=== PATIENT | female | born 1955 | race Caucasian/White ===

== ENCOUNTER 2019-02-20 01:18 | Inpatient (IN) ==
[2019-02-20 02:09] LABS: Hematocrit (blood only) 22.5 % (37-47); Hemoglobin 7.6 g/dL (12.0-16.0); Mean Corpuscular Hemoglobin 29.6 pg (25-34); Mean Corpuscular Hgb Conc 33.8 g/dL (32-36); Mean Corpuscular Volume 87.5 fL (80-100); Nucleated RBC # (auto) 0.02 K/uL (0-0); Nucleated RBC % (auto) 1.1 %; RDW Coefficient of Variation 16.6 % (11.5-14.5); RDW Standard Deviation 52.2 fL (36.4-46.3); Red Blood Count 2.57 M/uL (4.2-5.4); White Blood Count 1.95 K/uL (4.8-10.8)
[2019-02-20 02:21] LABS: Partial Thromboplastin Ratio 0.9; Partial Thromboplastin Time 23.5 Seconds (21.0-31.0); Prothrombin Time 10.4 Seconds (9.0-12.0)
[2019-02-20 02:26] LABS: Albumin Level 3.7 gm/dl (3.4-5.0); BUN Creatinine Ratio 21.1 (10-20); Calcium 8.9 mg/dl (8.5-10.1); Est GFR (African American) 106.9; Est GFR (Non-African American) 92.2; Potassium 3.9 mmol/L (3.5-5.1)
[2019-02-20 02:29] LABS: Albumin Globulin Ratio 1.1 (0.9-2); Bilirubin,Total 0.3 mg/dl (0.2-1); Globulin 3.3 gm/dl (2.5-4.0)
[2019-02-20 02:39] LABS: Eosinophils # (auto) 0.03 K/uL (0-0.5); Eosinophils % (auto) 1.5 %; Lymphocytes # (auto) 0.47 K/uL (1.2-3.4); Lymphocytes % (auto) 24.1 %; Mean Platelet Volume 9.4 fL (7.4-10.4); Monocytes % (auto) 30.8 %; Neutrophils # (auto) 0.85 K/uL (1.4-6.5); Neutrophils % (auto) 43.6 %; Platelet Count 86 K/uL (130-400)
[2019-02-20 02:40] LABS: Platelet Estimate Decreased (Normal); RBC Morphology Unremarkable
[2019-02-20] MEDS ORDERED: IMIPENEM/CILASTATIN SODIUM 500 MG in DEXTROSE 5% 100 ML IV STA (03:18)
[2019-02-20] MEDS ORDERED: DAPTOmycin 500 MG in SYRINGE 0 ML IV STA (03:18)
[2019-02-20] MEDS ORDERED: SODIUM CHLORIDE 0.9% 1000ML 1,000 ML IV ONE (03:19)
[2019-02-20 04:16] LABS: Appearance Urine Cloudy (Clear); Bacteria Urine Automated Negative (Negative); Bilirubin Urine Negative (Negative); Blood Urine Negative (Negative); Color Urine Yellow; Epithelial Cell Urine Auto 20-30 /lpf (0-5); Glucose Urine UA Negative (Negative); Ketones Urine Negative (Negative); Leukocyte Esterase Urine 1+ (Negative); Nitrite Urine Negative (Negative); Protein Urine Negative (Negative); RBC Urine Automated 0-4 /hpf (0-4); Specific Gravity Urine 1.017 (1.000-1.030); Urobilinogen Urine Negative (Negative); pH Urine 7.5 (4.5-7.5)
--- NOTE | 2019-02-20 05:01 | History & Physical Report ---
Date of Service February 20, 2019 Assessment & Plan (1) Severe sepsis: SIRS plus lactic acid elevation Immunocompromised patient Chronic pancytopenia hx ALL ongoing chemotherapy status post Ommaya reservoir placement on antibiotic/antiviral/antifungal prophylaxis, ? Complicated UTI as source chronic anemia, hemoglobin at baseline GMF Cultures, Daptomycin, cefepime IVF, follow lactic acid DVT prophylaxis. SCDs RE thrombocytopenia Full code History of Present Illness Chief Complaint: Fever Primary Care Provider: Nicolas Cervantes DO History obtained from patient, family, and records. Medical history significant for ALL ongoing chemotherapy status post Ommaya reservoir placement on antibiotic/antiviral/antifungal prophylaxis, chronic anemia (baseline hemoglobin 78), chronic thrombocytopenia. 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 Recent chemotherapy at [facility] [place]/16/19. Patient was trying to get sleep last night when she suddenly felt cold. Temperature 101.4 Denies chest pain, S OB, cough, abdominal pain, diarrhea, dysuria. Transient frontal headache symptoms. At the ER, patient received daptomycin and imipenem for possible sepsis. Medical History as above Surgical History : Dental surgery, partial hysterectomy, a port placement, [employer] ventricular catheter placement Family History : Multiple myeloma, thalassemia, diabetes, heart disease Personal/Social history : Non-smoker, no EtOH intake, homemaker Allergies Allergy/AdvReac Type Severity Reaction Status Date / Time nickel Allergy Rash Verified 02/20/19 07:53 Home Medications Home Medications Medication Instructions Recorded Confirmed Type cholecalciferol (vitamin D3) 2,000 unit PO DAILY 12/20/18 02/20/19 History [Vitamin D3] docusate sodium [Colace] 100 mg PO BID 12/20/18 02/20/19 History acyclovir 400 mg PO BID 02/20/19 02/20/19 History cytarabine (PF) 140 mg SUBCUT DIRECTED 02/20/19 02/20/19 History fluconazole 400 mg PO DAILY 02/20/19 02/20/19 History glucosamine sulfate [Glucosamine] 500 mg PO DAILY 02/20/19 02/20/19 History levofloxacin 500 mg PO DAILY 02/20/19 02/20/19 History lidocaine-prilocaine 1 ea TOPICAL DIRECTED 02/20/19 02/20/19 History mercaptopurine 50 mg PO DAILY 02/20/19 02/20/19 History mupirocin 1 applic TOPICAL BID 02/20/19 02/20/19 History ondansetron HCl [Zofran] 8 mg PO TID PRN 02/20/19 02/20/19 History sulfamethoxazole-trimethoprim 1 tab PO DAILY 02/20/19 02/20/19 History Past Med/Surg History Medical History (Updated 02/20/19 @ 09:05 by Fady Nickerson MD) Leukemia Sciatica (Chronic) Family History (Updated 12/20/18 @ 17:51 by Alyce Healy) Other No significant family history Social History (Updated 12/20/18 @ 17:51 by Alyce Healy) Preferred Language: Urdu Communication Ability: Effective Payable Processor Required: No Beliefs That Will Affect Care: None Current Living Situation: Spouse and Family Current Living Situation Comment: daughter and family with patient now Other Information That Helps Us Care for You: No Feels Safe at Home: Yes Safety Concerns: Feels Safe At This Time Smoking Status: Never smoker Do You Dip or Chew Tobacco: No ; Second Hand Exposure: No ; Tobacco Cessation Education Requested by Patient: No Hx Alcohol Use: No Hx Substance Use: No Review of Systems Review of Systems: As per HPI, all 10 systems reviewed, all other ROS negative Physical Exam Physical Exam: GENERAL: Slightly uncomfortable, pleasant, no respiratory distress SKIN: Pallor , warm HEENT: Healed incisional scar on right parietal area of the head, partial alopecia, pale palpebral conjunctivae, no ptosis, dry buccal mucosa NECK : Supple, no tenderness CHEST : CTA, no tenderness HEART : RRR, no obvious murmurs ABDOMEN: Soft, nontender EXTREMITIES : No LE swelling/tenderness, no other conspicuous deformities noted NEUROLOGIC : Coherent, no facial asymmetry, no other gross focality Results & Data Vital Signs (Past 12 Hours) Vital Signs Temp Pulse Pulse Resp BP BP Pulse Ox 02/20/19 04:17 37.2 C 02/20/19 04:05 87 20 123/67 99 02/20/19 03:05 90 20 102/63 98 02/20/19 02:22 92 H 20 107/71 98 02/20/19 02:05 98 02/20/19 01:21 37.5 C 100 H 20 131/68 100 Laboratory Results Laboratory Results WBC 1.95 K/uL (4.8-10.8) L 02/20/19 01:53 RBC 2.57 M/uL (4.2-5.4) L 02/20/19 01:53 Hgb 7.6 g/dL (12.0-16.0) L 02/20/19 01:53 Hct 22.5 % (37-47) L 02/20/19 01:53 MCV 87.5 fL (80-100) 02/20/19 01:53 MCH 29.6 pg (25-34) 02/20/19 01:53 MCHC 33.8 g/dL (32-36) 02/20/19 01:53 RDW Std Deviation 52.2 fL (36.4-46.3) H 02/20/19 01:53 RDW Coeff of Julissa 16.6 % (11.5-14.5) H 02/20/19 01:53 Plt Count 86 K/uL (130-400) L 02/20/19 01:53 MPV 9.4 fL (7.4-10.4) 02/20/19 01:53 Immature Gran % (Auto) 0.0 % 02/20/19 01:53 Neut % (Auto) 43.6 % 02/20/19 01:53 Lymph % (Auto) 24.1 % 02/20/19 01:53 [place] % (Auto) 30.8 % 02/20/19 01:53 Eos % (Auto) 1.5 % 02/20/19 01:53 Baso % (Auto) 0.0 % 02/20/19 01:53 Immature Gran # (Auto) 0.00 K/uL (0.00-0.02) 02/20/19 01:53 Neut # (Auto) 0.85 K/uL (1.4-6.5) L* 02/20/19 01:53 Lymph # (Auto) 0.47 K/uL (1.2-3.4) L 02/20/19 01:53 [place] # (Auto) 0.60 K/uL (0.11-0.59) H 02/20/19 01:53 Eos # (Auto) 0.03 K/uL (0-0.5) 02/20/19 01:53 Baso # (Auto) 0.00 K/uL (0-0.2) 02/20/19 01:53 Absolute Nucleated RBC 0.02 K/uL (0-0) H 02/20/19 01:53 Nucleated RBC % (auto) 1.1 % 02/20/19 01:53 Platelet Estimate Decreased (Normal) L 02/20/19 01:53 RBC Morphology Unremarkable 02/20/19 01:53 PT 10.4 Seconds (9.0-12.0) 02/20/19 01:53 INR 1.0 (0.9-1.1) 02/20/19 01:53 APTT 23.5 Seconds (21.0-31.0) 02/20/19 01:53 PTT Ratio 0.9 02/20/19 01:53 Sodium 134 mmol/L (136-145) L 02/20/19 01:53 Potassium 3.9 mmol/L (3.5-5.1) 02/20/19 01:53 Chloride 103 mmol/L (98-107) 02/20/19 01:53 Carbon Dioxide 21 mmol/L (21-32) 02/20/19 01:53 Anion Gap 10.0 (3-11) 02/20/19 01:53 BUN 15 mg/dl (7-18) 02/20/19 01:53 Creatinine 0.70 mg/dl (0.6-1.2) 02/20/19 01:53 Est Cr Clr Drug Dosing 79.0 ml/min 02/20/19 01:53 Est GFR ( Amer) 106.9 02/20/19 01:53 Est GFR (Non-Af Amer) 92.2 02/20/19 01:53 BUN/Creatinine Ratio 21.1 (10-20) H 02/20/19 01:53 Glucose 126 mg/dl (70-99) H 02/20/19 01:53 Lactate 2.3 mmol/L (0.4-2.0) H* 02/20/19 02:19 Calcium 8.9 mg/dl (8.5-10.1) 02/20/19 01:53 Magnesium 2.0 mg/dl (1.8-2.4) 02/20/19 01:53 Total Bilirubin 0.3 mg/dl (0.2-1) 02/20/19 01:53 AST 35 U/L (15-37) 02/20/19 01:53 ALT 80 U/L (12-78) H 02/20/19 01:53 Alkaline Phosphatase 83 U/L (45-117) 02/20/19 01:53 Total Protein 7.0 gm/dl (6.4-8.2) 02/20/19 01:53 Albumin 3.7 gm/dl (3.4-5.0) 02/20/19 01:53 Globulin 3.3 gm/dl (2.5-4.0) 02/20/19 01:53 Albumin/Globulin Ratio 1.1 (0.9-2) 02/20/19 01:53 Urine Color Yellow 02/20/19 04:00 Urine Appearance Cloudy (Clear) A 02/20/19 04:00 Urine pH 7.5 (4.5-7.5) 02/20/19 04:00 Ur Specific [place] 1.017 (1.000-1.030) 02/20/19 04:00 Urine Protein Negative (Negative) 02/20/19 04:00 Urine Glucose (UA) Negative (Negative) 02/20/19 04:00 Urine Ketones Negative (Negative) 02/20/19 04:00 Urine Blood Negative (Negative) 02/20/19 04:00 Urine Nitrite Negative (Negative) 02/20/19 04:00 Urine Bilirubin Negative (Negative) 02/20/19 04:00 Urine Urobilinogen Negative (Negative) 02/20/19 04:00 Ur Leukocyte Esterase 1+ (Negative) H 02/20/19 04:00 Urine WBC (Auto) 1-5 /hpf (0-5) 02/20/19 04:00 Urine RBC (Auto) 0-4 /hpf (0-4) 02/20/19 04:00 U Hyaline Cast (Auto) 1-5 /lpf (0-5) 02/20/19 04:00 U Epithel Cells (Auto) 20-30 /lpf (0-5) H 02/20/19 04:00 Urine Bacteria (Auto) Negative (Negative) 02/20/19 04:00 Influenza Type A Ag Neg for Influ A (Neg) 02/20/19 01:53 Influenza Type B Ag Neg for Influ B (Neg) 02/20/19 01:53 Diagnostic Findings Chest x-ray as per my interpretation no infiltrate EKG as per my interpretation : Rate 90, NSR, normal axis, no ischemia C initial read: Right frontal ventriculostomy extending into right lateral ventricle. Ventricular system is nondilated. No mass lesion or midline shift. No evidence of large vessel infarct or intracranial hemorrhage.
--- NOTE | 2019-02-20 05:51 | CT Scan Report ---
CT head/brain wo con CT DOSE: 614.27 mGy.cm HISTORY: Mental status change altamirano, hx ommaya procedure TECHNIQUE: Multiaxial CT images of the head were performed without the use of intravenous contrast. A dose lowering technique was utilized adhering to the principles of ALARA. Comparison: 12/20/2018 Findings: The paranasal sinuses and mastoid air cells are clear. Transcatheter previously placed with in the right frontal lobe region extending to the right lateral ventricle. No acute intracranial abno rmality. Minimal findings of scattered encephalomalacia. No acute intracranial hemorrhage. Impression: Chronic and postoperative change. No acute process. ACT 112: Negative or not required by law. The above report was generated using voice recognition software. It may contain grammatical, syntax or spelling errors. Electronically signed by: Nathanael Sood M.D. 02/20/2019 5:50 AM
--- NOTE | 2019-02-20 06:08 | XRay Report ---
XR chest 1V portable CLINICAL HISTORY: SEPSIS dyspnea COMPARISON STUDY: 12/20/2018 FINDINGS: Central catheter positioned within the superior vena cava. Diaphragms are smooth. Lungs are clear. IMPRESSION: No acute process. ACT 112: Negative or not required by law. The above report was generated using voice recognition software. It may contain grammatical, syntax or spelling errors. Electronically signed by: Nathanael Sood M.D. 02/20/2019 6:07 AM
--- NOTE | 2019-02-20 07:24 | Emergency Department Note ---
Entered by Milton Swann acting as a scribe for History of Present Illness General Chief complaint: Fever Stated complaint: 101.4 FEVER - REF BY Time Seen by Provider: 02/20/19 01:32 Source: patient History of Present Illness Onset (ago): day(s) (last night) Severity: moderate (101.4 degree fever) Pain Consistency: + constant Maximum Pain Intensity: 1 Quality: + other (fever) Associated symptoms: + other (Positive for being cold. Negative for cough, SOB, abdominal pain, new rashes, urinary symptoms, and problems with her bowels.) The patient is a 63 year old female who presents to the emergency department with complaints of a constant fever beginning last night. The patient states that she has a history of leukemia and is receiving chemotherapy. She notes that she felt cold when she woke up this morning, and she reports that she had a 101.4 degree fever at that time. She denies any cough, SOB, abdominal pain, new rashes, urinary symptoms, and problems with her bowels. The patient states that she does not have any other health problems. Home Medications Home Medications Medication Instructions Recorded Confirmed Type cholecalciferol (vitamin D3) 2,000 unit PO DAILY 12/20/18 02/20/19 History [Vitamin D3] docusate sodium [Colace] 100 mg PO BID 12/20/18 02/20/19 History acyclovir 400 mg PO BID 02/20/19 02/20/19 History cytarabine (PF) 140 mg SUBCUT DIRECTED 02/20/19 02/20/19 History fluconazole 400 mg PO DAILY 02/20/19 02/20/19 History glucosamine sulfate [Glucosamine] 500 mg PO DAILY 02/20/19 02/20/19 History levofloxacin 500 mg PO DAILY 02/20/19 02/20/19 History lidocaine-prilocaine 1 ea TOPICAL DIRECTED 02/20/19 02/20/19 History mercaptopurine 50 mg PO DAILY 02/20/19 02/20/19 History mupirocin 1 applic TOPICAL BID 02/20/19 02/20/19 History ondansetron HCl [Zofran] 8 mg PO TID PRN 02/20/19 02/20/19 History sulfamethoxazole-trimethoprim 1 tab PO DAILY 02/20/19 02/20/19 History Allergies Allergy/AdvReac Type Severity Reaction Status Date / Time nickel Allergy Rash Verified 02/20/19 07:53 Past Med/Surg History Medical History (Updated 02/21/19 @ 08:08 by Anali Morataya DO) Leukemia Sciatica (Chronic) Family History (Updated 12/20/18 @ 17:51 by Alyce Healy) Other No significant family history Social History (Updated 12/20/18 @ 17:51 by Alyce Healy) Preferred Language: [place] Communication Ability: Effective 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 and A total of 10 systems reviewed and were otherwise negative Physical Exam Vital Signs Vital Signs - 24 hr 02/20/19 09:09 Pulse Rate [Right Finger] 92 H Respiratory Rate 20 Blood Pressure [Right Arm] 104/54 L Blood Pressure Mean [Right Arm] 70 Pulse Oximetry 93 Oxygen Delivery Method Room Air HEENT: Head - normocephalic and atraumatic Pupils are equal, round, and reactive to light. Extraocular eye muscles are intact, and sclera are anicteric. Nose - moist nasal mucosa without discharge. Mouth - moist buccal mucosa. Oropharynx is nonerythematous and there is no tonsillar exudate or edema noted. Neck: Supple; no cervical lymphadenopathy or nuchal rigidity Heart: Regular rate and rhythm. There is a normal S1 and S2 with no murmurs, clicks, or gallops appreciated. Lungs: Clear to auscultation bilaterally with no wheezes, rales, or rhonchi. Abdomen: Soft, completely nontender, nondistended, with good bowel sounds. There are no palpable pulsatile masses or hepatosplenomegaly. There is no guarding, rigidity, or rebound noted. Extremities: No evidence of cyanosis, clubbing, or edema. There are easily palpable peripheral pulses. Skin: warm and dry with good turgor and no rashes. Pale. Course Course 0156: The patient was evaluated in room B8. A complete history and physical examination were performed. A septic protocol was performed. The patient was placed into isolation. Nursing notes and previous electronic medical records were reviewed. IV lock was established and labs were drawn as above. A twelve- lead EKG was obtained 0320: I rechecked the patient and discussed her results. She would like to stay here and not be transferred. 0331: Sodium Chloride 1000 mls @ 999 mls/hr IV. I discussed the case with the hospitalist and he is agreeable to evaluate her for admission to [facility]. 0337: Upon reevaluation, the patient is stable. I discussed the findings and the treatment plan with the patient. She expresses agreement and understanding. [facility] The patient will be evaluated for further management. Consultations Consultation #1: I reviewed the patient's case with Dr. Nickerson - Hospitalist, [facility]. He will evaluate the patient for further management. Time: 03:37 Administered Medications Acetaminophen (Tylenol) 650 mg PO Q4H PRN PRN Reason: pain/fever Stop: 03/22/19 09:30 Last Admin: 02/20/19 23:28 Dose: 650 mg Documented by: [id number] Admin: 02/20/19 15:04 Dose: 650 mg Documented by: [id number] Acyclovir (Zovirax) 400 mg PO BID ORTEGA Stop: 03/22/19 09:30 Last Admin: 02/21/19 07:48 Dose: 400 mg Documented by: [id number] Admin: 02/20/19 20:59 Dose: 400 mg Documented by: [id number] Admin: 02/20/19 09:53 Dose: 400 mg Documented by: [id number] Docusate Sodium (Colace) 100 mg PO BID ORTEGA Stop: 03/22/19 09:30 Last Admin: 02/21/19 07:48 Dose: 100 mg Documented by: [id number] Admin: 02/20/19 20:59 Dose: 100 mg Documented by: [id number] Admin: 02/20/19 09:53 Dose: 100 mg Documented by: [id number] Fluconazole (Diflucan) 400 mg PO DAILY ORTEGA Stop: 03/22/19 09:30 Last Admin: 02/21/19 07:48 Dose: 400 mg Documented by: [id number] Admin: 02/20/19 09:53 Dose: 400 mg Documented by: [id number] Cefepime HCl 2,000 mg/ Syringe 20 mls @ 5 mls/min IV Q8H ORTEGA; Protocol Stop: 02/22/19 10:14 Last Admin: 02/21/19 01:38 Dose: 5 mls/min Documented by: [id number] Admin: 02/20/19 17:55 Dose: 5 mls/min Documented by: [id number] Admin: 02/20/19 11:01 Dose: 5 mls/min Documented by: [id number] Daptomycin 450 mg/ Syringe 9 mls @ 0 mls/min IV Q24H ORTEGA; Protocol Stop: 02/23/19 03:59 Last Admin: 02/21/19 03:49 Dose: 4.5 mls/min Documented by: [id number] Ibuprofen (Advil) 200 mg PO Q6H PRN PRN Reason: Mild Pain Stop: 03/22/19 09:30 Last Admin: 02/21/19 00:13 Dose: 200 mg Documented by: [id number] Discontinued Medications Imipenem/Cilastatin Sodium 500 (mg/ Dextrose) 110 mls @ 100 mls/hr IV NOW STA; Protocol Stop: 02/20/19 04:23 Last Infusion: 02/20/19 05:16 Dose: 0 mls/hr Documented by: [id number] Admin: 02/20/19 04:01 Dose: 100 mls/hr Documented by: [id number] Daptomycin 500 mg/ Syringe 10 mls @ 5 mls/min IV NOW STA; Protocol Stop: 02/20/19 03:19 Last Admin: 02/20/19 03:59 Dose: 5 mls/min Documented by: [id number] Sodium Chloride (Nss 1000ml) 1,000 mls @ 999 mls/hr IV .[id number] ONE Stop: 02/20/19 04:19 Last Infusion: 02/20/19 04:34 Dose: 0 mls/hr Documented by: [id number] Admin: 02/20/19 03:31 Dose: 999 mls/hr Documented by: [id number] Lactated Ringer's (Lr) 1,000 mls @ 60 mls/hr IV .[id number] ONE Stop: 02/21/19 02:10 Last Infusion: 02/21/19 00:48 Dose: 0 mls/hr Documented by: [id number] Admin: 02/20/19 10:01 Dose: 60 mls/hr Documented by: [id number] Lactated Ringer's (Lr) 1,000 mls @ 200 mls/hr IV .Q5H ONE Stop: 02/21/19 05:34 Last Infusion: 02/21/19 05:46 Dose: 0 mls/hr Documented by: [id number] Admin: 02/21/19 00:46 Dose: 200 mls/hr Documented by: [id number] Medical Decision Making Differential Diagnosis Differential diagnoses include: sepsis, neutropenic fever, influenza, UTI, and pneumonia. Medical Records Attestation: I reviewed the patient's medical records. Home Medications Current Medication List: was personally reviewed by me Laboratory Data Attestation: I reviewed the patient's lab results. Result diagrams: 02/21/19 05:32 02/21/19 05:32 Lab Results 02/20/19 02/20/19 02/20/19 Range/Units 01:53 01:53 01:53 WBC 1.95 L (4.8-10.8) K/uL RBC 2.57 L (4.2-5.4) M/uL Hgb 7.6 L (12.0-16.0) g/dL Hct 22.5 L (37-47) % MCV 87.5 (80-100) fL MCH 29.6 (25-34) pg MCHC 33.8 (32-36) g/dL RDW Std Deviation 52.2 H (36.4-46.3) fL RDW Coeff of Julissa 16.6 H (11.5-14.5) % Plt Count 86 L (130-400) K/uL MPV 9.4 (7.4-10.4) fL Immature Gran % (Auto) 0.0 % Neut % (Auto) 43.6 % Lymph % (Auto) 24.1 % [place] % (Auto) 30.8 % Eos % (Auto) 1.5 % Baso % (Auto) 0.0 % Immature Gran # (Auto) 0.00 (0.00-0.02) K/uL Neut # (Auto) 0.85 L* (1.4-6.5) K/uL Lymph # (Auto) 0.47 L (1.2-3.4) K/uL [place] # (Auto) 0.60 H (0.11-0.59) K/uL Eos # (Auto) 0.03 (0-0.5) K/uL Baso # (Auto) 0.00 (0-0.2) K/uL Absolute Nucleated RBC 0.02 H (0-0) K/uL Nucleated RBC % (auto) 1.1 % Platelet Estimate Decreased L (Normal) RBC Morphology Unremarkable PT 10.4 (9.0-12.0) Seconds INR 1.0 (0.9-1.1) APTT 23.5 (21.0-31.0) Seconds PTT Ratio 0.9 Sodium 134 L (136-145) mmol/L Potassium 3.9 (3.5-5.1) mmol/L Chloride 103 (98-107) mmol/L Carbon Dioxide 21 (21-32) mmol/L Anion Gap 10.0 (3-11) BUN 15 (7-18) mg/dl Creatinine 0.70 (0.6-1.2) mg/dl Est Cr Clr Drug Dosing 79.0 ml/min Est GFR ( Amer) 106.9 Est GFR (Non-Af Amer) 92.2 BUN/Creatinine Ratio 21.1 H (10-20) Glucose 126 H (70-99) mg/dl Lactate (0.4-2.0) mmol/L Calcium 8.9 (8.5-10.1) mg/dl Magnesium 2.0 (1.8-2.4) mg/dl Total Bilirubin 0.3 (0.2-1) mg/dl AST 35 (15-37) U/L ALT 80 H (12-78) U/L Alkaline Phosphatase 83 (45-117) U/L Total Protein 7.0 (6.4-8.2) gm/dl Albumin 3.7 (3.4-5.0) gm/dl Globulin 3.3 (2.5-4.0) gm/dl Albumin/Globulin Ratio 1.1 (0.9-2) Procalcitonin (0-0.5) ng/ml TSH (0.300-4.500) uIu/ml Urine Color Urine Appearance (Clear) Urine pH (4.5-7.5) Ur Specific [place] (1.000-1.030) Urine Protein (Negative) Urine Glucose (UA) (Negative) Urine Ketones (Negative) Urine Blood (Negative) Urine Nitrite (Negative) Urine Bilirubin (Negative) Urine Urobilinogen (Negative) Ur Leukocyte Esterase (Negative) Urine WBC (Auto) (0-5) /hpf Urine RBC (Auto) (0-4) /hpf U Hyaline Cast (Auto) (0-5) /lpf U Epithel Cells (Auto) (0-5) /lpf Urine Bacteria (Auto) (Negative) Influenza Type A Ag (Neg) Influenza Type B Ag (Neg) Blood Type Antibody Screen Crossmatch 02/20/19 02/20/19 02/20/19 Range/Units 01:53 02:19 04:00 WBC (4.8-10.8) K/uL RBC (4.2-5.4) M/uL Hgb (12.0-16.0) g/dL Hct (37-47) % MCV (80-100) fL MCH (25-34) pg MCHC (32-36) g/dL RDW Std Deviation (36.4-46.3) fL RDW Coeff of Julissa (11.5-14.5) % Plt Count (130-400) K/uL MPV (7.4-10.4) fL Immature Gran % (Auto) % Neut % (Auto) % Lymph % (Auto) % [place] % (Auto) % Eos % (Auto) % Baso % (Auto) % Immature Gran # (Auto) (0.00-0.02) K/uL Neut # (Auto) (1.4-6.5) K/uL Lymph # (Auto) (1.2-3.4) K/uL [place] # (Auto) (0.11-0.59) K/uL Eos # (Auto) (0-0.5) K/uL Baso # (Auto) (0-0.2) K/uL Absolute Nucleated RBC (0-0) K/uL Nucleated RBC % (auto) % Platelet Estimate (Normal) RBC Morphology PT (9.0-12.0) Seconds INR (0.9-1.1) APTT (21.0-31.0) Seconds PTT Ratio Sodium (136-145) mmol/L Potassium (3.5-5.1) mmol/L Chloride (98-107) mmol/L Carbon Dioxide (21-32) mmol/L Anion Gap (3-11) BUN (7-18) mg/dl Creatinine (0.6-1.2) mg/dl Est Cr Clr Drug Dosing ml/min Est GFR ( Amer) Est GFR (Non-Af Amer) BUN/Creatinine Ratio (10-20) Glucose (70-99) mg/dl Lactate 2.3 H* (0.4-2.0) mmol/L Calcium (8.5-10.1) mg/dl Magnesium (1.8-2.4) mg/dl Total Bilirubin (0.2-1) mg/dl AST (15-37) U/L ALT (12-78) U/L Alkaline Phosphatase (45-117) U/L Total Protein (6.4-8.2) gm/dl Albumin (3.4-5.0) gm/dl Globulin (2.5-4.0) gm/dl Albumin/Globulin Ratio (0.9-2) Procalcitonin (0-0.5) ng/ml TSH (0.300-4.500) uIu/ml Urine Color Yellow Urine Appearance Cloudy A (Clear) Urine pH 7.5 (4.5-7.5) Ur Specific [place] 1.017 (1.000-1.030) Urine Protein Negative (Negative) Urine Glucose (UA) Negative (Negative) Urine Ketones Negative (Negative) Urine Blood Negative (Negative) Urine Nitrite Negative (Negative) Urine Bilirubin Negative (Negative) Urine Urobilinogen Negative (Negative) Ur Leukocyte Esterase 1+ H (Negative) Urine WBC (Auto) 1-5 (0-5) /hpf Urine RBC (Auto) 0-4 (0-4) /hpf U Hyaline Cast (Auto) 1-5 (0-5) /lpf U Epithel Cells (Auto) 20-30 H (0-5) /lpf Urine Bacteria (Auto) Negative (Negative) Influenza Type A Ag Neg for Influ A (Neg) Influenza Type B Ag Neg for Influ B (Neg) Blood Type Antibody Screen Crossmatch 02/20/19 02/20/19 02/20/19 Range/Units 04:31 04:31 04:31 WBC (4.8-10.8) K/uL RBC (4.2-5.4) M/uL Hgb (12.0-16.0) g/dL Hct (37-47) % MCV (80-100) fL MCH (25-34) pg MCHC (32-36) g/dL RDW Std Deviation (36.4-46.3) fL RDW Coeff of Julissa (11.5-14.5) % Plt Count (130-400) K/uL MPV (7.4-10.4) fL Immature Gran % (Auto) % Neut % (Auto) % Lymph % (Auto) % [place] % (Auto) % Eos % (Auto) % Baso % (Auto) % Immature Gran # (Auto) (0.00-0.02) K/uL Neut # (Auto) (1.4-6.5) K/uL Lymph # (Auto) (1.2-3.4) K/uL [place] # (Auto) (0.11-0.59) K/uL Eos # (Auto) (0-0.5) K/uL Baso # (Auto) (0-0.2) K/uL Absolute Nucleated RBC (0-0) K/uL Nucleated RBC % (auto) % Platelet Estimate (Normal) RBC Morphology PT (9.0-12.0) Seconds INR (0.9-1.1) APTT (21.0-31.0) Seconds PTT Ratio Sodium (136-145) mmol/L Potassium (3.5-5.1) mmol/L Chloride (98-107) mmol/L Carbon Dioxide (21-32) mmol/L Anion Gap (3-11) BUN (7-18) mg/dl Creatinine (0.6-1.2) mg/dl Est Cr Clr Drug Dosing ml/min Est GFR ( Amer) Est GFR (Non-Af Amer) BUN/Creatinine Ratio (10-20) Glucose (70-99) mg/dl Lactate (0.4-2.0) mmol/L Calcium (8.5-10.1) mg/dl Magnesium (1.8-2.4) mg/dl Total Bilirubin (0.2-1) mg/dl AST (15-37) U/L ALT (12-78) U/L Alkaline Phosphatase (45-117) U/L Total Protein (6.4-8.2) gm/dl Albumin (3.4-5.0) gm/dl Globulin (2.5-4.0) gm/dl Albumin/Globulin Ratio (0.9-2) Procalcitonin < 0.05 (0-0.5) ng/ml TSH 2.060 (0.300-4.500) uIu/ml Urine Color Urine Appearance (Clear) Urine pH (4.5-7.5) Ur Specific [place] (1.000-1.030) Urine Protein (Negative) Urine Glucose (UA) (Negative) Urine Ketones (Negative) Urine Blood (Negative) Urine Nitrite (Negative) Urine Bilirubin (Negative) Urine Urobilinogen (Negative) Ur Leukocyte Esterase (Negative) Urine WBC (Auto) (0-5) /hpf Urine RBC (Auto) (0-4) /hpf U Hyaline Cast (Auto) (0-5) /lpf U Epithel Cells (Auto) (0-5) /lpf Urine Bacteria (Auto) (Negative) Influenza Type A Ag (Neg) Influenza Type B Ag (Neg) Blood Type B Negative Antibody Screen NEGATIVE Crossmatch See Detail 02/20/19 Range/Units 04:31 WBC (4.8-10.8) K/uL RBC (4.2-5.4) M/uL Hgb (12.0-16.0) g/dL Hct (37-47) % MCV (80-100) fL MCH (25-34) pg MCHC (32-36) g/dL RDW Std Deviation (36.4-46.3) fL RDW Coeff of Julissa (11.5-14.5) % Plt Count (130-400) K/uL MPV (7.4-10.4) fL Immature Gran % (Auto) % Neut % (Auto) % Lymph % (Auto) % [place] % (Auto) % Eos % (Auto) % Baso % (Auto) % Immature Gran # (Auto) (0.00-0.02) K/uL Neut # (Auto) (1.4-6.5) K/uL Lymph # (Auto) (1.2-3.4) K/uL [place] # (Auto) (0.11-0.59) K/uL Eos # (Auto) (0-0.5) K/uL Baso # (Auto) (0-0.2) K/uL Absolute Nucleated RBC (0-0) K/uL Nucleated RBC % (auto) % Platelet Estimate (Normal) RBC Morphology PT (9.0-12.0) Seconds INR (0.9-1.1) APTT (21.0-31.0) Seconds PTT Ratio Sodium (136-145) mmol/L Potassium (3.5-5.1) mmol/L Chloride (98-107) mmol/L Carbon Dioxide (21-32) mmol/L Anion Gap (3-11) BUN (7-18) mg/dl Creatinine (0.6-1.2) mg/dl Est Cr Clr Drug Dosing ml/min Est GFR ( Amer) Est GFR (Non-Af Amer) BUN/Creatinine Ratio (10-20) Glucose (70-99) mg/dl Lactate 1.3 (0.4-2.0) mmol/L Calcium (8.5-10.1) mg/dl Magnesium (1.8-2.4) mg/dl Total Bilirubin (0.2-1) mg/dl AST (15-37) U/L ALT (12-78) U/L Alkaline Phosphatase (45-117) U/L Total Protein (6.4-8.2) gm/dl Albumin (3.4-5.0) gm/dl Globulin (2.5-4.0) gm/dl Albumin/Globulin Ratio (0.9-2) Procalcitonin (0-0.5) ng/ml TSH (0.300-4.500) uIu/ml Urine Color Urine Appearance (Clear) Urine pH (4.5-7.5) Ur Specific [place] (1.000-1.030) Urine Protein (Negative) Urine Glucose (UA) (Negative) Urine Ketones (Negative) Urine Blood (Negative) Urine Nitrite (Negative) Urine Bilirubin (Negative) Urine Urobilinogen (Negative) Ur Leukocyte Esterase (Negative) Urine WBC (Auto) (0-5) /hpf Urine RBC (Auto) (0-4) /hpf U Hyaline Cast (Auto) (0-5) /lpf U Epithel Cells (Auto) (0-5) /lpf Urine Bacteria (Auto) (Negative) Influenza Type A Ag (Neg) Influenza Type B Ag (Neg) Blood Type Antibody Screen Crossmatch Imaging Data Attestation: I personally reviewed and interpreted this imaging study as follows: My Impression: CHEST X-RAY: Mediport in place. No obvious pulmonary infiltrate or consolidation. ECG Data Attestation: I personally reviewed and interpreted this ECG as follows: Indication: + weakness Rate (beats per minute): 91 Rhythm: + normal sinus ECG ST segments: no ST depression and no ST elevation ECG Findings: no PACs and no PVCs Blood Pressure Blood Pressure Findings: Normal blood pressure Blood Pressure Disposition: did not require urgent referral MDM Narrative The patient is a 63 year old female who presents to the emergency department with complaints of a constant fever beginning last night. The patient has a history of recently diagnosed leukemia and has been receiving intensive tez motherapy. She presents to the emergency department tonight with no specific symptoms but did have a fever. On laboratory testing, the patient appears to have pancytopenia and most concerning her absolute neutrophil count is quite low. The patient had an elevated lactate and therefore will be treated as sepsis. She was treated with broad-spectrum IV antibiotics for a neutropenic fever. The patient was requesting admission to [facility] as opposed to being transferred to [facility]. I discussed the case with Dr. Morris and he was willing to do this. The patient's blood pressure was slightly low but she states that normally it may be in the 90s. Impression & Plan Neutropenic fever, Pancytopenia Discharge Plan Visit Data *Final* Discharge Date/Time: 02/20/19 09:20 Chief Complaint: Fever Stated Complaint: 101.4 FEVER - REF BY ED Provider: Anali Morataya Discharge Problem: Neutropenic fever, Pancytopenia Patient Disposition: Admitted As Inpatient Discharge Instructions Interventions: ED Discharge Assessment Last Done: 02/20/19 09:20 The scribe's documentation has been prepared under my direction and personally reviewed by me in its entirety. I confirm that the note above accurately reflects all work, treatment, procedures, and medical decision making performed by me.
[2019-02-20] MEDS ORDERED: LACTATED RINGER'S 1,000 ML IV ONE (09:31)
[2019-02-20] MEDS ORDERED: PROMETHAZINE HCL 12.5 MG in SODIUM CHLORIDE 0.9% 50 ML IV PRN (09:31)
[2019-02-20] MEDS ORDERED: CONSULT PHARMACY SCH (09:31)
[2019-02-20] MEDS ORDERED: IBUPROFEN 200 MG TAB PO PRN (09:31)
[2019-02-20] MEDS ORDERED: LORazepam 0.25 MG/0.5 ML VIAL IV PRN (09:31)
[2019-02-20] MEDS: FLUCONAZOLE 100 MG TAB PO SCH (09:53)
[2019-02-20] MEDS: ACYCLOVIR 400 MG TAB PO SCH ×2 (09:53→20:59)
[2019-02-20] MEDS: DOCUSATE SODIUM 100 MG CAP PO SCH ×2 (09:53→20:59)
[2019-02-20] MEDS ORDERED: DAPTOMYCIN CONSULT ACTIVE PRN (10:06)
[2019-02-20] MEDS ORDERED: CEFEPIME CONSULT ACTIVE PRN (10:06)
[2019-02-20] MEDS: CEFEPIME 2,000 MG in SYRINGE 7.5 ML IV SCH ×2 (11:01→17:55)
--- NOTE | 2019-02-20 12:53 | Electrocardiogram Report ---
Test Reason : Blood Pressure : / mmHG Vent. Rate : 091 BPM Atrial Rate : 091 BPM P-R Int : 150 ms QRS Dur : 070 ms QT Int : 374 ms P-R-T Axes : 002 030 026 degrees QTc Int : 460 ms Normal sinus rhythm Normal ECG When compared with ECG of 20-DEC-2018 13:14, No significant change was found Confirmed by Andres Springer ([id number]) on 02/20/2019 12:53:10 PM Referred By: PUJA DUNCAN Confirmed By:Andres Springer
[2019-02-20] MEDS: ACETAMINOPHEN 325 MG TAB PO PRN ×2 (15:04→23:28)
[2019-02-21] MEDS ORDERED: LACTATED RINGER'S 1,000 ML IV ONE (00:35)
[2019-02-21] MEDS: CEFEPIME 2,000 MG in SYRINGE 7.5 ML IV SCH ×3 (01:38→17:57)
[2019-02-21] MEDS: DAPTOmycin 450 MG in SYRINGE 0 ML IV SCH (03:49)
[2019-02-21 05:52] LABS: Hematocrit (blood only) 19.5 % (37-47); Hemoglobin 6.5 g/dL (12.0-16.0); Mean Corpuscular Hemoglobin 29.5 pg (25-34); Mean Corpuscular Hgb Conc 33.3 g/dL (32-36); Mean Corpuscular Volume 88.6 fL (80-100); Mean Platelet Volume 9.4 fL (7.4-10.4); Nucleated RBC # (auto) 0.02 K/uL (0-0); Nucleated RBC % (auto) 0.9 %; Platelet Count 98 K/uL (130-400); RDW Standard Deviation 54.1 fL (36.4-46.3); White Blood Count 2.09 K/uL (4.8-10.8)
[2019-02-21] MEDS ORDERED: SODIUM CHLORIDE 0.9% 250 ML IV PRN ×2 (05:58→09:05)
[2019-02-21 06:17] LABS: Dohle Bodies 1+; Eosinophils # (auto) 0.03 K/uL (0-0.5); Eosinophils % (auto) 1.4 %; Giant Platelets 1+; Immature Granulocytes # (auto) 0.01 K/uL (0.00-0.02); Immature Granulocytes % (auto) 0.5 %; Lymphocytes # (auto) 0.33 K/uL (1.2-3.4); Lymphocytes % (auto) 15.8 %; Monocytes # (auto) 0.38 K/uL (0.11-0.59); Monocytes % (auto) 18.2 %; Neutrophils # (auto) 1.34 K/uL (1.4-6.5); Neutrophils % (auto) 64.1 %
[2019-02-21 06:29] LABS: BUN Creatinine Ratio 14.6 (10-20); Calcium 8.7 mg/dl (8.5-10.1); Creatinine Clr Calc Pharmacy 106.4 ml/min; Est GFR (African American) 117.9; Est GFR (Non-African American) 101.7; Magnesium 2.1 mg/dl (1.8-2.4); Potassium 3.9 mmol/L (3.5-5.1)
[2019-02-21] MEDS: ACYCLOVIR 400 MG TAB PO SCH ×2 (07:48→20:44)
[2019-02-21] MEDS: FLUCONAZOLE 100 MG TAB PO SCH (07:48)
[2019-02-21] MEDS: DOCUSATE SODIUM 100 MG CAP PO SCH ×2 (07:48→20:44)
--- NOTE | 2019-02-21 09:45 | Hospitalist Progress Note ---
Date of Service February 20, 2019 I discussed care with patient's oncologist, Dr. Edna Baez, at [facility]. She agreed with broad-spectrum antibiotics (patient is on cefepime and daptomycin), recommended to only hold Levaquin from her home antibiotic regimen. She also stressed to make sure that we use irradiated blood products if patient needs a transfusion. Her goal for hemoglobin is above 7 and goal for platelets above 10. She also said that she would prefer transfer to [place] if patient continues to be febrile. Patient is lying in bed, in no acute distress, says that she is little tired. Lungs are clear to auscultation bilaterally, heart sounds are regular, no murmurs noted, abdomen is soft nontender nondistended. There is no lower extremity edema, there is no rash or lesion on her skin, she moves all 4 extremities spontaneously. She is only mildly tachycardic. Labs significant for hemoglobin of 7.6, white blood cell count 1.95, ANC 0.02. Results & Data Vital Signs (Past 12 Hours) Vital Signs Temp Pulse Resp BP Pulse Ox 02/21/19 07:24 36.9 C 82 20 100/66 100 02/21/19 00:10 38.2 C H 02/20/19 23:39 39.4 C H 98 H 20 112/69 95
--- NOTE | 2019-02-21 10:51 | Hospitalist Progress Note ---
Date of Service February 21, 2019 Assessment & Plan (1) Severe sepsis: Neutropenic fever SIRS plus lactic acid elevation on admission Immunocompromised patient Chronic pancytopenia Now Hgb 6.5 -we will transfuse today, 1 unit of packed red blood cells, consent obtained, must use irradiated blood products ALL (diagnosed in December 2018) ongoing chemotherapy (weekly, the next 1 planned for February 22) status post Ommaya reservoir placement on antibiotic/antiviral/antifungal prophylaxis -Follows with oncologist, Dr. Baez, in [facility] -Dr. Baez, was contacted yesterday by be, she is aware of the patient and and so is oncologist installation superintendent in [facility], Dr. Wall -Continue to follow-up white blood cell count/ANC closely, currently improving -Also continue to monitor H&H Persistent fever Pt had a fever 38.3C at 3 PM yesterday and then at night 39.4C, then 30 min later 38.2C. Called [facility] and talked to Dr. Wall ( oncologist installation superintendent) for possible transfer (as Dr. Baez said yesterday to consider transfer if pt continues to have a fever while on antibiotic treatment). At this point Dr. Wall feels comfortable if pt stays here and treatment plan was discussed with him. He is also ok to accept the pt if she would like to be transferred (confirmed bed availability). Patient does not wish to be transferred at this time and prefers to stay here for now. Source unclear ? Complicated UTI as source Strickland cultured - pending - started on Daptomycin, cefepime, will cont. for broad antibiotic coverage -We will also continue Bactrim, fluconazole and acyclovir, will hold Levaquin, this was discussed with patient's oncologist -IVF, follow lactic acid DVT prophylaxis. SCDs RE thrombocytopenia Full code Subjective Patient is currently lying in bed, in no acute distress, at the bedside. Says that she feels tired, but overall well. Denies any abdominal pain, nausea or vomiting. Also denies any chest pain, shortness of breath. notes that she had fever however now feels well. Pt had a fever 38.3C at 3 PM yesterday and then at night 39.4C, then 30 min later 38.2C. Called [facility] and talked to Dr. Wall (oncologist installation superintendent) for possible transfer (as Dr. Baez said yesterday to consider transfer if pt continues to have a fever while on antibiotic treatment). At this point Dr. Wall feels comfortable if pt stays here and treatment plan was discussed with him. He is also ok to accept the pt if she would like to be transferred (confirmed bed availability). Patient does not wish to be transferred at this time and prefers to stay here for now. Hemoglobin 6.5, will transfuse, consent obtained, must use irradiated blood product Review of Systems Review of Systems: All systems reviewed & are unremarkable except as noted in HPI & below Constitutional: no fever (but had fever at night) and no chills Respiratory: no cough, no dyspnea and no pain on inspiration Cardiovascular: no chest pain, no palpitations and no edema Gastrointestinal: no abdominal pain, no nausea and no vomiting Physical Exam Physical Exam: GENERAL: Female patient lying in bed, in no acute distress HEENT: ommaya placement on the right front side, well healed, pale palpebral conjunctivae, EOMI, PERRL, most mucous membrane NECK : Supple, no tenderness CHEST : Clear to auscultation bilaterally, no wheezing or rhonchi or crackles HEART : RRR, no obvious murmurs ABDOMEN: Positive bowel sounds, soft, nontender, nondistended, no guarding EXTREMITIES : No LE swelling/tenderness, moves all 4 extremities spontaneously and without difficulty SKIN: Pallor , warm NEUROLOGIC : Alert and oriented x3, no facial asymmetry, answers questions appropriately, speech fluent, moves forcibly spontaneously Results & Data Vital Signs (Past 12 Hours) Vital Signs Temp Pulse Resp BP Pulse Ox 02/21/19 07:24 36.9 C 82 20 100/66 100 02/21/19 00:10 38.2 C H 02/20/19 23:39 39.4 C H 98 H 20 112/69 95 Laboratory Results 02/21/19 02/21/19 02/21/19 Range/Units 05:32 05:32 05:32 WBC 2.09 L (4.8-10.8) K/uL RBC 2.20 L (4.2-5.4) M/uL Hgb 6.5 L* (12.0-16.0) g/dL Hct 19.5 L* (37-47) % MCV 88.6 (80-100) fL MCH 29.5 (25-34) pg MCHC 33.3 (32-36) g/dL RDW Std Deviation 54.1 H (36.4-46.3) fL RDW Coeff of Julissa 17.0 H (11.5-14.5) % Plt Count 98 L (130-400) K/uL MPV 9.4 (7.4-10.4) fL Immature Gran % (Auto) 0.5 % Neut % (Auto) 64.1 % Lymph % (Auto) 15.8 % Logan % (Auto) 18.2 % Eos % (Auto) 1.4 % Baso % (Auto) 0.0 % Immature Gran # (Auto) 0.01 (0.00-0.02) K/uL Neut # (Auto) 1.34 L (1.4-6.5) K/uL Lymph # (Auto) 0.33 L (1.2-3.4) K/uL Logan # (Auto) 0.38 (0.11-0.59) K/uL Eos # (Auto) 0.03 (0-0.5) K/uL Baso # (Auto) 0.00 (0-0.2) K/uL Absolute Nucleated RBC 0.02 H (0-0) K/uL Nucleated RBC % (auto) 0.9 % Dohle Bodies 1+ Giant Platelets 1+ Sodium 140 (136-145) mmol/L Potassium 3.9 (3.5-5.1) mmol/L Chloride 110 H (98-107) mmol/L Carbon Dioxide 28 (21-32) mmol/L Anion Gap 2.0 L (3-11) BUN 8 D (7-18) mg/dl Creatinine 0.52 L (0.6-1.2) mg/dl Est Cr Clr Drug Dosing 106.4 ml/min Est GFR ( Amer) 117.9 Est GFR (Non-Af Amer) 101.7 BUN/Creatinine Ratio 14.6 (10-20) Glucose 103 H (70-99) mg/dl Calcium 8.7 (8.5-10.1) mg/dl Magnesium 2.1 (1.8-2.4) mg/dl Blood Type Blood Type Recheck B Negative Antibody Screen Crossmatch 02/20/19 Range/Units 04:31 WBC (4.8-10.8) K/uL RBC (4.2-5.4) M/uL Hgb (12.0-16.0) g/dL Hct (37-47) % MCV (80-100) fL MCH (25-34) pg MCHC (32-36) g/dL RDW Std Deviation (36.4-46.3) fL RDW Coeff of Julissa (11.5-14.5) % Plt Count (130-400) K/uL MPV (7.4-10.4) fL Immature Gran % (Auto) % Neut % (Auto) % Lymph % (Auto) % Logan % (Auto) % Eos % (Auto) % Baso % (Auto) % Immature Gran # (Auto) (0.00-0.02) K/uL Neut # (Auto) (1.4-6.5) K/uL Lymph # (Auto) (1.2-3.4) K/uL Logan # (Auto) (0.11-0.59) K/uL Eos # (Auto) (0-0.5) K/uL Baso # (Auto) (0-0.2) K/uL Absolute Nucleated RBC (0-0) K/uL Nucleated RBC % (auto) % Dohle Bodies Giant Platelets Sodium (136-145) mmol/L Potassium (3.5-5.1) mmol/L Chloride (98-107) mmol/L Carbon Dioxide (21-32) mmol/L Anion Gap (3-11) BUN (7-18) mg/dl Creatinine (0.6-1.2) mg/dl Est Cr Clr Drug Dosing ml/min Est GFR ( Amer) Est GFR (Non-Af Amer) BUN/Creatinine Ratio (10-20) Glucose (70-99) mg/dl Calcium (8.5-10.1) mg/dl Magnesium (1.8-2.4) mg/dl Blood Type B Negative Blood Type Recheck Antibody Screen NEGATIVE Crossmatch See Detail Medications Administered Current Inpatient Medications Acetaminophen (Tylenol) 650 mg PO Q4H PRN PRN Reason: pain/fever Stop: 03/22/19 09:30 Last Admin: 02/20/19 23:28 Dose: 650 mg Documented by: Acyclovir (Zovirax) 400 mg PO BID [facility] Stop: 03/22/19 09:30 Last Admin: 02/21/19 07:48 Dose: 400 mg Documented by: Docusate Sodium (Colace) 100 mg PO BID [facility] Stop: 03/22/19 09:30 Last Admin: 02/21/19 07:48 Dose: 100 mg Documented by: Fluconazole (Diflucan) 400 mg PO DAILY [facility] Stop: 03/22/19 09:30 Last Admin: 02/21/19 07:48 Dose: 400 mg Documented by: Promethazine HCl 12.5 mg/ (Sodium Chloride) 50.5 mls @ 202 mls/hr IV Q6H PRN PRN Reason: Nausea And Vomiting Stop: 03/22/19 09:30 Lorazepam (Ativan) 0.25 mg in 0.5 mls @ 0.5 mls/min IV Q4H PRN PRN Reason: Anxiety Stop: 03/22/19 09:30 Cefepime HCl 2,000 mg/ Syringe 20 mls @ 5 mls/min IV Q8H [facility]; Protocol Stop: 02/22/19 10:14 Last Admin: 02/21/19 10:38 Dose: 5 mls/min Documented by: Daptomycin 450 mg/ Syringe 9 mls @ 0 mls/min IV Q24H [facility]; Protocol Stop: 02/23/19 03:59 Last Admin: 02/21/19 03:49 Dose: 4.5 mls/min Documented by: Sodium Chloride (Nss) 250 mls @ 15 mls/hr IV .[id number] PRN PRN Reason: For Transfusion Stop: 02/21/19 15:58 Sodium Chloride (Nss) 250 mls @ 15 mls/hr IV .[id number] PRN PRN Reason: For Transfusion Stop: 02/21/19 19:07 Ibuprofen (Advil) 200 mg PO Q6H PRN PRN Reason: Mild Pain Stop: 03/22/19 09:30 Last Admin: 02/21/19 00:13 Dose: 200 mg Documented by: Miscellaneous Information (Consult) 1 ea N/A UD PRN PRN Reason: Consult Stop: 03/22/19 10:05 Miscellaneous Information (Cefepime Consult Active) 1 ea N/A UD PRN PRN Reason: Consult Stop: 03/22/19 10:05 Trimethoprim/Sulfamethoxazole (Septra 400/80mg Tab) 1 tab PO DAILY [facility] Stop: 03/23/19 09:44
[2019-02-21] MEDS: SULFA/TRIMETH 400/80MG TAB PO SCH (11:31)
[2019-02-21 16:54] LABS: Hematocrit (blood only) 23.7 % (37-47)
[2019-02-21] MEDS: ACETAMINOPHEN 325 MG TAB PO PRN (23:17)
[2019-02-22] MEDS: CEFEPIME 2,000 MG in SYRINGE 7.5 ML IV SCH ×3 (01:48→18:37)
[2019-02-22] MEDS: DAPTOmycin 450 MG in SYRINGE 0 ML IV SCH (03:51)
[2019-02-22] MEDS: ACETAMINOPHEN 325 MG TAB PO PRN (04:08)
[2019-02-22 05:55] LABS: Basophils # (auto) 0.01 K/uL (0-0.2); Basophils % (auto) 0.2 %; Eosinophils # (auto) 0.08 K/uL (0-0.5); Eosinophils % (auto) 1.6 %; Hemoglobin 8.3 g/dL (12.0-16.0); Immature Granulocytes # (auto) 0.03 K/uL (0.00-0.02); Immature Granulocytes % (auto) 0.6 %; Lymphocytes # (auto) 0.42 K/uL (1.2-3.4); Lymphocytes % (auto) 8.5 %; Mean Corpuscular Hemoglobin 30.5 pg (25-34); Mean Corpuscular Hgb Conc 34.6 g/dL (32-36); Mean Corpuscular Volume 88.2 fL (80-100); Mean Platelet Volume 9.2 fL (7.4-10.4); Monocytes # (auto) 0.65 K/uL (0.11-0.59); Monocytes % (auto) 13.2 %; Neutrophils # (auto) 3.75 K/uL (1.4-6.5); Neutrophils % (auto) 75.9 %; Nucleated RBC # (auto) 0.03 K/uL (0-0); Nucleated RBC % (auto) 0.6 %; Platelet Count 132 K/uL (130-400); RDW Coefficient of Variation 16.3 % (11.5-14.5); RDW Standard Deviation 50.9 fL (36.4-46.3); Red Blood Count 2.72 M/uL (4.2-5.4); White Blood Count 4.94 K/uL (4.8-10.8)
[2019-02-22 06:36] LABS: BUN Creatinine Ratio 16.9 (10-20); Creatinine Clr Calc Pharmacy 109.2 ml/min; Est GFR (African American) 117.1; Potassium 3.6 mmol/L (3.5-5.1)
--- NOTE | 2019-02-22 07:17 | Hospitalist Progress Note ---
Date of Service February 22, 2019 Assessment & Plan (1) Severe sepsis: Neutropenic fever SIRS plus lactic acid elevation on admission Immunocompromised patient Pancytopenia secondary to ALL and chemotherapy Hgb 6.5 - yesterday (02/21), received 1 unit of packed red blood cells, consent obtained, must use irradiated blood products ALL (diagnosed in December 2018) ongoing chemotherapy (weekly, the next 1 planned for February 22) status post Ommaya reservoir placement on antibiotic/antiviral/antifungal prophylaxis -Follows with oncologist, Dr. Baez, in [facility] -Dr. Baez, was contacted by me, she is aware of the patient and and so is oncologist pattern repair person in [facility], Dr. Wall -Continue to follow-up white blood cell count/ANC closely, currently improving -Current WBC 4.9, ANC today 3.75 -patient no longer neutropenic -ANC 0.85 on admission, 1.34 yesterday (02/21) -Current Hgb 8.5, continue to monitor H&H -Current platelet count 132 (improved from 98 yesterday), continue to monitor Persistent fever Pt had a fever 38.3C at 3 PM (02/20) and then at midnight 39.4C (02/20- 02/21). Called [facility] (02/21) and talked to Dr. Wall (oncologist pattern repair person) for possible transfer (as Dr. Baez said before, to consider transfer if pt continues to have a fever while on antibiotic treatment). Dr. Wall felt comfortable if pt stays here and treatment plan was discussed with him. He is also ok to accept the pt if she would like to be transferred (confirmed bed availability). Patient does not wish to be transferred at this time and prefers to stay here for now. Had fever again, 38.1C (02/22 at 4 AM), ID consulted, will continue to monitor closely. Source unclear ? Complicated UTI as source Strickland cultured - NGTD - started on Daptomycin, cefepime, will cont. for broad antibiotic coverage -We will also continue Bactrim, fluconazole and acyclovir, will hold Levaquin, this was discussed with patient's oncologist -IVF, follow lactic acid -ID consulted for further recommendations DVT prophylaxis. SCDs RE thrombocytopenia Full code Subjective Patient in bed, in no acute distress. She did have another fever 38.1 Celsius. Currently feels tired. Denies any fevers, chills, chest pain, shortness of breath, abdominal pain or nausea or vomiting. ID consulted Review of Systems Review of Systems: All systems reviewed & are unremarkable except as noted in HPI & below Constitutional: + fatigue; no fever and no chills Respiratory: no cough, no dyspnea and no pain on inspiration Cardiovascular: no chest pain, no dyspnea on exertion, no palpitations and no edema Gastrointestinal: no abdominal pain, no nausea and no vomiting Physical Exam Physical Exam: GENERAL: Female patient lying in bed, in no acute distress HEENT: ommaya placement on the right front side, well healed, pale palpebral conjunctivae, EOMI, PERRL, most mucous membrane NECK : Supple, no tenderness CHEST : Clear to auscultation bilaterally, no wheezing or rhonchi or crackles HEART : RRR, no obvious murmurs ABDOMEN: Positive bowel sounds, soft, nontender, nondistended, no guarding EXTREMITIES : No LE swelling/tenderness, moves all 4 extremities spontaneously and without difficulty SKIN: Pallor , warm NEUROLOGIC : Alert and oriented x3, no facial asymmetry, answers questions appropriately, speech fluent, moves forcibly spontaneously Results & Data Vital Signs (Past 12 Hours) Vital Signs Temp Pulse Resp BP Pulse Ox 02/22/19 03:57 38.1 C H 87 20 108/63 97 02/21/19 23:55 37.3 C 02/21/19 22:50 37.9 C H 89 18 96/58 L 94 Laboratory Results 02/22/19 02/22/19 02/21/19 Range/Units 05:41 05:41 16:25 WBC 4.94 (4.8-10.8) K/uL RBC 2.72 L (4.2-5.4) M/uL Hgb 8.3 L 8.0 L (12.0-16.0) g/dL Hct 24.0 L 23.7 L (37-47) % MCV 88.2 (80-100) fL MCH 30.5 (25-34) pg MCHC 34.6 (32-36) g/dL RDW Std Deviation 50.9 H (36.4-46.3) fL RDW Coeff of Julissa 16.3 H (11.5-14.5) % Plt Count 132 (130-400) K/uL MPV 9.2 (7.4-10.4) fL Immature Gran % (Auto) 0.6 % Neut % (Auto) 75.9 % Lymph % (Auto) 8.5 % Hyde % (Auto) 13.2 % Eos % (Auto) 1.6 % Baso % (Auto) 0.2 % Immature Gran # (Auto) 0.03 H (0.00-0.02) K/uL Neut # (Auto) 3.75 (1.4-6.5) K/uL Lymph # (Auto) 0.42 L (1.2-3.4) K/uL Hyde # (Auto) 0.65 H (0.11-0.59) K/uL Eos # (Auto) 0.08 (0-0.5) K/uL Baso # (Auto) 0.01 (0-0.2) K/uL Absolute Nucleated RBC 0.03 H (0-0) K/uL Nucleated RBC % (auto) 0.6 % Sodium 139 (136-145) mmol/L Potassium 3.6 (3.5-5.1) mmol/L Chloride 106 (98-107) mmol/L Carbon Dioxide 26 (21-32) mmol/L Anion Gap 7.0 (3-11) BUN 9 (7-18) mg/dl Creatinine 0.53 L (0.6-1.2) mg/dl Est Cr Clr Drug Dosing 109.2 ml/min Est GFR ( Amer) 117.1 Est GFR (Non-Af Amer) 101.0 BUN/Creatinine Ratio 16.9 (10-20) Glucose 111 H (70-99) mg/dl Calcium 9.0 (8.5-10.1) mg/dl Magnesium 2.0 (1.8-2.4) mg/dl Blood Type Blood Type Recheck Antibody Screen Crossmatch 02/21/19 02/20/19 Range/Units 05:32 04:31 WBC (4.8-10.8) K/uL RBC (4.2-5.4) M/uL Hgb (12.0-16.0) g/dL Hct (37-47) % MCV (80-100) fL MCH (25-34) pg MCHC (32-36) g/dL RDW Std Deviation (36.4-46.3) fL RDW Coeff of Julissa (11.5-14.5) % Plt Count (130-400) K/uL MPV (7.4-10.4) fL Immature Gran % (Auto) % Neut % (Auto) % Lymph % (Auto) % Hyde % (Auto) % Eos % (Auto) % Baso % (Auto) % Immature Gran # (Auto) (0.00-0.02) K/uL Neut # (Auto) (1.4-6.5) K/uL Lymph # (Auto) (1.2-3.4) K/uL Hyde # (Auto) (0.11-0.59) K/uL Eos # (Auto) (0-0.5) K/uL Baso # (Auto) (0-0.2) K/uL Absolute Nucleated RBC (0-0) K/uL Nucleated RBC % (auto) % Sodium (136-145) mmol/L Potassium (3.5-5.1) mmol/L Chloride (98-107) mmol/L Carbon Dioxide (21-32) mmol/L Anion Gap (3-11) BUN (7-18) mg/dl Creatinine (0.6-1.2) mg/dl Est Cr Clr Drug Dosing ml/min Est GFR ( Amer) Est GFR (Non-Af Amer) BUN/Creatinine Ratio (10-20) Glucose (70-99) mg/dl Calcium (8.5-10.1) mg/dl Magnesium (1.8-2.4) mg/dl Blood Type B Negative Blood Type Recheck B Negative Antibody Screen NEGATIVE Crossmatch See Detail Medications Administered Current Inpatient Medications Acetaminophen (Tylenol) 650 mg PO Q4H PRN PRN Reason: pain/fever Stop: 03/22/19 09:30 Last Admin: 02/22/19 04:08 Dose: 650 mg Documented by: Acyclovir (Zovirax) 400 mg PO BID [facility] Stop: 03/22/19 09:30 Last Admin: 02/21/19 20:44 Dose: 400 mg Documented by: Docusate Sodium (Colace) 100 mg PO BID [facility] Stop: 03/22/19 09:30 Last Admin: 02/21/19 20:44 Dose: 100 mg Documented by: Fluconazole (Diflucan) 400 mg PO DAILY [facility] Stop: 03/22/19 09:30 Last Admin: 02/21/19 07:48 Dose: 400 mg Documented by: Promethazine HCl 12.5 mg/ (Sodium Chloride) 50.5 mls @ 202 mls/hr IV Q6H PRN PRN Reason: Nausea And Vomiting Stop: 03/22/19 09:30 Lorazepam (Ativan) 0.25 mg in 0.5 mls @ 0.5 mls/min IV Q4H PRN PRN Reason: Anxiety Stop: 03/22/19 09:30 Cefepime HCl 2,000 mg/ Syringe 20 mls @ 5 mls/min IV Q8H [facility]; Protocol Stop: 03/02/19 10:14 Last Admin: 02/22/19 01:48 Dose: 5 mls/min Documented by: Daptomycin 450 mg/ Syringe 9 mls @ 0 mls/min IV Q24H [facility]; Protocol Stop: 03/02/19 03:59 Last Admin: 02/22/19 03:51 Dose: 4.5 mls/min Documented by: Ibuprofen (Advil) 200 mg PO Q6H PRN PRN Reason: Mild Pain Stop: 03/22/19 09:30 Last Admin: 02/21/19 00:13 Dose: 200 mg Documented by: Miscellaneous Information (Consult) 1 ea N/A UD PRN PRN Reason: Consult Stop: 03/22/19 10:05 Miscellaneous Information (Cefepime Consult Active) 1 ea N/A UD PRN PRN Reason: Consult Stop: 03/22/19 10:05 Trimethoprim/Sulfamethoxazole (Septra 400/80mg Tab) 1 tab PO DAILY [facility] Stop: 03/23/19 09:44 Last Admin: 02/21/19 11:31 Dose: 1 tab Documented by:
[2019-02-22] MEDS: SULFA/TRIMETH 400/80MG TAB PO SCH (08:17)
[2019-02-22] MEDS: ACYCLOVIR 400 MG TAB PO SCH ×2 (08:17→20:47)
[2019-02-22] MEDS: DOCUSATE SODIUM 100 MG CAP PO SCH ×2 (08:17→20:48)
[2019-02-22] MEDS: FLUCONAZOLE 100 MG TAB PO SCH (08:18)
--- NOTE | 2019-02-22 10:32 | Infectious Disease Consult ---
Date of Consultation February 22, 2019 Assessment & Plan (1) Neutropenic fever: no clear infection found. fever improving as neutropenia improves. If she continues to improve and cultures remain negative, would suggest transition to po augmentin x 7 days. History of Present Illness Attending Physician: Ray Calixto MD pt admitted with sudden onset of fever. recent diagnosis of ALL on chemo for this. ANC improved to 3750 today. had tmax 02/20 39.2, 02/21 38.2, today 38.1/ UA negative. blood cultures negative, cxr normal. feeling much better today. no f/c currenlty, no sob, cough, cp, no abd pain, no n/v/d. no gu symptoms. on cefepime and dapto and tolerating well. flue swab negative. Allergies Allergy/AdvReac Type Severity Reaction Status Date / Time nickel Allergy Rash Verified 02/20/19 07:53 Home Medications Home Medications Medication Instructions Recorded Confirmed Type cholecalciferol (vitamin D3) 2,000 unit PO DAILY 12/20/18 02/20/19 History [Vitamin D3] docusate sodium [Colace] 100 mg PO BID 12/20/18 02/20/19 History acyclovir 400 mg PO BID 02/20/19 02/20/19 History cytarabine (PF) 140 mg SUBCUT DIRECTED 02/20/19 02/20/19 History fluconazole 400 mg PO DAILY 02/20/19 02/20/19 History glucosamine sulfate [Glucosamine] 500 mg PO DAILY 02/20/19 02/20/19 History levofloxacin 500 mg PO DAILY 02/20/19 02/20/19 History lidocaine-prilocaine 1 ea TOPICAL DIRECTED 02/20/19 02/20/19 History mercaptopurine 50 mg PO DAILY 02/20/19 02/20/19 History mupirocin 1 applic TOPICAL BID 02/20/19 02/20/19 History ondansetron HCl [Zofran] 8 mg PO TID PRN 02/20/19 02/20/19 History sulfamethoxazole-trimethoprim 1 tab PO DAILY 02/20/19 02/20/19 History Patient History Medical History Leukemia Sciatica (Chronic) Family History Other No significant family history Social History Preferred Language: Algerian Communication Ability: Effective Molecular Biology Director Required: No Beliefs That Will Affect Care: None Current Living Situation: Spouse and Family Current Living Situation Comment: daughter and family with patient now Other Information That Helps Us Care for You: No Feels Safe at Home: Yes Safety Concerns: Feels Safe At This Time Smoking Status: Never smoker Do You Dip or Chew Tobacco: No ; Second Hand Exposure: No ; Tobacco Cessation Education Requested by Patient: No Hx Alcohol Use: No Hx Substance Use: No Review of Systems Review of Systems: All systems reviewed & are unremarkable except as noted in HPI & below Physical Exam Constitutional: WD/WN, vitals as above Eyes: PERRL, conjunctivae normal, anicteric sclerae ENMT: external ear and nose normal, oropharynx normal Neck: normal visual inspection Respiratory: normal respiratory effort, lungs clear to auscultation Cardiovascular: RRR, no murmur, no edema Gastrointestinal (Abdomen): normal bowel sounds, soft, nontender, no hepatosplenomegaly Musculoskeletal: no cyanosis or clubbing, extremities motor strength 5/5 Skin: no rashes, warm and dry Psychiatric: A+Ox3, euthymic affect Results & Data Vital Signs (Past 12 Hours) Vital Signs Temp Pulse Resp BP BP Pulse Ox 02/22/19 07:26 36.9 C 81 16 108/70 95 02/22/19 03:57 38.1 C H 87 20 108/63 97 02/21/19 23:55 37.3 C 02/21/19 22:50 37.9 C H 89 18 96/58 L 94 Laboratory Results Microbiology 02/20/19 04:00 Urine,Clean Catch Urine Culture - Final Three types of organisms present, all low counts probable skin alexander. No further identifications or sensitivities to follow. 02/20/19 02:19 Blood Aerobic Blood Culture - Preliminary No growth in Aerobic bottle after 48 hours. 02/20/19 02:19 Blood Anaerobic Blood Culture - Preliminary No growth in Anaerobic bottle after 48 hours. 02/20/19 02:01 Blood Aerobic Blood Culture - Preliminary No growth in Aerobic bottle after 48 hours. 02/20/19 02:01 Blood Anaerobic Blood Culture - Preliminary No growth in Anaerobic bottle after 48 hours. PG Care Time/CCT Total # of Minutes Spent Total Time Spent with Patient: Total time spent is greater than 50% in coordination of care (as documented) at patient's floor/unit and/or counseling patient:
[2019-02-22] MEDS: HEPARIN 100 UNIT/ML 5ML FLUSH FLUSH PRN (20:48)
[2019-02-23] MEDS: ACETAMINOPHEN 325 MG TAB PO PRN (00:13)
[2019-02-23] MEDS: CEFEPIME 2,000 MG in SYRINGE 7.5 ML IV SCH ×3 (01:44→17:23)
[2019-02-23] MEDS: HEPARIN 100 UNIT/ML 5ML FLUSH FLUSH PRN ×4 (01:45→17:23)
[2019-02-23] MEDS: DAPTOmycin 450 MG in SYRINGE 0 ML IV SCH (04:01)
[2019-02-23 06:10] LABS: Nucleated RBC # (auto) 0.06 K/uL (0-0); Nucleated RBC % (auto) 1.5 %
[2019-02-23 06:13] LABS: Eosinophils # (auto) 0.09 K/uL (0-0.5); Eosinophils % (auto) 2.5 %; Hematocrit (blood only) 25.9 % (37-47); Hemoglobin 8.4 g/dL (12.0-16.0); Immature Granulocytes # (auto) 0.01 K/uL (0.00-0.02); Immature Granulocytes % (auto) 0.3 %; Lymphocytes % (auto) 16.5 %; Mean Corpuscular Hemoglobin 29.8 pg (25-34); Mean Corpuscular Hgb Conc 32.4 g/dL (32-36); Mean Corpuscular Volume 91.8 fL (80-100); Mean Platelet Volume 9.2 fL (7.4-10.4); Monocytes # (auto) 0.61 K/uL (0.11-0.59); Monocytes % (auto) 16.8 %; Neutrophils # (auto) 2.32 K/uL (1.4-6.5); Neutrophils % (auto) 63.9 %; Platelet Count 205 K/uL (130-400); RDW Coefficient of Variation 17.5 % (11.5-14.5); RDW Standard Deviation 53.4 fL (36.4-46.3); Red Blood Count 2.82 M/uL (4.2-5.4); White Blood Count 3.63 K/uL (4.8-10.8)
[2019-02-23 06:37] LABS: Calcium 9.2 mg/dl (8.5-10.1); Creatinine Clr Calc Pharmacy 105.2 ml/min; Est GFR (African American) 115.7; Est GFR (Non-African American) 99.8; Potassium 3.7 mmol/L (3.5-5.1)
[2019-02-23] MEDS: SULFA/TRIMETH 400/80MG TAB PO SCH (08:54)
[2019-02-23] MEDS: FLUCONAZOLE 100 MG TAB PO SCH (08:54)
[2019-02-23] MEDS: DOCUSATE SODIUM 100 MG CAP PO SCH ×2 (08:54→20:20)
[2019-02-23] MEDS: ACYCLOVIR 400 MG TAB PO SCH ×2 (08:54→20:20)
--- NOTE | 2019-02-23 10:33 | Hospitalist Progress Note ---
Date of Service February 23, 2019 Assessment & Plan (1) Neutropenic fever: SIRS plus lactic acid elevation on admission, sepsis suspected however no clear source of infection identified - pt was started on daptomycin and cefepime Immunocompromised patient Pancytopenia secondary to ALL and chemotherapy Hgb 6.5 - (02/21), received 1 unit of packed red blood cells, consent obtained, must use irradiated blood products ALL (diagnosed in December 2018) ongoing chemotherapy (weekly, the next 1 planned for February 22) status post Ommaya reservoir placement on antibiotic/antiviral/antifungal prophylaxis -Follows with oncologist, Dr. Baez, in [facility] -Dr. Baez, was contacted by me, she is aware of the patient and and so is oncologist customer operations intern in [facility], Dr. Wall -Continue to follow-up white blood cell count/ANC closely, currently improving -Current WBC 3.63, ANC today 2.32 -patient no longer neutropenic (not neutropenic since 02/22) -ANC 0.85 on admission, 1.34 (02/21) -Current Hgb 8.4 - stable, continue to monitor H&H -Current platelet count 205 - no longer thrombocytopenic, continue to monitor Persistent fever Pt had a fever 38.3C at 3 PM (02/20) and then at midnight 39.4C (02/20- 02/21). Called [facility] (02/21) and talked to Dr. Wall (oncologist customer operations intern) for possible transfer (as Dr. Baez said before, to consider transf er if pt continues to have a fever while on antibiotic treatment). Dr. Wall felt comfortable if pt stays here and treatment plan was discussed with him. He is also ok to accept the pt if she would like to be transferred (confirmed bed availability). Patient does not wish to be transferred at this time and prefers to stay here for now. Had fever again, 38.1C (02/22 at 4 AM), ID consulted, will continue to monitor closely. Now afebrile, for over 24 hrs. Source unclear Strickland cultured - NGTD - started on Daptomycin, cefepime, cont. for broad antibiotic coverage, per ID recs, will switch to PO Augmentin if pt continues to improve -We will also continue Bactrim, fluconazole and acyclovir, will hold Levaquin, this was discussed with patient's oncologist -IVF, follow lactic acid (2.3 on admission, then on repeat down to 1.3) -ID consulted for further recommendations -Per ID, if pt continues to improve and cltx remain negative recommend to switch to Augmentin for 7 days DVT prophylaxis. SCDs Code status: Full code Subjective No acute events overnight. Pt is lying in bed, in NAD, at the bedside. Pt denies any fevers, chills, chest pain, shortness of breath, abd. pain, nausea or vomiting. Current WBC 3.63, ANC 2.32, hemoglobin 8.4, platelets 205 Afebrile overnight Review of Systems Review of Systems: All systems reviewed & are unremarkable except as noted in HPI & below Constitutional: + fatigue; no fever and no chills Respiratory: no cough and no dyspnea Cardiovascular: no chest pain and no palpitations Gastrointestinal: no abdominal pain, no nausea and no vomiting Physical Exam Physical Exam: GENERAL: Female patient lying in bed, in no acute distress HEENT: ommaya placement on the right front side, well healed, pale palpebral conjunctivae, EOMI, PERRL, moist mucous membrane NECK : Supple, no tenderness CHEST : Clear to auscultation bilaterally, no wheezing or rhonchi or crackles HEART : RRR, no obvious murmurs ABDOMEN: Positive bowel sounds, soft, nontender, nondistended, no guarding EXTREMITIES : No LE swelling/tenderness, moves all 4 extremities spontaneously and without difficulty SKIN: Pallor , warm NEUROLOGIC : Alert and oriented x3, no facial asymmetry, answers questions appropriately, speech fluent, moves extremities spontaneously Results & Data Vital Signs (Past 12 Hours) Vital Signs Temp Pulse Resp BP BP Pulse Ox 02/23/19 07:15 36.8 C 82 18 90/60 L 93 02/23/19 03:37 36.7 C 79 18 104/67 95 02/23/19 01:13 37.5 C 02/22/19 23:00 37.6 C H 93 H 18 106/58 L 97 Laboratory Results 02/23/19 02/23/19 02/20/19 Range/Units 05:37 05:37 04:31 WBC 3.63 L (4.8-10.8) K/uL RBC 2.82 L (4.2-5.4) M/uL Hgb 8.4 L (12.0-16.0) g/dL Hct 25.9 L (37-47) % MCV 91.8 (80-100) fL MCH 29.8 (25-34) pg MCHC 32.4 (32-36) g/dL RDW Std Deviation 53.4 H (36.4-46.3) fL RDW Coeff of Julissa 17.5 H (11.5-14.5) % Plt Count 205 D (130-400) K/uL MPV 9.2 (7.4-10.4) fL Immature Gran % (Auto) 0.3 % Neut % (Auto) 63.9 % Lymph % (Auto) 16.5 % Mora % (Auto) 16.8 % Eos % (Auto) 2.5 % Baso % (Auto) 0.0 % Immature Gran # (Auto) 0.01 (0.00-0.02) K/uL Neut # (Auto) 2.32 (1.4-6.5) K/uL Lymph # (Auto) 0.60 L (1.2-3.4) K/uL Mora # (Auto) 0.61 H (0.11-0.59) K/uL Eos # (Auto) 0.09 (0-0.5) K/uL Baso # (Auto) 0.00 (0-0.2) K/uL Absolute Nucleated RBC 0.06 H (0-0) K/uL Nucleated RBC % (auto) 1.5 % Sodium 138 (136-145) mmol/L Potassium 3.7 (3.5-5.1) mmol/L Chloride 107 (98-107) mmol/L Carbon Dioxide 27 (21-32) mmol/L Anion Gap 5.0 (3-11) BUN 12 (7-18) mg/dl Creatinine 0.55 L (0.6-1.2) mg/dl Est Cr Clr Drug Dosing 105.2 ml/min Est GFR ( Amer) 115.7 Est GFR (Non-Af Amer) 99.8 BUN/Creatinine Ratio 22.0 H (10-20) Glucose 110 H (70-99) mg/dl Calcium 9.2 (8.5-10.1) mg/dl Crossmatch See Detail Medications Administered Current Inpatient Medications Acetaminophen (Tylenol) 650 mg PO Q4H PRN PRN Reason: pain/fever Stop: 03/22/19 09:30 Last Admin: 02/23/19 00:13 Dose: 650 mg Documented by: Acyclovir (Zovirax) 400 mg PO BID [facility] Stop: 03/22/19 09:30 Last Admin: 02/23/19 08:54 Dose: 400 mg Documented by: Docusate Sodium (Colace) 100 mg PO BID [facility] Stop: 03/22/19 09:30 Last Admin: 02/23/19 08:54 Dose: 100 mg Documented by: Fluconazole (Diflucan) 400 mg PO DAILY [facility] Stop: 03/22/19 09:30 Last Admin: 02/23/19 08:54 Dose: 400 mg Documented by: Heparin Sodium (Porcine) (Heparin Sod 100 Unit/Ml Flush) 5 ml FLUSH PRN PRN PRN Reason: Flush Stop: 03/24/19 20:27 Last Admin: 02/23/19 10:27 Dose: 5 ml Documented by: Promethazine HCl 12.5 mg/ (Sodium Chloride) 50.5 mls @ 202 mls/hr IV Q6H PRN PRN Reason: Nausea And Vomiting Stop: 03/22/19 09:30 Lorazepam (Ativan) 0.25 mg in 0.5 mls @ 0.5 mls/min IV Q4H PRN PRN Reason: Anxiety Stop: 03/22/19 09:30 Cefepime HCl 2,000 mg/ Syringe 20 mls @ 5 mls/min IV Q8H [facility]; Protocol Stop: 03/02/19 10:14 Last Admin: 02/23/19 10:27 Dose: 5 mls/min Documented by: Daptomycin 450 mg/ Syringe 9 mls @ 4.5 mls/min IV Q24H [facility]; Protocol Stop: 03/02/19 03:59 Last Admin: 02/23/19 04:01 Dose: 4.5 mls/min Documented by: Ibuprofen (Advil) 200 mg PO Q6H PRN PRN Reason: Mild Pain Stop: 03/22/19 09:30 Last Admin: 02/21/19 00:13 Dose: 200 mg Documented by: Miscellaneous Information (Consult) 1 ea N/A UD PRN PRN Reason: Consult Stop: 03/22/19 10:05 Miscellaneous Information (Cefepime Consult Active) 1 ea N/A UD PRN PRN Reason: Consult Stop: 03/22/19 10:05 Trimethoprim/Sulfamethoxazole (Septra 400/80mg Tab) 1 tab PO DAILY [facility] Stop: 03/23/19 09:44 Last Admin: 02/23/19 08:54 Dose: 1 tab Documented by:
[2019-02-23] MEDS ORDERED: POTASSIUM CHLORIDE 20 MEQ TABCR PO ONE (11:00)
[2019-02-24] MEDS: CEFEPIME 2,000 MG in SYRINGE 7.5 ML IV SCH (02:53)
[2019-02-24] MEDS: HEPARIN 100 UNIT/ML 5ML FLUSH FLUSH PRN ×3 (02:53→09:44)
[2019-02-24 06:06] LABS: Eosinophils # (auto) 0.06 K/uL (0-0.5); Eosinophils % (auto) 1.6 %; Hematocrit (blood only) 26.8 % (37-47); Hemoglobin 8.9 g/dL (12.0-16.0); Immature Granulocytes # (auto) 0.02 K/uL (0.00-0.02); Immature Granulocytes % (auto) 0.5 %; Lymphocytes # (auto) 0.63 K/uL (1.2-3.4); Mean Corpuscular Hemoglobin 30.3 pg (25-34); Mean Corpuscular Hgb Conc 33.2 g/dL (32-36); Mean Corpuscular Volume 91.2 fL (80-100); Mean Platelet Volume 9.3 fL (7.4-10.4); Monocytes # (auto) 0.78 K/uL (0.11-0.59); Monocytes % (auto) 21.1 %; Neutrophils # (auto) 2.21 K/uL (1.4-6.5); Neutrophils % (auto) 59.8 %; Nucleated RBC # (auto) 0.03 K/uL (0-0); Nucleated RBC % (auto) 0.9 %; Platelet Count 282 K/uL (130-400); RDW Coefficient of Variation 18.4 % (11.5-14.5); RDW Standard Deviation 54.7 fL (36.4-46.3); Red Blood Count 2.94 M/uL (4.2-5.4)
[2019-02-24 06:41] LABS: BUN Creatinine Ratio 21.5 (10-20); Calcium 9.3 mg/dl (8.5-10.1); Creatinine Clr Calc Pharmacy 102.8 ml/min; Est GFR (Non-African American) 99.2
--- NOTE | 2019-02-24 06:58 | Discharge Summary ---
Date of Service February 24, 2019 Admission HPI Per Admitting Provider History obtained from patient, family, and records. Medical history significant for ALL ongoing chemotherapy status post Ommaya reservoir placement on antibiotic/antiviral/antifungal prophylaxis, chronic anemia (baseline hemoglobin 78), chronic thrombocytopenia. 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 [place] [facility] Patient was trying to get sleep last night when she suddenly felt cold. Temperature 101.4 Denies chest pain, S OB, cough, abdominal pain, diarrhea, dysuria. Transient frontal headache symptoms. At the ER, patient received daptomycin and imipenem for possible sepsis. Medical History as above Surgical History : Dental surgery, partial hysterectomy, a port placement, [employer]IPMENT REPAIRER ventricular catheter placement Family History : Multiple myeloma, thalassemia, diabetes, heart disease Personal/Social history : Non-smoker, no EtOH intake, homemaker Admission Exam Per Admitting Provider GENERAL: Slightly uncomfortable, pleasant, no respiratory distress SKIN: Pallor , warm HEENT: Healed incisional scar on right parietal area of the head, partial alopecia, pale palpebral conjunctivae, no ptosis, dry buccal mucosa NECK : Supple, no tenderness CHEST : CTA, no tenderness HEART : RRR, no obvious murmurs ABDOMEN: Soft, nontender EXTREMITIES : No LE swelling/tenderness, no other conspicuous deformities noted NEUROLOGIC : Coherent, no facial asymmetry, no other gross focality Principal Diagnosis Neutropenic fever, neutropenia, pancytopenia, ALL Discharge Exam GENERAL: Female patient lying in bed, in no acute distress HEENT: ommaya placement on the right front side, well healed, pale palpebral conjunctivae, EOMI, PERRL, moist mucous membrane NECK : Supple, no tenderness CHEST : Clear to auscultation bilaterally, no wheezing or rhonchi or crackles HEART : RRR, no obvious murmurs ABDOMEN: Positive bowel sounds, soft, nontender, nondistended, no guarding EXTREMITIES : No LE swelling/tenderness, moves all 4 extremities spontaneously and without difficulty SKIN: warm, dry, pale NEUROLOGIC : Alert and oriented x3, no facial asymmetry, answers questions appropriately, speech fluent, moves extremities spontaneously Discharge Data Allergies Allergy/AdvReac Type Severity Reaction Status Date / Time nickel Allergy Rash Verified 02/20/19 07:53 Consultations 02/20/19 03:40 ED Decision to Admit Stat 02/22/19 07:25 Consult Infectious Diseases Routine Ordered Studies 02/20/19 04:33 CT head/brain wo con Urgent Findings: The paranasal sinuses and mastoid air cells are clear. Transcatheter previously placed within the right frontal lobe region extending to the right lateral ventricle. No acute intracranial abnormality. Minimal findings of s cattered encephalomalacia. No acute intracranial hemorrhage. Impression: Chronic and postoperative change. No acute process. Hospital Course (1) Neutropenic fever: SIRS plus lactic acid elevation on admission, sepsis suspected however no clear source of infection identified Immunocompromised patient Pancytopenia secondary to ALL and chemotherapy Hgb 6.5 - (02/21), received 1 unit of packed red blood cells, consent obtained, must use irradiated blood products ALL (diagnosed in December 2018) ongoing chemotherapy (weekly, the next one was planned for February 22) - status post Ommaya reservoir placement on antibiotic/antiviral/antifungal prophylaxis -Follows with oncologist, Dr. Baez, in [facility] -Dr. Baez, was contacted by me, she is aware of the patient and and so is oncologist j2ee application developer in [facility], Dr. Wall -Continue to follow-up white blood cell count/ANC closely, currently improving -Current WBC 3.70, ANC today 2.21 -patient no longer neutropenic (not neutropenic since 02/22) -ANC 0.85 on admission, 1.34 (on 02/21) -Current Hgb 8.9 - improved, continue to monitor H&H -Current platelet count 282 - no longer thrombocytopenic, continue to monitor Persistent fever Pt had a fever 38.3C at 3 PM (02/20) and then at midnight 39.4C (02/20- 02/21). Called [facility] (02/21) and talked to Dr. Wall (oncologist j2ee application developer) for possible transfer (as Dr. Baez mentioned before, to consider transfer if pt continues to have a fever while on antibiotic treatment). Dr. Wall felt comfortable if pt stays here and treatment plan was discussed with him. He is also willing to accept the pt if she would like to be transferred (confirmed bed availability). Patient does not wish to be transferred at this time and prefers to stay here at [facility] for now. Had fever again, 38.1C (02/22 at 4 AM), ID consulted, will continue to monitor closely. Now afebrile, for over 48 hrs. Source unclear Strickland cultured - NGTD - started on Daptomycin, cefepime,per ID recs, will switch to PO Augmentin as pt continues to clin. improve, plan to d/c home today -We will also continue Bactrim, fluconazole and acyclovir, will hold Levaquin, this was discussed with patient's oncologist -IVF, follow lactic acid (2.3 on admission, then on repeat down to 1.3) -ID consulted for further recommendations -Per ID, if pt continues to improve and cltx remain negative recommend to switch to Augmentin for 7 days Total Time Total Time Spent Total Time Spent (In Minutes): 40 Total Time Includes: Examination of the Patient, Discharge Planning, Medication Reconciliation and Communication With Other Providers Discharge Plan Discharge Items Patient Disposition: Home - Home Health Services Reason For Visit: NEUTROPENIC FEVER Discharge Diagnosis: Neutropenic fever, neutropenia, pancytopenia, ALL Activity: Resume your previous activity Activity Comment: as tolerated, pace yourself, ask for help as needed Non-emergency contact: Primary Care Provider and Oncologist Call non-emergency contact if: you have any medication questions, your symptoms worsen and you have a fever Follow-up/Referrals: Nicolas Cervantes DO [Primary Care Provider] - Diet: Regular Addtl Attending Provider Instructions: Take Augmentin for 7 days, take the first dose this evening February 24, 2019. Continue taking your fluconazole, acyclovir, and Bactrim. Do not take your Levaquin, while on Augmentin. Restart taking Levaquin after 7 days. You will need to follow-up with your oncologist, Dr. Baez, she will be notified about your discharge and will contact you about your upcoming appointment. Pending Studies at Discharge: No Stand-Alone Forms: My fg microtec, Smoking Cessation Medications and DC Order Prescriptions: Continued mercaptopurine 50 mg Tablet 50 mg PO DAILY RF: 0 levofloxacin 500 mg Tablet 500 mg PO DAILY RF: 0 lidocaine-prilocaine 2.5-2.5 % Kit 1 ea topical DIRECTED RF: 0 ondansetron HCl [Zofran] 8 mg Tablet 8 mg PO TID PRN (Reason: n/v) RF: 0 acyclovir 400 mg Tablet 400 mg PO BID RF: 0 fluconazole 200 mg Tablet 400 mg PO DAILY RF: 0 sulfamethoxazole-trimethoprim 400-80 mg Tablet 1 tab PO DAILY RF: 0 mupirocin 2 % Ointment 1 applic TOPICAL BID RF: 0 glucosamine sulfate [Glucosamine] 500 mg Tablet 500 mg PO DAILY RF: 0 cytarabine (PF) 100 mg/5 mL (20 mg/mL) Solution 140 mg subcut DIRECTED RF: 0 docusate sodium [Colace] 100 mg Capsule 100 mg PO BID RF: 0 cholecalciferol (vitamin D3) [Vitamin D3] 1,000 unit Capsule 2,000 unit PO DAILY RF: 0 Discharge Orders: Discharge Order (Routine); Ordered 02/24/19 Ordered By: Ray Calixto Admission Data Admit Date/Time: 02/20/19 09:24 Attending Provider: Ray Calixto Admit Provider: Fady Nickerson Primary Care Provider: Nicolas Cervantes Other Providers: Nereida Cooper Other Interventions: Discharge Summary Assessment (RN) Last Done: 02/24/19 09:29 DC Date/Time DO NOT enter until pt leaves facility: 02/24/19 10:15
--- NOTE | 2019-02-24 06:58 | Hospitalist Progress Note ---
Date of Service February 24, 2019 Assessment & Plan (1) Neutropenic fever: SIRS plus lactic acid elevation on admission, sepsis suspected however no clear source of infection identified Immunocompromised patient Pancytopenia secondary to ALL and chemotherapy Hgb 6.5 - (02/21), received 1 unit of packed red blood cells, consent obtained, must use irradiated blood products ALL (diagnosed in December 2018) ongoing chemotherapy (weekly, the next one was planned for February 22) - status post Ommaya reservoir placement on antibiotic/antiviral/antifungal prophylaxis -Follows with oncologist, Dr. Baez, in [facility] -Dr. Baez, was contacted by me, she is aware of the patient and and so is oncologist log pond worker in [facility], Dr. Wall -Continue to follow-up white blood cell count/ANC closely, currently improving -Current WBC 3.70, ANC today 2.21 -patient no longer neutropenic (not neutropenic since 02/22) -ANC 0.85 on admission, 1.34 (on 02/21) -Current Hgb 8.9 - improved, continue to monitor H&H -Current platelet count 282 - no longer thrombocytopenic, continue to monitor Persistent fever Pt had a fever 38.3C at 3 PM (02/20) and then at midnight 39.4C (02/20- 02/21). Called [facility] (02/21) and talked to Dr. Wall (oncologist log pond worker) for possible transfer (as Dr. Baez mentioned before, to consider transfer if pt continues to have a fever while on antibiotic treatment). Dr. Wall felt comfortable if pt stays here and treatment plan was discussed with him. He is also willing to accept the pt if she would like to be transferred (confirmed bed availability). Patient does not wish to be transferred at this time and prefers to stay here at [facility] for now. Had fever again, 38.1C (02/22 at 4 AM), ID consulted, will continue to monitor closely. Now afebrile, for over 48 hrs. Source unclear Strickland cultured - NGTD - started on Daptomycin, cefepime,per ID recs, will switch to PO Augmentin as pt continues to clin. improve, plan to d/c home today -We will also continue Bactrim, fluconazole and acyclovir, will hold Levaquin, this was discussed with patient's oncologist -IVF, follow lactic acid (2.3 on admission, then on repeat down to 1.3) -ID consulted for further recommendations -Per ID, if pt continues to improve and cltx remain negative recommend to switch to Augmentin for 7 days DVT prophylaxis. SCDs Code status: Full code Subjective No acute events overnight. Pt is lying in bed, in NAD, comfortable but feeling tired. Pt denies any fevers, chills, chest pain, shortness of breath, abd. pain, nausea or vomiting. Current WBC 3.70, ANC 2.21, hemoglobin 8.9, platelets 282 Afebrile overnight Review of Systems Review of Systems: All systems reviewed & are unremarkable except as noted in HPI & below As per HPI, all 10 systems reviewed, all other ROS negative Constitutional: + fatigue; no fever and no chills Respiratory: no cough and no dyspnea Cardiovascular: no chest pain and no palpitations Gastrointestinal: no abdominal pain, no nausea and no vomiting Physical Exam Physical Exam: GENERAL: Female patient lying in bed, in no acute distress HEENT: ommaya placement on the right front side, well healed, pale palpebral conjunctivae, EOMI, PERRL, moist mucous membrane NECK : Supple, no tenderness CHEST : Clear to auscultation bilaterally, no wheezing or rhonchi or crackles HEART : RRR, no obvious murmurs ABDOMEN: Positive bowel sounds, soft, nontender, nondistended, no guarding EXTREMITIES : No LE swelling/tenderness, moves all 4 extremities spontaneously and without difficulty SKIN: warm, dry, pale NEUROLOGIC : Alert and oriented x3, no facial asymmetry, answers questions appropriately, speech fluent, moves extremities spontaneously Results & Data Vital Signs (Past 12 Hours) Vital Signs Temp Pulse Resp BP Pulse Ox 02/24/19 03:06 36.9 C 78 18 112/69 96 02/23/19 23:29 37.1 C 80 18 95/58 L 94 Laboratory Results 02/24/19 02/24/19 Range/Units 05:27 05:27 WBC 3.70 L (4.8-10.8) K/uL RBC 2.94 L (4.2-5.4) M/uL Hgb 8.9 L (12.0-16.0) g/dL Hct 26.8 L (37-47) % MCV 91.2 (80-100) fL MCH 30.3 (25-34) pg MCHC 33.2 (32-36) g/dL RDW Std Deviation 54.7 H (36.4-46.3) fL RDW Coeff of Julissa 18.4 H (11.5-14.5) % Plt Count 282 (130-400) K/uL MPV 9.3 (7.4-10.4) fL Immature Gran % (Auto) 0.5 % Neut % (Auto) 59.8 % Lymph % (Auto) 17.0 % Walsh % (Auto) 21.1 % Eos % (Auto) 1.6 % Baso % (Auto) 0.0 % Immature Gran # (Auto) 0.02 (0.00-0.02) K/uL Neut # (Auto) 2.21 (1.4-6.5) K/uL Lymph # (Auto) 0.63 L (1.2-3.4) K/uL Walsh # (Auto) 0.78 H (0.11-0.59) K/uL Eos # (Auto) 0.06 (0-0.5) K/uL Baso # (Auto) 0.00 (0-0.2) K/uL Absolute Nucleated RBC 0.03 H (0-0) K/uL Nucleated RBC % (auto) 0.9 % Sodium 135 L (136-145) mmol/L Potassium 4.0 (3.5-5.1) mmol/L Chloride 105 (98-107) mmol/L Carbon Dioxide 26 (21-32) mmol/L Anion Gap 4.0 (3-11) BUN 12 (7-18) mg/dl Creatinine 0.56 L (0.6-1.2) mg/dl Est Cr Clr Drug Dosing 102.8 ml/min Est GFR ( Amer) 115.0 Est GFR (Non-Af Amer) 99.2 BUN/Creatinine Ratio 21.5 H (10-20) Glucose 103 H (70-99) mg/dl Calcium 9.3 (8.5-10.1) mg/dl Medications Administered Current Inpatient Medications Acetaminophen (Tylenol) 650 mg PO Q4H PRN PRN Reason: pain/fever Stop: 03/22/19 09:30 Last Admin: 02/23/19 00:13 Dose: 650 mg Documented by: Acyclovir (Zovirax) 400 mg PO BID [facility] Stop: 03/22/19 09:30 Last Admin: 02/23/19 20:20 Dose: 400 mg Documented by: Amoxicillin/Clavulanate Potassium (Augmentin 875mg) 1 tab PO BIDM [facility] Stop: 02/26/19 07:59 Docusate Sodium (Colace) 100 mg PO BID [facility] Stop: 03/22/19 09:30 Last Admin: 02/23/19 20:20 Dose: 100 mg Documented by: Fluconazole (Diflucan) 400 mg PO DAILY [facility] Stop: 03/22/19 09:30 Last Admin: 02/23/19 08:54 Dose: 400 mg Documented by: Heparin Sodium (Porcine) (Heparin Sod 100 Unit/Ml Flush) 5 ml FLUSH PRN PRN PRN Reason: Flush Stop: 03/24/19 20:27 Last Admin: 02/24/19 05:26 Dose: 5 ml Documented by: Promethazine HCl 12.5 mg/ (Sodium Chloride) 50.5 mls @ 202 mls/hr IV Q6H PRN PRN Reason: Nausea And Vomiting Stop: 03/22/19 09:30 Lorazepam (Ativan) 0.25 mg in 0.5 mls @ 0.5 mls/min IV Q4H PRN PRN Reason: Anxiety Stop: 03/22/19 09:30 Ibuprofen (Advil) 200 mg PO Q6H PRN PRN Reason: Mild Pain Stop: 03/22/19 09:30 Last Admin: 02/21/19 00:13 Dose: 200 mg Documented by: Trimethoprim/Sulfamethoxazole (Septra 400/80mg Tab) 1 tab PO DAILY [facility] Stop: 03/23/19 09:44 Last Admin: 02/23/19 08:54 Dose: 1 tab Documented by:
[2019-02-24] MEDS ORDERED: AMOXICILLIN/CLAVULANATE 875 MG TAB PO SCH (08:00)
[2019-02-24] MEDS: SULFA/TRIMETH 400/80MG TAB PO SCH (08:09)
[2019-02-24] MEDS: FLUCONAZOLE 100 MG TAB PO SCH (08:09)
[2019-02-24] MEDS: ACYCLOVIR 400 MG TAB PO SCH (08:09)
[2019-02-24] MEDS: DOCUSATE SODIUM 100 MG CAP PO SCH (08:09)
--- NOTE | 2019-03-02 08:18 | Coding Query ---
CODING QUERY To promote full compliance with coding requirements relating to patient care, provider participation is requested in all cases of instructional technology director uncertainty. Please assist us with the question(s) below: Coding Question(s): Dr. Calixto, Several diagnoses listed throughout the chart were not carried over to the discharge summary. Per coding guidelines, "When the physician has documented what appears to be a current diagnosis in the body of the record, but has not included the diagnosis in the final diagnostic statement, the physician should be asked whether the diagnosis should be added." (Source [facility]oding [facility] 2 QTR90. p3-4) Please clarify if the following diagnoses were present and treated during this encounter or ruled out: Sepsis: ( ) present and treated (x ) ruled out ( ) other, please explain ( ) unable to clinically determine Severe sepsis: ( ) present and treated ( x) ruled out ( ) other, please explain ( ) unable to clinically determine UTI: ( ) present and treated (x ) ruled out ( ) other, please explain ( ) unable to clinically determine Physician's Response(s): Sepsis suspected on admission, UTI suspected on admission, however no source of infection found. Thank you for your time, ROSI Manzano, [facility]
== END 2019-02-24 10:15 | disposition home health service (06) | DRG 809 ==
LOC: ED 01:18 → 4W 09:20

== ENCOUNTER 2019-09-27 04:13 | Inpatient (IN) ==
[2019-09-27] MEDS ORDERED: ACETAMINOPHEN 1,000 MG/100 ML VIAL IV STA (04:28)
[2019-09-27] MEDS ORDERED: SODIUM CHLORIDE 0.9% 1000ML 500 ML IV ONE ×2 (04:28→05:14)
[2019-09-27] MEDS ORDERED: LIDOCAINE/PRILOCAINE 2.5% EA CRM EXT ONE ×2 (04:28→04:29)
--- NOTE | 2019-09-27 04:32 | Emergency Department Note ---
History of Present Illness General Chief complaint: Weakness Stated complaint: WEAK/FEVER History of Present Illness This 64-year-old cancer patient presents to the ER complaining of weakness and fever Location: Generalized Quality: Weak Severity: Moderate Duration: Today Timing: Patient got up to go the bathroom got weak and collapsed to the ground Context: Patient collapsed and was brought in Modifying factors: better with rest; worse with activity Patient has ALL. No recent chemo or radiation. She follows with oncology at [place]. Recent negative Covid test. She has not traveled. No sick contacts. Patient denies chest pain, dyspnea, cough, congestion, abdominal pain, vomiting, diarrhea, urinary symptoms. Patient states she got up to go the bathroom got lightheaded and collapsed. She feels quite weak. Home Medications Home Medications Medication Instructions Recorded Confirmed Type cholecalciferol (vitamin D3) 2,000 unit PO DAILY 12/20/18 09/27/19 History [Vitamin D3] lidocaine-prilocaine 1 ea TOPICAL DIRECTED 02/20/19 09/27/19 History acyclovir 400 mg PO BID 09/27/19 09/27/19 History Allergies Allergy/AdvReac Type Severity Reaction Status Date / Time nickel Allergy Rash Verified 09/27/19 05:23 Past Med/Surg History Medical History (Updated 09/27/19 @ 05:41 by Sofi Jasso PA-C) Leukemia Sciatica (Chronic) Surgical History No pertinent past surgical history Family History Other No significant family history Social History Smoking Status: Never smoker Second Hand Exposure: No; Hx Alcohol Use: No Hx Substance Use: No Preferred Language: Ivorian Communication Ability: Effective Director Of Operations Home Health Required: No Beliefs That Will Affect Care: None Current Living Situation: Spouse and Family Current Living Situation Comment: daughter and family with patient now Feels Safe at Home: Yes Review of Systems A total of 10 systems reviewed and were otherwise negative Physical Exam Vital Signs Vital Signs - 24 hr 09/27/19 04:15 09/27/19 04:27 09/27/19 05:00 Temperature 38.1 C H Temperature Source Oral Pulse Rate 86 Pulse Rate [Apical] 83 Respiratory Rate 16 18 Blood Pressure 133/81 Blood Pressure [Left Arm] 113/71 Blood Pressure Mean 98 Blood Pressure Mean [Left Arm] 85 Pulse Oximetry 99 98 Oxygen Delivery Method Room Air Room Air Room Air Sepsis Recent Fever Within 48 Hours Yes Sepsis New/Unexplained Change in Mental Status No Sepsis Action Taken by Nursing No Action Required 09/27/19 05:33 09/27/19 06:01 Temperature 37.4 C Temperature Source Oral Pulse Rate Pulse Rate [Apical] 76 81 Respiratory Rate 18 17 Blood Pressure Blood Pressure [Left Arm] 98/74 L 133/79 Blood Pressure Mean Blood Pressure Mean [Left Arm] 82 97 Pulse Oximetry 98 99 Oxygen Delivery Method Room Air Room Air Sepsis Recent Fever Within 48 Hours Sepsis New/Unexplained Change in Mental Status Sepsis Action Taken by Nursing VITALS: Vitals are noted on the nurse's note and reviewed by myself. Vital signs low-grade fever. GENERAL: White female dehydrated appearing, in no acute distress SKIN: The skin was without rashes, erythema, edema, or bruising. There is no tenting of the skin. Capillary reflex less than 2 seconds. HEAD: Normocephalic atraumatic. EARS: External auditory canals clear, tympanic membranes pearly clemons without erythema or effusion bilaterally. EYES: Pupils equal round and reactive to light and accommodation. Conjunctivae without injection, sclerae without icterus. Extraocular movements intact. NOSE: Patent, turbinates without inflammation or discharge. No sinus tenderness. MOUTH: Mucous membranes mildly dry. Pharynx without erythema or exudate. Uvula midline. Airway patent. Tongue does not deviate. NECK: Supple without nuchal rigidity. No lymphadenopathy. No thyromegaly. Ce rvical spine is nontender. No JVD. HEART: Regular rate and rhythm LUNGS: Clear to auscultation bilaterally without wheezes, rales or rhonchi. No retractions or accessory muscle use. ABDOMEN: Positive bowel sounds x 4. Normal tympanic percussion. Soft, nontender, without masses or organomegaly. Wright sign negative. No guarding or rebound tenderness. No CVA tenderness MUSCULOSKELETAL: No muscle atrophy, erythema, or edema noted. NEURO: Patient was alert and oriented to person place and time. Normal sensation to light and sharp touch. No focal neurological deficits. Course Administered Medications Discontinued Medications Acetaminophen (Ofirmev) 1,000 mg in 100 mls @ 400 mls/hr IV NOW STA Stop: 09/27/19 04:42 Last Infusion: 09/27/19 05:03 Dose: 0 mls/hr Documented by: [id number] Admin: 09/27/19 04:47 Dose: 400 mls/hr Documented by: [id number] Sodium Chloride (Nss 1000ml) 500 mls @ 999 mls/hr IV .Q31M ONE Stop: 09/27/19 04:58 Last Infusion: 09/27/19 05:20 Dose: 0 mls/hr Documented by: [id number] Admin: 09/27/19 04:46 Dose: 999 mls/hr Documented by: [id number] Sodium Chloride (Nss 1000ml) 500 mls @ 999 mls/hr IV .Q31M ONE Stop: 09/27/19 05:44 Last Infusion: 09/27/19 06:00 Dose: 0 mls/hr Documented by: [id number] Admin: 09/27/19 05:28 Dose: 999 mls/hr Documented by: [id number] Cefepime HCl (Maxipime) 2,000 mg in 20 mls @ 5 mls/min IV NOW STA; Protocol Stop: 09/27/19 05:40 Last Admin: 09/27/19 05:56 Dose: 5 mls/min Documented by: [id number] Lidocaine/Prilocaine (Emla 2.5% Crm) 1 ea EXT NOW ONE Stop: 09/27/19 04:29 Last Admin: 09/27/19 04:31 Dose: Not Given Documented by: [id number] Lidocaine/Prilocaine (Emla 2.5% Crm) Confirm Administered Dose 1 ea EXT .STK-MED ONE Stop: 09/27/19 04:30 Last Admin: 09/27/19 04:30 Dose: 1 ea Documented by: [id number] Potassium Chloride (Klor-Con M10) 30 meq PO NOW STA Stop: 09/27/19 05:43 Last Admin: 09/27/19 05:56 Dose: 30 meq Documented by: [id number] Medical Decision Making Medical Records Attestation: I reviewed the patient's medical records. Home Medications Current Medication List: was personally reviewed by me Laboratory Data Attestation: I reviewed the patient's lab results. Result diagrams: 09/27/19 04:49 09/27/19 04:49 Lab Results 09/27/19 09/27/19 09/27/19 Range/Units 04:32 04:49 04:49 WBC 1.87 L (4.8-10.8) K/uL RBC 2.06 L (4.2-5.4) M/uL Hgb 8.0 L (12.0-16.0) g/dL POC Hgb (12.0-16.0) g/dl Hct 23.2 L (37-47) % POC Hct (37-47) % MCV 112.6 H (80-100) fL MCH 38.8 H (25-34) pg MCHC 34.5 (32-36) g/dL RDW Std Deviation 63.5 H (36.4-46.3) fL RDW Coeff of Julissa 15.5 H (11.5-14.5) % Plt Count 51 L (130-400) K/uL PT 10.7 (9.0-12.0) Seconds INR 1.0 (0.9-1.1) APTT 22.3 (21.0-31.0) Seconds PTT Ratio 0.8 POC Sodium (135-144) mmol/L Sodium (136-145) mmol/L POC Potassium (3.3-5.0) mmol/L Potassium (3.5-5.1) mmol/L POC Chloride (101-112) mmol/L Chloride (98-107) mmol/L Carbon Dioxide (21-32) mmol/L POC Total CO2 (24-31) mmol/L Anion Gap (3-11) POC Anion Gap (16-25) mmol/L POC BUN (7-18) mg/dl BUN (7-18) mg/dl Creatinine (0.6-1.2) mg/dl POC Creatinine (0.6-1.3) mg/dl Est Cr Clr Drug Dosing ml/min Est GFR ( Amer) Est GFR (Non-Af Amer) BUN/Creatinine Ratio (10-20) Glucose (70-99) mg/dl POC Glucose (other) (70-99) mg/dl POC Lactic Acid Chava (0.90-1.70) mmol/L Calcium (8.5-10.1) mg/dl POC Ioniz Calcium Obey (1.12-1.32) mmol/l Magnesium (1.8-2.4) mg/dl Total Bilirubin (0.2-1) mg/dl AST (15-37) U/L ALT (12-78) U/L Alkaline Phosphatase (45-117) U/L Troponin I (0-0.045) ng/ml Total Protein (6.4-8.2) gm/dl Albumin (3.4-5.0) gm/dl Globulin (2.5-4.0) gm/dl Albumin/Globulin Ratio (0.9-2) Urine Color Yellow Urine Appearance Clear (Clear) Urine pH 5.0 (4.5-7.5) Ur Specific Kenvil 1.019 (1.000-1.030) Urine Protein 1+ H (Negative) Urine Glucose (UA) Negative (Negative) Urine Ketones Negative (Negative) Urine Blood Negative (Negative) Urine Nitrite Negative (Negative) Urine Bilirubin Negative (Negative) Urine Urobilinogen Negative (Negative) Ur Leukocyte Esterase Negative (Negative) Urine WBC (Auto) 1-5 (0-5) /hpf Urine RBC (Auto) 0-4 (0-4) /hpf U Hyaline Cast (Auto) 1-5 (0-5) /lpf U Epithel Cells (Auto) 5-10 H (0-5) /lpf Urine Bacteria (Auto) Negative (Negative) 09/27/19 09/27/19 09/27/19 Range/Units 04:49 04:53 04:58 WBC (4.8-10.8) K/uL RBC (4.2-5.4) M/uL Hgb (12.0-16.0) g/dL POC Hgb 7.1 L (12.0-16.0) g/dl Hct (37-47) % POC Hct 21 L (37-47) % MCV (80-100) fL MCH (25-34) pg MCHC (32-36) g/dL RDW Std Deviation (36.4-46.3) fL RDW Coeff of Julissa (11.5-14.5) % Plt Count (130-400) K/uL PT (9.0-12.0) Seconds INR (0.9-1.1) APTT (21.0-31.0) Seconds PTT Ratio POC Sodium 134 L (135-144) mmol/L Sodium 136 (136-145) mmol/L POC Potassium 3.2 L (3.3-5.0) mmol/L Potassium 3.2 L (3.5-5.1) mmol/L POC Chloride 100 L (101-112) mmol/L Chloride 104 (98-107) mmol/L Carbon Dioxide 24 (21-32) mmol/L POC Total CO2 21 L (24-31) mmol/L Anion Gap 9.0 (3-11) POC Anion Gap 18.0 (16-25) mmol/L POC BUN 17 (7-18) mg/dl BUN 18 (7-18) mg/dl Creatinine 1.64 H (0.6-1.2) mg/dl POC Creatinine 1.6 H (0.6-1.3) mg/dl Est Cr Clr Drug Dosing 31.2 ml/min Est GFR ( Amer) 37.9 Est GFR (Non-Af Amer) 32.7 BUN/Creatinine Ratio 10.9 (10-20) Glucose 119 H (70-99) mg/dl POC Glucose (other) 117 H (70-99) mg/dl POC Lactic Acid Chava 1.82 H (0.90-1.70) mmol/L Calcium 8.9 (8.5-10.1) mg/dl POC Ioniz Calcium Obey 1.22 (1.12-1.32) mmol/l Magnesium 2.1 (1.8-2.4) mg/dl Total Bilirubin 0.3 (0.2-1) mg/dl AST 22 (15-37) U/L ALT 23 (12-78) U/L Alkaline Phosphatase 48 (45-117) U/L Troponin I < 0.015 (0-0.045) ng/ml Total Protein 6.2 L (6.4-8.2) gm/dl Albumin 3.5 (3.4-5.0) gm/dl Globulin 2.7 (2.5-4.0) gm/dl Albumin/Globulin Ratio 1.3 (0.9-2) Urine Color Urine Appearance (Clear) Urine pH (4.5-7.5) Ur Specific Kenvil (1.000-1.030) Urine Protein (Negative) Urine Glucose (UA) (Negative) Urine Ketones (Negative) Urine Blood (Negative) Urine Nitrite (Negative) Urine Bilirubin (Negative) Urine Urobilinogen (Negative) Ur Leukocyte Esterase (Negative) Urine WBC (Auto) (0-5) /hpf Urine RBC (Auto) (0-4) /hpf U Hyaline Cast (Auto) (0-5) /lpf U Epithel Cells (Auto) (0-5) /lpf Urine Bacteria (Auto) (Negative) Imaging Data Attestation: I personally reviewed and interpreted this imaging study as follows: Blood Pressure Blood Pressure Findings: Normal blood pressure MDM Narrative Prior records/ancillary studies reviewed. Triage Nursing notes reviewed. Additional history obtained from EMS. The patient's history was concerning for fever. Differential diagnosis: Etiologies such as viral syndrome, otitis, pharyngitis, pneumonia, influenza, meningitis, urinary tract infection, sepsis, bacteremia, as well as others were entertained. Physical examination: As above ER treatment provided: An order was placed for continuous cardiac monitoring. The monitor shows a rate of 60-100 with a normal sinus rhythm. IV fluids, Tylenol, cefepime, potassium Isolation and neutropenic precautions implemented On reassessment the patient felt better. Diagnostics interpreted by me: ECG: Normal sinus, normal intervals, no acute ST-T wave changes, rate 84. Impression normal sinus rhythm talked about self EKG ordered for weakness I think arrhythmia is unlikely. EKG shows normal sinus rhythm with no interval abnormalities such as QT prolongation or WPW. There are no findings to suggest Brugada syndrome. Cardiac monitoring in the emergency department reveals no tachycardic or bradycardic dysrhythmia. Hypertrophic cardiomyopathy was considered but there are no clear historical elements pointing toward this. EKG is not suggestive. The QRS voltage is not extremely large and there are no suggestive Q waves. The labs revealed pancytopenia, hypokalemia Blood cultures pending Minimally elevated lactic acid, negative urine Imaging studies: Chest x-ray with no acute consolidation, pneumothorax or free air per my interpretation CT HEAD: No ICH, mass effect or edema. No evidence of acute cortical stroke. Right-sided ventriculostomy catheter tip seen near the foramen of Monro. Periventricular small vessel ischemic change. Visualized sinuses and mastoid air cells are clear. Radiologist: Garrett Godfrey MD Consultation: A consultation was placed with Dr Starks. The case was discussed and diagnostics were reviewed. The patient was evaluated in the ER for further treatment. This appears to be consistent with dehydration, acute kidney injury, fever in a cancer patient. Covid test is pending. Patient was started on antibiotics. Me gilbert was consulted. She was hydrated as above. She is agreeable to treatment plan of admission. By the evaluation outlined above emergent etiologies such as otitis, pharyngitis, pneumonia, meningitis, urinary tract infection, as well as others were deemed relatively unlikely. The pt informed about the findings as listed above. All questions were answered and pleased with the treatment. The chart was completed utilizing [employer] Speech voice recognition software. Grammatical errors, random word insertions, pronoun errors, and incomplete sentences are an occassional consequence of this system due to software limitations, ambient noise, and hardware issues. Any formal questions or concerns about the content, text, or information contained within the body of this dictation should be directly addressed to the physician automotive service assistant for clarification. Impression & Plan Fever, Pancytopenia, TIERRA (acute kidney injury) Discharge Plan Visit Data Chief Complaint: Weakness Stated Complaint: WEAK/FEVER Other Complaint: Fever ED Provider: Sheila Lopez ED Midlevel Provider: Sofi Jasso Discharge Problem: Fever, Pancytopenia, TIERRA (acute kidney injury) Patient Disposition: Being Evaluated by Hospitalist Condition: Fair Forms Stand Alone Forms: nooked Prescriptions Prescriptions: No Action lidocaine-prilocaine 2.5-2.5 % Kit 1 ea topical DIRECTED RF: 0 cholecalciferol (vitamin D3) [Vitamin D3] 1,000 unit Capsule 2,000 unit PO DAILY RF: 0 acyclovir 800 mg tablet 400 mg PO BID RF: 0 Referrals Referrals: Nicolas Cervantes DO [Primary Care Provider] - Discharge Problem: Fever Qualifiers: Fever type: unspecified Qualified Code(s): R50.9 - Fever, unspecified
[2019-09-27 04:48] LABS: Appearance Urine Clear (Clear); Bacteria Urine Automated Negative (Negative); Bilirubin Urine Negative (Negative); Blood Urine Negative (Negative); Color Urine Yellow; Glucose Urine UA Negative (Negative); Ketones Urine Negative (Negative); Leukocyte Esterase Urine Negative (Negative); Nitrite Urine Negative (Negative); Protein Urine 1+ (Negative); RBC Urine Automated 0-4 /hpf (0-4); Specific Gravity Urine 1.019 (1.000-1.030); Urobilinogen Urine Negative (Negative)
[2019-09-27 05:07] LABS: iSTAT Creatinine 1.6 mg/dl (0.6-1.3); iSTAT Hemoglobin 7.1 g/dl (12.0-16.0); iSTAT Ionized Calcium 1.22 mmol/l (1.12-1.32); iSTAT Potassium 3.2 mmol/L (3.3-5.0)
[2019-09-27 05:16] LABS: Partial Thromboplastin Ratio 0.8; Partial Thromboplastin Time 22.3 Seconds (21.0-31.0); Prothrombin Time 10.7 Seconds (9.0-12.0)
[2019-09-27 05:30] LABS: Hematocrit (blood only) 23.2 % (37-47); Mean Corpuscular Hemoglobin 38.8 pg (25-34); Mean Corpuscular Hgb Conc 34.5 g/dL (32-36); Mean Corpuscular Volume 112.6 fL (80-100); Platelet Count 51 K/uL (130-400); RDW Coefficient of Variation 15.5 % (11.5-14.5); RDW Standard Deviation 63.5 fL (36.4-46.3); Red Blood Count 2.06 M/uL (4.2-5.4); White Blood Count 1.87 K/uL (4.8-10.8)
[2019-09-27 05:33] LABS: Alanine Aminotransferase 23 U/L (12-78); Albumin Level 3.5 gm/dl (3.4-5.0); Aspartate Aminotransferase 22 U/L (15-37); BUN Creatinine Ratio 10.9 (10-20); Blood Urea Nitrogen 18 mg/dl (7-18); Calcium 8.9 mg/dl (8.5-10.1); Carbon Dioxide 24 mmol/L (21-32); Chloride 104 mmol/L (98-107); Creatinine Clr Calc Pharmacy 31.2 ml/min; Est GFR (African American) 37.9; Est GFR (Non-African American) 32.7; Glucose 119 mg/dl (70-99); Magnesium 2.1 mg/dl (1.8-2.4); Potassium 3.2 mmol/L (3.5-5.1); Sodium 136 mmol/L (136-145)
[2019-09-27 05:37] LABS: Albumin Globulin Ratio 1.3 (0.9-2); Alkaline Phosphatase 48 U/L (45-117); Bilirubin,Total 0.3 mg/dl (0.2-1); Globulin 2.7 gm/dl (2.5-4.0); Total Protein 6.2 gm/dl (6.4-8.2); Troponin I < 0.015 ng/ml (0-0.045)
[2019-09-27] MEDS ORDERED: CEFEPIME 2,000 MG/20 ML VIAL IV STA (05:37)
[2019-09-27] MEDS ORDERED: POTASSIUM CHLORIDE 10 MEQ TABCR PO STA (05:42)
[2019-09-27 06:32] LABS: Basophils # (auto) 0.02 K/uL (0-0.2); Basophils % (auto) 1.1 %; Eosinophils # (auto) 0.07 K/uL (0-0.5); Eosinophils % (auto) 3.7 %; Immature Granulocytes # (auto) 0.05 K/uL (0.00-0.02); Immature Granulocytes % (auto) 2.7 %; Lymphocytes # (auto) 0.35 K/uL (1.2-3.4); Lymphocytes % (auto) 18.7 %; Macrocytosis Present; Monocytes # (auto) 0.21 K/uL (0.11-0.59); Monocytes % (auto) 11.2 %; Neutrophils # (auto) 1.17 K/uL (1.4-6.5); Neutrophils % (auto) 62.6 %
[2019-09-27 07:11] LABS: Lyme Ab IgG w/WB Rflx Negative (Negative); Lyme Ab IgM w/WB Rflx Negative (Negative)
--- NOTE | 2019-09-27 07:14 | CT Scan Report ---
CT SCAN OF THE BRAIN WITHOUT IV CONTRAST CLINICAL HISTORY: Generalized weakness. Syncope. COMPARISON STUDY: CT of the brain dated 08/14/2019. TECHNIQUE: Unenhanced axial CT scan of the brain is performed from the vertex to the skull base. A do se lowering technique was utilized adhering to the principles of ALARA. CT DOSE: 614.27 mGy.cm FINDINGS: Brain parenchyma: There is advanced confluent white matter abnormality which is similar to previous. A right frontal approach ventricular shunt is unchanged in position. This terminates in the frontal h orn of the right lateral ventricle. There is minimal right frontal encephalomalacia at the catheter i nsertion site. There is no hemorrhage, mass effect, or evidence of acute territorial ischemia by CT c riteria. Patino-white matter differentiation is preserved. No extra-axial fluid collection is seen. Ventricles, sulci, cisterns: Prominent secondary to involutional change in similar in configuration t o 08/14/2019. See above. Intracranial vasculature: Intracranial vessels the skull base are normal as visualized. Calvarium: There is a right frontal douglas hole. No destructive calvarial lesion is identified. Sinuses and mastoids: The visualized paranasal sinuses are clear. The mastoid air cells are well pneu matized. Orbits: The bony orbits are grossly intact. IMPRESSION: 1. There is no hemorrhage, mass effect, or evidence of acute territorial ischemia by CT criteria. 2. A ventricular shunt catheter is unchanged in position and ventricular caliber is unchanged from pr evious. ACT 112: Negative or not required by law. Electronically signed by: Johnson Villagomez M.D. 09/27/2019 7:13 AM
[2019-09-27] MEDS ORDERED: POTASSIUM CHLORIDE 20 MEQ/15 ML UDC PO STA (08:10)
[2019-09-27] MEDS ORDERED: VANCOMYCIN CONSULT ACTIVE PRN (08:10)
[2019-09-27] MEDS ORDERED: ONDANSETRON INJ 2 MG/ML 2 ML VIAL IV PRN (08:10)
[2019-09-27] MEDS ORDERED: POLYETHYLENE (MIRALAX) 17 GM PACK PO PRN (08:10)
[2019-09-27] MEDS ORDERED: NITROGLYCERIN SL 0.4 MG/TAB TAB SL PRN (08:10)
[2019-09-27] MEDS ORDERED: CEFEPIME CONSULT ACTIVE PRN (08:13)
--- NOTE | 2019-09-27 08:15 | XRay Report ---
XR chest 1V portable CLINICAL HISTORY: SEPSIS dyspnea COMPARISON STUDY: 02/20/2019 FINDINGS: Atelectasis left lung base. Lungs otherwise appear clear. There is central catheter in supe rior vena cava. IMPRESSION: Atelectasis left base. Study is otherwise negative. ACT 112: Negative or not required by law. The above report was generated using voice recognition software. It may contain grammatical, syntax or spelling errors. Electronically signed by: Nathanael Sood M.D. 09/27/2019 8:14 AM
[2019-09-27] MEDS ORDERED: LIDOCAINE/PRILOCAINE 2.5% EA CRM EXT PRN (08:19)
[2019-09-27] MEDS ORDERED: DEXTROSE 50% 50 ML SYRINGE IV PRN (08:30)
[2019-09-27] MEDS ORDERED: CARBOHYDRATES FOR HYPOGLYCEMIA PO PRN (08:30)
[2019-09-27] MEDS ORDERED: GLUCAGON FOR INJ 1 MG VIAL IM PRN (08:30)
[2019-09-27] MEDS ORDERED: GLUCOSE 10 TABS/TUBE PO PRN (08:30)
[2019-09-27] MEDS ORDERED: GLUCOSE 40% GEL 15 GM TUBE PO PRN (08:30)
[2019-09-27] MEDS: INSULIN ASPART 100 UNITS/ML 3 ML PEN SC SCH ×4 (08:42→21:26)
[2019-09-27] MEDS: SODIUM CHLORIDE 0.9% 1000ML 1,000 ML IV SCH ×2 (08:43→21:01)
[2019-09-27] MEDS ORDERED: VANCOMYCIN HCL 1,500 MG in SODIUM CHLORIDE 0.9% 500 ML IV ONE (08:45)
[2019-09-27] MEDS ORDERED: DOXYCYCLINE HYCLATE 100 MG CAP PO SCH (09:00)
--- NOTE | 2019-09-27 09:01 | Pharmacy Report ---
Pharmacy Abx Initial Consult - Date of Service September 27, 2019 - Pharmacy Dosing Scope Date of Consult: 09/26 Consultation requested by: Dr. Starks Pharmacy is consulted to initiate vancomycin and cefepime IV/PO dosing therapy, order appropriate labs and adjust drug dose/frequency. - Subjective The patient is a 64 year old F admitted on 09/27/19 06:35. - Objective Height: 5 ft 5 in Weight: 68.1 kg Vital Signs (Past 12hrs): Vital Signs Temp Pulse Pulse Pulse Resp BP BP 09/27/19 08:09 36.8 C 77 18 109/62 09/27/19 07:42 73 16 115/71 09/27/19 06:31 77 17 98/63 L 09/27/19 06:01 81 17 133/79 09/27/19 05:33 37.4 C 76 18 98/74 L 09/27/19 05:00 83 18 113/71 09/27/19 04:15 38.1 C H 86 16 133/81 Pulse Ox 09/27/19 08:09 99 09/27/19 07:42 16 L 09/27/19 06:31 95 09/27/19 06:01 99 09/27/19 05:33 98 09/27/19 05:00 98 09/27/19 04:15 99 Lab Results (24hrs): Laboratory Tests (24 Hours) 09/27/19 09/27/19 04:49 04:49 WBC 1.87 L Neut # (Auto) 1.17 L Creatinine 1.64 H Est Cr Clr Drug Dosing 31.2 Micro Results: 09/27/19 05:05 Aerobic Blood Culture - Pending Blood Anaerobic Blood Culture - Pending 09/27/19 04:49 Aerobic Blood Culture - Pending Blood Anaerobic Blood Culture - Pending - Risk Factors for Resistance * Immunocompromised (ALL - no recent chemo/radiation per notes) - Assessment & Plan Assessment 64 year old F started on empiric antibiotics - vancomycin/cefepime. Continues on doxycycline po and home acyclovir. Febrile on admission, blood cultures are pending. With hx of ALL and follows oncology at [place], however no recent chemo/radiation per MD notes. Prior to admission patient s/p collapse and with weakness/fever. Plan Vancomycin IV * Ordered loading dose of vancomycin 1500 mg x 1 (~22 mg/kg) * Due to increased Scr on admission will dose vancomycin by estimated kinetics rather than by AUC dosing nomogram. Prior admissions indicate Scr < 1.0 mg/dL * Estimated kinetics: t1/2~23 hrs, ke~0.03 hr-1, CrCl ~31 ml/min * Will plan to dose vancomycin at 1000 mg (~15 mg/kg) iv q 24 hrs to achieve an estimated trough 15-20 mcg/ml * Ordered empirically x 48 hrs, plan to follow and order trough as necessary Cefepime * 2 gm iv q 12 hrs (appropriate for CrCl 30-60 ml/min for target dose of 2 gm iv q 8 hrs) Pharmacy will continue to follow and will adjust dose/frequency as necessary. Thank you.
--- NOTE | 2019-09-27 09:31 | History and Physical Report ---
DATE OF ADMISSION: 09/27/2019 CHIEF COMPLAINT: Weakness, fever. 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 The postop course was complicated by diarrhea secondary to C. 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 She also received induction therapy prior to the transplant, which includes Cytoxan, cyclosporine. Postop course was also complicated by TIERRA requiring diuresis, bilateral pleural effusions, acute respiratory failure secondary to volume overload in a possible engraftment syndrome. The patient is no longer on steroids or cyclosporine. The patient's kidney function was fine until June 2019, then it fluctuated, currently around 1.7, and sodium has been around 129 to 131. Patient was recently seen on telemedicine by [facility] and was recommended for fluid restriction of 35 ounces per day . The patient also has history of iron deficiency anemia, lumbar degenerative disc disease, prediabetes, electrolyte abnormalities. Currently not on any chemo. Presents because of fever and weakness. The patient states since she is restricting fluids, she feels like she is dehydrated. She is feeling weak and tired at home and today she also developed fever, T-max was 101 degrees at home and she felt weak and slipped on to the floor and her got worried and was brought to the hospital. Currently resting comfortably and hemodynamically stable. In the ER, T max was 38.1, blood pressure is okay.She has pancytopenia with WBC of 1.87, which is around the same as outpatient too and hemoglobin of 8 and platelets of 51, which is almost similar to recent outpatient labs. Sodium of 136 and potassium of 3.2, creatinine of 1.6, which is baseline. Point of care lactic acid 1.8. Troponin was less than 0.015. Urinalysis was negative. Blood cultures were ordered and anaplasmosis screen ,Lyme screen and COVID-19 PCR are pending. The patient says a couple of weeks ago she had fever and went to [facility] and at that time also COVID test was done which was negative. The patient denies any headache, no blurred visions, no earache, no runny nose, no sore throat. No loss of sense of smell or taste. No cough, no nausea, no abdominal pain. Appetite is not that great. No diarrhea or constipation. No blood in stool or black stools. No burning micturition. No rash seen anywhere, no swelling in the legs. Ambulatory status is poor. She uses a walker. Denies any tick bites, but she states she has [place] in her backyard. ALLERGIES: NICKEL. PAST MEDICAL HISTORY: As mentioned above. PAST SURGICAL HISTORY: Colonoscopy, dental surgery, EGDs, sterotactic cranial intradural navigation, partial hysterectomy. MEDICATIONS: The patient is currently on acyclovir 400 mg p.o. b.i.d., Ativan prn prior to procedure,, lidocaine,-prilocaine 1 hour before port access, pentamidine inhalation 300 mg q. 4 weeks. FAMILY HISTORY: Significant for mother had thalassemia; maternal grandfather had diabetes; maternal grandmother had heart disorder; father had multiple myeloma. SOCIAL HISTORY: . No smoking, no alcohol, no drug use. REVIEW OF SYSTEMS: As per HPI. Rest of review of systems negative. PHYSICAL EXAMINATION: GENERAL: The patient is of moderate build, not in acute distress. VITAL SIGNS: T-max is 38.1, pulse is 77, respiratory rate 17, blood pressure 98/63, oxygen 95% on room air. HEENT: No pallor, no icterus. Pupils equal, round, reactive to light. Oral mucosa dry. NECK: No JVD, no neck masses. CARDIOVASCULAR: S1, S2 heard, regular rate and rhythm, no murmur, no gallop. RESPIRATORY SYSTEM: Normal AP diameter. No accessory muscle use. No wheezing, no crackles. ABDOMEN: Soft, bowel sounds present, nontender. No distention. CENTRAL NERVOUS SYSTEM: Cranial nerves II-XII grossly intact, nonfocal. EXTREMITIES: No edema, no erythema. LABORATORY DATA: WBC 1.8, hemoglobin 8, hematocrit 23.2, platelets 51. PT 10.7, INR 1, APTT 22.3. Sodium 136, potassium 3.2, chloride 104, CO2 of 24, BUN 18, creatinine 1.6, serum glucose 119. Point of care lactic acid is 1.8, calcium 8.9, magnesium 2.1, total bilirubin 0.3, AST 22, ALT 23, alkaline phosphatase 48. Troponin I less than 0.015. Urinalysis +1 protein, otherwise unremarkable. Anaplasmosis smear pending, Lyme screen pending. COVID-19 PCR pending. IMAGING DATA: Chest x-ray, no acute findings. CT of the head pending. ASSESSMENT AND PLAN: This is a 64-year-old female with history of ALL, status post chemo and status post bone marrow transplant in May 2019. Currently is no longer on any chemo, currently only on acyclovir for prophylaxis, who presents with fever and weakness. 1. Fever and weakness, possible febrile neutropenia. She has pancytopenia. Await cultures. Empirically starting on IV vancomycin, IV cefepime, and p.o. doxycycline. CXR and UA ok. Follow the cultures. IV fluids of normal saline at 100 mL per hour. Monitor in the tele floor. No signs of tick bite, but checking for anaplasmosis smear and lyme screen.Covid came back negative.. 2. History of ALL, status post chemo, status post bone marrow transplant in May 2019. Follows with hematology/oncology. Currently on acyclovir and pentamidine inhalation 300 mg q. 4 weeks. Pancytopenia, possibly from ALL, same as on recent outpatient labs. Will closely follow the labs and if any concern we will discuss with hematology/oncology at [facility]. 3. History of chronic kidney disease stage III. Creatinine was fine until June, then it got deteriorated. Following with nephrology at [facility]. Will follow the labs. 4. Hyponatremia, recently sodium level was fluctuating between 129 to 130s and currently Nephrology put her on fluid restriction of 35 ounces per day, but the patient says she is getting dehydrated and feeling weak from the lack of fluids. Currently getting fluids at 100 mL per hour. Will consult nephrology for further recommendations. 5. Hypokalemia, will replace. We will also check for magnesium. We will check for phosphorus levels. 6. Deep venous thrombosis prophylaxis, sequential compression devices for now. 7. Disposition: Closely monitor in tele floor. Level 1 full code. Expect to discharge home and follow with her family doctor. ORALIA
[2019-09-27] MEDS: CHOLECALCIFEROL 1,000 UNITS 25 MCG TAB PO SCH (09:51)
[2019-09-27] MEDS: ACYCLOVIR 400 MG TAB PO SCH ×2 (09:52→21:01)
[2019-09-27 13:32] LABS: BUN Creatinine Ratio 11.2 (10-20); Calcium 8.6 mg/dl (8.5-10.1); Creatinine Clr Calc Pharmacy 38.5 ml/min; Est GFR (African American) 48.8; Est GFR (Non-African American) 42.1; Potassium 3.9 mmol/L (3.5-5.1)
--- NOTE | 2019-09-27 13:37 | Hospitalist Progress Note ---
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 Wall We do not have any vascular surgeon and the patient seems to be high risk for ongoing infection without any ID service over here as well Case discussed with Dr. Wall who accepted transfer Discussed with the patient and she is agreeable to be transferred (2) H/O allogeneic bone marrow transplant: Allogenic bone marrow transplant for ALL Received chemotherapy and radiation with post transplant complications of kidney and respiratory failure Require dialysis during that time Has been under care of Dr. 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 Was on fluid restriction of 35 ounces daily Sodium seems to be reasonably stable at this time Is getting intravenous fluid for TIERRA Sodium level is normal DVT prophylaxis SCD Admission and Anticipated Discharge Date Admission Date: September 27, 2019 Subjective 09/27/2019 The patient was seen and examined in telemetry unit 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 in the last week of May and followed by chemoradiation She was admitted with weakness and fever early this morning She has been feeling a little better and denies any significant symptoms except weakness She has occasional chills but no increase in temperature 09/28/2019 The patient was seen and examined in telemetry unit She remains very weak and lethargic Does not show any improvement and she is having constant chills She denies any other significant symptoms Review of Systems Review of Systems: All systems reviewed and are unremarkable except noted below Neurologic: + generalized weakness Physical Exam Physical Exam: Lying in bed with chills without any acute pain Constitutional: + ill appearing and + thin; no acute distress Eyes: PERRL, conjunctivae normal, anicteric sclerae ENMT: external ear and nose normal, oropharynx normal Neck: trachea midline, no thyromegaly Respiratory: normal respiratory effort; no respiratory distress Auscultation: lungs clear to auscultation bilaterally Cardiovascular: Rate/Rhythm: regular rate and regular rhythm Heart Sounds: no murmur Extremities: + edema (Trace edema bilaterally) Gastrointestinal (Abdomen): Inspection/Auscultation: abdomen normal to inspection and normal bowel sounds; abdomen not distended Percussion/Palpation: abdomen soft Musculoskeletal: No acute arthritis involving any joints Neurologic: moves all extremities; no focal motor deficits Alert, awake and oriented x3. Remains extremely weak and getting weaker Lymphatic: no cervical or axillary lymphadenopathy Results & Data Results & Data ([facility]) Vital Signs (Past 12 Hours) Vital Signs Temp Pulse Pulse Pulse Resp BP BP 09/27/19 10:41 36.5 C 83 19 09/27/19 09:00 74 09/27/19 08:09 36.8 C 77 18 109/62 09/27/19 07:42 73 16 115/71 09/27/19 06:31 77 17 98/63 L 09/27/19 06:01 81 17 133/79 09/27/19 05:33 37.4 C 76 18 98/74 L 09/27/19 05:00 83 18 113/71 09/27/19 04:15 38.1 C H 86 16 133/81 BP Pulse Ox 09/27/19 10:41 137/74 99 09/27/19 09:00 09/27/19 08:09 99 09/27/19 07:42 16 L 09/27/19 06:31 95 09/27/19 06:01 99 09/27/19 05:33 98 09/27/19 05:00 98 09/27/19 04:15 99 Laboratory Results Short CBC 09/28/19 Range/Units 05:26 WBC 2.04 L (4.8-10.8) K/uL Hgb 7.9 L (12.0-16.0) g/dL Hct 22.8 L (37-47) % Plt Count 35 L (130-400) K/uL [facility] 09/27/19 09/27/19 09/28/19 12:38 20:17 05:26 Sodium 138 140 140 Potassium 3.9 D 3.5 3.4 L Chloride 109 H 113 H 114 H Carbon Dioxide 22 20 L 19 L BUN 15 16 15 Creatinine 1.33 H D 1.29 H 1.23 H Glucose 126 H 99 114 H Calcium 8.6 8.1 L 8.0 L Short CBC 09/27/19 Range/Units 04:49 WBC 1.87 L (4.8-10.8) K/uL Hgb 8.0 L (12.0-16.0) g/dL Hct 23.2 L (37-47) % Plt Count 51 L (130-400) K/uL [facility] 09/27/19 04:49 Sodium 136 Potassium 3.2 L Chloride 104 Carbon Dioxide 24 BUN 18 Creatinine 1.64 H Glucose 119 H Calcium 8.9 Cardiac Enzymes 09/27/19 Range/Units 04:49 Troponin I < 0.015 (0-0.045) ng/ml Liver Function 09/27/19 Range/Units 04:49 Total Bilirubin 0.3 (0.2-1) mg/dl AST 22 (15-37) U/L ALT 23 (12-78) U/L Alkaline Phosphatase 48 (45-117) U/L Albumin 3.5 (3.4-5.0) gm/dl Urine 09/27/19 Range/Units 04:32 Urine Color Yellow Urine Appearance Clear (Clear) Urine pH 5.0 (4.5-7.5) Ur Specific [place] 1.019 (1.000-1.030) Urine Protein 1+ H (Negative) Urine Glucose (UA) Negative (Negative) Medications Administered Current Inpatient Medications Acetaminophen (Tylenol) 650 mg PO Q4H PRN PRN Reason: Pain or Fever Stop: 10/27/19 08:09 Last Admin: 09/28/19 11:46 Dose: 650 mg Documented by: Acyclovir (Zovirax) 800 mg PO BID ORTEGA Stop: 10/27/19 08:59 Last Admin: 09/28/19 07:43 Dose: 800 mg Documented by: Dextrose (Dextrose 50%) 25 - 50 ml IV UD PRN; Protocol PRN Reason: Hypoglycemia Protocol Stop: 10/27/19 08:29 Glucagon (Glucagen) 1 mg IM UD PRN; Protocol PRN Reason: Hypoglycemia Protocol Stop: 10/27/19 08:29 Glucose (Glucose 40%) 15 - 30 gm PO UD PRN; Protocol PRN Reason: Hypoglycemia Protocol Stop: 10/27/19 08:29 Glucose (Dex4 Glucose) 4 - 8 tabs PO UD PRN; Protocol PRN Reason: Hypoglycemia Protocol Stop: 10/27/19 08:29 Heparin Sodium (Porcine) (Heparin Sod 100 Unit/Ml Flush) 5 ml FLUSH PRN PRN PRN Reason: Flush Stop: 10/27/19 23:02 Cefepime HCl 2,000 mg/ Syringe 20 mls @ 5.5 mls/min IV Q12H ORTEGA; Protocol Stop: 09/29/19 17:59 Last Admin: 09/28/19 05:45 Dose: 5.5 mls/min Documented by: Vancomycin HCl 1,000 mg/ (Sodium Chloride) 270 mls @ 125 mls/hr IV Q18H ORTEGA; Protocol Stop: 09/29/19 23:59 Parenteral Electrolytes (Normosol-R) 1,000 mls @ 100 mls/hr IV .Q10H ORTEGA Stop: 10/28/19 09:29 Last Admin: 09/28/19 10:02 Dose: 100 mls/hr Documented by: Insulin Aspart (Novolog Flexpen) 0 units SC ACHS ORTEGA Stop: 10/27/19 08:09 Last Admin: 09/28/19 11:57 Dose: Not Given Documented by: Lidocaine/Prilocaine (Emla 2.5% Crm) 1 ea EXT UD PRN PRN Reason: Pain Stop: 10/27/19 08:18 Miscellaneous (Carbohydrates For Hypoglycemia) 15 - 30 gm PO UD PRN PRN Reason: Hypoglycemia Treatment Stop: 10/27/19 08:29 Miscellaneous Information (Consult) 1 ea N/A UD PRN PRN Reason: Consult Stop: 10/27/19 08:09 Miscellaneous Information (Cefepime Consult Active) 1 ea N/A UD PRN PRN Reason: Consult Stop: 10/27/19 08:12 Nitroglycerin (Nitrostat) 0.4 mg SL UD PRN PRN Reason: Chest Pain Stop: 10/27/19 08:09 Ondansetron HCl (Zofran) 4 mg IV Q6H PRN PRN Reason: Nausea Stop: 10/27/19 08:09 Polyethylene Glycol (Miralax Powder Packet) 17 gm PO DAILY PRN PRN Reason: Constipation Stop: 10/27/19 08:09 Vitamin D (Vitamin D3) 2,000 units PO DAILY ORTEGA Stop: 10/27/19 08:59 Last Admin: 09/28/19 07:42 Dose: 2,000 units Documented by: (1) Fever Fever type: unspecified Qualified Code(s): R50.9 - Fever, unspecified
[2019-09-27] MEDS: ACETAMINOPHEN 325 MG TAB PO PRN (15:43)
[2019-09-27] MEDS ORDERED: ACETAMINOPHEN 500 MG TAB PO ONE (16:46)
[2019-09-27] MEDS ORDERED: ACETAMINOPHEN 500 MG TAB ONE (16:50)
[2019-09-27] MEDS: CEFEPIME 2,000 MG in SYRINGE 7.5 ML IV SCH (17:15)
--- NOTE | 2019-09-27 18:41 | Nephrology Consultation ---
Date of Consultation September 27, 2019 Assessment & Plan (1) Renal insufficiency: her baseline creatinine since early June has been mid ones-she remains at this baseline; would at this point call her CKD 3; no TIERRA currently but high risk for same given neutropenic fever, labile BP. Hx of 900 mg daily proteinuria; sediment not particularly inflamed -repeat prot/creat ratio -daily bmp -cont nephrotoxin avoidance -strict I/O (2) Neutropenic fever: -per primary service >> ? if any relation to recently tapered cyclosporine or to taking or to ? lack of opportunistic infection prophylaxis -on vanco and cefepime and NS at 100 mL hourly > cont NS same rate for now >monitor vanco levels carefully and often -on doxycycline also but may not need it given above coverage--no evidence of anaplasma on smear and lyme titers negative; discussed with Dr Nix -meningitis also on differential here given shunt, along with PNA, other opportunistic infection, GVHD, Present on Admission?: Yes (3) H/O allogeneic bone marrow transplant: -ensure she is on appropriate meds recommended by [facility] (see TE from today in [facility]); she is convinced has completed course; Dr Dove aware -daily bmp Present on Admission?: Yes (4) History of SIADH: SIADH attributed to low solute diet; fluid limit tightened and sodium responded>> at this point sepsis therapy takes precedence clinically over sodium -recheck bmp q 12 hrs generally >> since she had check at noon, would recheck now however and reassess IVF >> bmp ordered -maintain eukalemia Present on Admission?: Yes History of Present Illness Reason for Consultation: Renal insufficiency Requesting Physician: Dr Nix Attending Physician: Joann Nix MD History of Present Illness 64-year-old female whom I am asked to see for renal insufficiency was admitted today for evaluation of fever and a fall. She had temp 101.9 at home and slipped to the floor. Tmax today in house has been 38.9, where she is currently. Complex medical history includes ALL diagnosed December 2018 status post May 2019 bone marrow transplant with her postoperative course complicated by C. difficile and [id number] disease as well as volume overload manifesting as renal insufficiency and bilateral pleural effusions. Other medical history includes chronic anemia and lumbar degenerative disc disease. She had induction Cytoxan and cyclosporine along with conditioning Cytoxan and full body radiation therapy prior to transplant; post transplant she had Cytoxan and cyclosporine as well as steroid therapy for the GVHD. She was not on cyclosporine on presentation today having recently completed taper of this last week. Note that telephone note with pharmacy from today [facility] shows she should be on acyclovir 800 mg bid, fluconazole 200 mg daily, ursodiol 300 mg bid, inhaled pentamidine; pt tells me however this was all stopped last week after completing her course. Her creatinine in May and early June ran 0.5-0.7. Since early June she has been in the mid ones generally and even in the high ones to low twos in late June through mid July. Most recently on September 22, she was 1.4. On presentation this morning she was 1.6 with improvement to 1.3 later in the day. Also with 900 mg proteinuria at baseline in June. she was last week evaluated by [address] Gu in [facility] for hyponatremia. Her sodium runs generally around 130. Attributed presumably to low solute diet; pt fluid intake daily target moved from over 70oz daily to 36 oz daily. Her sodium here is 136. Allergies Allergy/AdvReac Type Severity Reaction Status Date / Time nickel Allergy Rash Verified 09/27/19 05:23 Home Medications Home Medications Medication Instructions Recorded Confirmed Type cholecalciferol (vitamin D3) 2,000 unit PO DAILY 12/20/18 09/27/19 History [Vitamin D3] lidocaine-prilocaine 1 ea TOPICAL DIRECTED 02/20/19 09/27/19 History acyclovir 400 mg PO BID 09/27/19 09/27/19 History Patient History Medical History (Updated 09/27/19 @ 20:06 by Maryellen Lugo MD, PhD) Cystocele Foot drop, left Leukemia ALL Renal insufficiency Sciatica (Chronic) Surgical History H/O allogeneic bone marrow transplant [place] present Family History Mother Thalassemia Father Multiple myeloma Other No significant family history Social History Smoking Status: Never smoker Second Hand Exposure: No; Hx Alcohol Use: No Hx Substance Use: No Preferred Language: Cymraes Communication Ability: Effective Maintenance Repairer Required: No Beliefs That Will Affect Care: None marital status: Current Living Situation: Spouse and Family Current Living Situation Comment: daughter and family with patient now Other Information That Helps Us Care for You: No Feels Safe at Home: Yes Safety Concerns: Feels Safe At This Time Review of Systems Review of Systems: All systems reviewed & are unremarkable except as noted in HPI & below Constitutional: + fever, + chills, + sweats, + weakness and + anorexia Respiratory: no cough and no dyspnea Gastrointestinal: + nausea; no vomiting and no diarrhea/loose stools Genitourinary: no dysuria, no urinary frequency and no urinary hesitancy Physical Exam Constitutional: well developed and + frail appearing; no acute distress Eyes: EOM intact bilaterally ENMT: Ears: no external ear abnormality Nose: no external nose abnormality Mouth: + dry oral mucous membranes Neck: no nuchal rigidity Respiratory: normal respiratory effort Auscultation: + diminished lung sounds Cardiovascular: RRR, no murmur, no edema Gastrointestinal (Abdomen): Inspection/Auscultation: normal bowel sounds Percussion/Palpation: abdomen soft; abdomen nontender Musculoskeletal: Extremities: strength 5/5 throughout Skin: no rashes, warm and dry Neurologic: berrios, fluent speech, fine resting LUE finger tremor Psychiatric: A+Ox3, euthymic affect Mood: + depressed mood Insight: good insight Judgement: good judgement Genitourinary: marbella present Results & Data Vital Signs (Past 12 Hours) Vital Signs Temp Pulse Pulse Pulse Resp BP BP 09/27/19 16:00 91 H 09/27/19 15:01 38.9 C H 93 H 18 09/27/19 10:41 36.5 C 83 19 09/27/19 09:00 74 09/27/19 08:09 36.8 C 77 18 109/62 09/27/19 07:42 73 16 115/71 09/27/19 06:31 77 17 98/63 L BP Pulse Ox 09/27/19 16:00 09/27/19 15:01 156/80 H 97 09/27/19 10:41 137/74 99 09/27/19 09:00 09/27/19 08:09 99 09/27/19 07:42 16 L 09/27/19 06:31 95 Laboratory Results 09/27/19 04:49 09/27/19 12:38 uacm >> 1+ protein, 5.o, yellow 1019; 5-10 epi; else bland Flu swab negative covid test negative Lyme disease titers and Anaplasma smears negative Diagnostic Findings head CT 1. There is no hemorrhage, mass effect, or evidence of acute territorial isch emia by CT criteria. 2. A ventricular shunt catheter is unchanged in position and ventricular caliber is unchanged from previous. cxr IMPRESSION: Atelectasis left base. Study is otherwise negative.
--- NOTE | 2019-09-27 19:16 | Electrocardiogram Report ---
Test Reason : Blood Pressure : / mmHG Vent. Rate : 084 BPM Atrial Rate : 084 BPM P-R Int : 144 ms QRS Dur : 072 ms QT Int : 384 ms P-R-T Axes : 022 007 017 degrees QTc Int : 453 ms Normal sinus rhythm Nonspecific T wave abnormality When compared with ECG of 20-FEB-2019 02:21, Nonspecific T wave abnormality now evident in Anterior leads Confirmed by Kilo Unger ([id number]) on 09/27/2019 7:16:22 PM Referred By: REFERRED SELF Confirmed By:Kilo Unger
[2019-09-27 20:43] LABS: BUN Creatinine Ratio 12.6 (10-20); Calcium 8.1 mg/dl (8.5-10.1); Creatinine Clr Calc Pharmacy 39.6 ml/min; Est GFR (African American) 50.7; Est GFR (Non-African American) 43.7; Potassium 3.5 mmol/L (3.5-5.1)
[2019-09-27] MEDS ORDERED: HEPARIN 100 UNIT/ML 5ML FLUSH FLUSH PRN (23:03)
[2019-09-28] MEDS: ACETAMINOPHEN 325 MG TAB PO PRN ×3 (03:20→18:59)
[2019-09-28 05:04] LABS: Creatinine Urine Random 61.2 mg/dl; Protein Creatinine Ratio Urine 0.6 (0-0.2); Total Protein Urine Random 36.4 mg/dl (0-11.9)
[2019-09-28] MEDS: SODIUM CHLORIDE 0.9% 1000ML 1,000 ML IV SCH (05:14)
[2019-09-28] MEDS: CEFEPIME 2,000 MG in SYRINGE 7.5 ML IV SCH ×2 (05:45→17:35)
[2019-09-28 05:52] LABS: Hematocrit (blood only) 22.8 % (37-47); Hemoglobin 7.9 g/dL (12.0-16.0); Mean Corpuscular Hemoglobin 39.5 pg (25-34); Mean Corpuscular Hgb Conc 34.6 g/dL (32-36); RDW Coefficient of Variation 15.7 % (11.5-14.5); RDW Standard Deviation 65.2 fL (36.4-46.3); White Blood Count 2.04 K/uL (4.8-10.8)
[2019-09-28 06:14] LABS: Estimated Average Glucose 88 mg/dl; Hemoglobin A1C 4.7 % (4.5-5.6)
[2019-09-28 06:17] LABS: BUN Creatinine Ratio 12.2 (10-20); Creatinine Clr Calc Pharmacy 41.6 ml/min; Est GFR (African American) 53.7; Est GFR (Non-African American) 46.3; Magnesium 1.8 mg/dl (1.8-2.4); Potassium 3.4 mmol/L (3.5-5.1)
[2019-09-28 06:18] LABS: Eosinophils # (auto) 0.11 K/uL (0-0.5); Eosinophils % (auto) 5.4 %; Immature Granulocytes # (auto) 0.06 K/uL (0.00-0.02); Immature Granulocytes % (auto) 2.9 %; Lymphocytes # (auto) 0.09 K/uL (1.2-3.4); Lymphocytes % (auto) 4.4 %; Macrocytosis Present; Mean Platelet Volume 8.1 fL (7.4-10.4); Monocytes # (auto) 0.15 K/uL (0.11-0.59); Monocytes % (auto) 7.4 %; Neutrophils # (auto) 1.63 K/uL (1.4-6.5); Neutrophils % (auto) 79.9 %; Platelet Count 35 K/uL (130-400); Poikilocytosis Present
[2019-09-28] MEDS ORDERED: POTASSIUM CHLORIDE 20 MEQ TABCR PO STA (07:09)
[2019-09-28] MEDS: CHOLECALCIFEROL 1,000 UNITS 25 MCG TAB PO SCH (07:42)
[2019-09-28] MEDS: POTASSIUM CHLORIDE / WTR 10 MEQ/100 ML PLCT IV SCH ×2 (07:42→08:45)
[2019-09-28] MEDS: ACYCLOVIR 400 MG TAB PO SCH (07:43)
[2019-09-28] MEDS ORDERED: VANCOMYCIN HCL 1,000 MG in SODIUM CHLORIDE 0.9% 250 ML IV SCH (08:00)
[2019-09-28] MEDS: INSULIN ASPART 100 UNITS/ML 3 ML PEN SC SCH ×3 (08:58→16:54)
--- NOTE | 2019-09-28 09:08 | Nephrology Progress Note ---
Date of Service September 28, 2019 Assessment & Plan (1) Neutropenic fever: -per primary service >> ? if any relation to recently tapered cyclosporine or to taking or to ? lack of opportunistic infection prophylaxis -- still not clear what she is to be taking and transplant pharmacist versus [facility] gonzalez may have best answer for this -on vanco and cefepime and NS at 100 mL hourly > cont abtx and change IVF as below >one of 4 cxs at admission positive >> ? contaminant; Dr Nix plans to discuss with [facility] >monitor vanco levels carefully and often -- did discuss with [facility] pharmacist and will check level prior to further dosing; had 1.5 gm yesterday and 1 gm this am. -on doxycycline also but may not need it given above coverage--no evidence of anaplasma on smear and lyme titers negative; discussed with Dr Nix -meningitis also on differential here given shunt, along with PNA, other opp ortunistic infection, GVHD -voiding trial/ remove tyson Present on Admission?: Yes (2) H/O allogeneic bone marrow transplant: -ensure she is on appropriate meds recommended by savannah (see TE from today in EPIC); she is convinced has completed course; Dr Dove aware -daily bmp Present on Admission?: Yes (3) History of SIADH: SIADH attributed to low solute diet; fluid limit tightened and sodium responded>> at this point sepsis therapy takes precedence clinically over sodium; not currently on fluid restriction and sodium wnl -recheck bmp daily -maintain eukalemia>> see below Present on Admission?: Yes (4) CKD (chronic kidney disease) stage 3, GFR 30-59 ml/min: her baseline creatinine since early June has been mid ones-she remains at this baseline; would at this point call her CKD 3 and have updated hx to reflect this; no TIERRA currently but high risk for same given neutropenic fever, labile BP. Hx of 900 mg daily proteinuria; sediment not particularly inflamed. does have electrolyte disorder today > not sodium issue but low K, hyperchloremia and low bicarb. already had 20 mEq po + 20 mEq IV K today. -repeat prot/creat ratio = 600 mg; no further intervention -stopped NS and started instead normosol same rate -daily bmp -cont nephrotoxin avoidance and close monitoring of vanco levels -strict I/O -voiding trial and remove tyson Present on Admission?: Yes Admission and Anticipated Discharge Date Admission Date: September 27, 2019 Subjective temp 38.3 at 0300, 38.9 at 1500 yesterday; SBP quite labile ranging 90s -140s. tremors more today; had 1.2L fluid urine retention and got tyson Review of Systems Review of Systems: All systems reviewed & are unremarkable except as noted in HPI & below Gastrointestinal: minimal po Physical Exam Constitutional: well developed and + frail appearing; no acute distress on RA Eyes: EOM intact bilaterally ENMT: Ears: no external ear abnormality Nose: no external nose abnormality Mouth: + dry oral mucous membranes Neck: no nuchal rigidity Respiratory: normal respiratory effort Auscultation: + diminished lung sounds Cardiovascular: RRR, no murmur, no edema Gastrointestinal (Abdomen): Inspection/Auscultation: normal bowel sounds Percussion/Palpation: abdomen soft; abdomen nontender Musculoskeletal: Extremities: strength 5/5 throughout Skin: no rashes, warm and dry Neurologic: tremor +; berrios, fluent speech Psychiatric: A+Ox3, euthymic affect Mood: + depressed mood Insight: good insight Judgement: good judgement Results & Data ([facility]) Vital Signs (Past 12 Hours) Vital Signs Temp Pulse Pulse Resp BP Pulse Ox 09/28/19 07:35 36.8 C 90 18 92/53 L 99 09/28/19 04:21 37.2 C 09/28/19 03:27 38.3 C H 98 H 18 113/67 98 09/27/19 23:51 37.2 C 90 16 147/75 H 99 09/27/19 23:48 90 Laboratory Results 09/28/19 05:26 09/28/19 05:26 blood cxs one of 4 bottles positive for GPC
[2019-09-28] MEDS: NORMOSOL-R 1,000 ML IV SCH ×2 (10:02→19:34)
[2019-09-28] MEDS ORDERED: FLUCONAZOLE 200 MG/5 ML UDP PO SCH (12:45)
--- NOTE | 2019-09-28 14:20 | Discharge Summary ---
Date of Service September 28, 2019 Admission HPI Per Admitting Provider DICTATED BY: Ervin Starks MD DATE OF ADMISSION: 09/27/2019 CHIEF COMPLAINT: Weakness, fever. 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 The postop course was complicated by diarrhea secondary to C. 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 She also received induction therapy prior to the transplant, which includes Cytoxan, cyclosporine. Postop course was also complicated by TIERRA requiring diuresis, bilateral pleural effusions, acute respiratory failure secondary to volume overload in a possible engraftment syndrome. The patient is no longer on steroids or cyclosporine. The patient's kidney function was fine until June 2019, then it fluctuated, currently around 1.7, and sodium has been around 129 to 131. Patient was recently seen on telemedicine by [facility] and was recommended for fluid restriction of 35 ounces per day . The patient also has history of iron deficiency anemia, lumbar degenerative disc disease, prediabetes, electrolyte abnormalities. Currently not on any chemo. Presents because of fever and weakness. The patient states since she is restricting fluids, she feels like she is dehydrated. She is feeling weak and tired at home and today she also developed fever, T-max was 101 degrees at home and she felt weak and slipped on to the floor and her got worried and was brought to the hospital. Currently resting comfortably and hemodynamically stable. In the ER, T max was 38.1, blood pressure is okay.She has pancytopenia with WBC of 1.87, which is around the same as outpatient too and hemoglobin of 8 and platelets of 51, which is almost similar to recent outpatient labs. Sodium of 136 and potassium of 3.2, creatinine of 1.6, which is baseline. Point of care lactic acid 1.8. Troponin was less than 0.015. Urinalysis was negative. Blood cultures were ordered and anaplasmosis screen ,Lyme screen and COVID-19 PCR are pending. The patient says a couple of weeks ago she had fever and went to [facility] and at that time also COVID test was done which was negative. The patient denies any headache, no blurred visions, no earache, no runny nose, no sore throat. No loss of sense of smell or taste. No cough, no nausea, no abdominal pain. Appetite is not that great. No diarrhea or constipation. No blood in stool or black stools. No burning micturition. No rash seen anywhere, no swelling in the legs. Ambulatory status is poor. She uses a walker. Denies any tick bites, but she states she has [place] in her backyard. Admission Exam Per Admitting Provider GENERAL: The patient is of moderate build, not in acute distress. VITAL SIGNS: T-max is 38.1, pulse is 77, respiratory rate 17, blood pressure 98/63, oxygen 95% on room air. HEENT: No pallor, no icterus. Pupils equal, round, reactive to light. Oral mucosa dry. NECK: No JVD, no neck masses. CARDIOVASCULAR: S1, S2 heard, regular rate and rhythm, no murmur, no gallop. RESPIRATORY SYSTEM: Normal AP diameter. No accessory muscle use. No wheezing, no crackles. ABDOMEN: Soft, bowel sounds present, nontender. No distention. CENTRAL NERVOUS SYSTEM: Cranial nerves II-XII grossly intact, nonfocal. EXTREMITIES: No edema, no erythema. Principal Diagnosis Gram-positive bacteremia, ongoing fever and weakness, pancytopenia, status post allogenic bone marrow transplant for ALL, TIERRA, a PORT in situ Discharge Exam Constitutional + ill appearing and + thin; no acute distress Eyes PERRL, conjunctivae normal, anicteric sclerae ENMT external ear and nose normal, oropharynx normal Neck trachea midline, no thyromegaly Respiratory normal respiratory effort; no respiratory distress Auscultation: lungs clear to auscultation bilaterally Cardiovascular Rate/Rhythm: regular rate and regular rhythm Heart Sounds: no murmur Extremities: + edema (Trace edema bilaterally) Gastrointestinal (Abdomen) Inspection/Auscultation: abdomen normal to inspection and normal bowel sounds; abdomen not distended Percussion/Palpation: abdomen soft Neurologic moves all extremities; no focal motor deficits Lymphatic no cervical or axillary lymphadenopathy Discharge Data Allergies Allergy/AdvReac Type Severity Reaction Status Date / Time nickel Allergy Rash Verified 09/27/19 05:23 Consultations 09/27/19 05:38 ED Decision to Admit Stat 09/27/19 08:10 Consult Case Management - Discharge Planning Routine Consult Nephrology Routine 09/27/19 10:16 Consult Nephrology Routine 09/28/19 12:37 Burn CD for patient Stat Ordered Studies 09/27/19 04:28 CT head/brain wo con Urgent Hospital Course (1) Fever: Presented with severe weakness and fever History of allogenic bone marrow transplantation for ALL last week of May 2019 Has been started with intravenous vancomycin and cefepime Lyme titers ,Anaplasmosis and COVID 19 have been negative No source of infection yet has UA and chest x-ray have been negative Awaiting blood cultures-1 out of 2 bottles grew gram-positive cocci in clusters, awaiting sensitivity Repeat urine has been sent for culture She is not looking any better today and feels terrible with extreme weakness and shivering She might have infection in the a-PORT , which might need to be taken out We will start Diflucan as per Dr. Wall We do not have any vascular surgeon and the patient seems to be high risk for ongoing infection without any ID service over here as well Case discussed with Dr. Wall who accepted transfer Discussed with the patient and she is agreeable to transfer (2) H/O allogeneic bone marrow transplant: Allogenic bone marrow transplant for ALL Received chemotherapy and radiation with post transplant complications of kidney and respiratory failure Require dialysis during that time Has been under care of Dr. Wall,robotic maintenance technician in [place] She will be transferred to [place] for continued care (3) Pancytopenia: Secondary to chemotherapy with Cytoxan-which is been tapering off (4) TIERRA (acute kidney injury): Presented with TIERRA with history of CKD Could be secondary to infection Has been getting intravenous fluid Neurology consulted Will get repeat PRP at around 1 PM and if worsening, will transfer the patient to [place] Creatinine is a little bit better today but the patient is not showing any improvement We will transfer the patient to [place] for continued care (5) History of SIADH: History of SIADH secondary to chemo medications Was on fluid restriction of 35 ounces daily Sodium seems to be reasonably stable at this time Is getting intravenous fluid for TIERRA Sodium level is normal DVT prophylaxis SCD Total Time Total Time Spent Total Time Spent (In Minutes): 40 minutes Discharge Plan Discharge Items Patient Disposition: Transfer Acute Care Hospital Reason For Visit: WEAKNESS,FEVER Discharge Diagnosis: Gram-positive bacteremia, ongoing fever and weakness, pancytopenia, status post allogenic bone marrow transplant for ALL, TIERRA, a PORT in situ Condition on Discharge: Fair Activity: Resume your previous activity Non-emergency contact: Primary Care Provider Call non-emergency contact if: you have any medication questions and your sy mptoms worsen Follow-up/Referrals: Nicolas Cervantes, [Primary Care Provider] - (Please make an appointment with your primary care physician within 7 days of discharge from the hospital) Diet: Carb Consistent or DM2 Addtl Attending Provider Instructions: The patient was transferred to [facility] for continued care. All of her inpatient medications were continued on transfer which are as follows: Current Inpatient Medications Acetaminophen (Tylenol) 650 mg PO Q4H PRN PRN Reason: Pain or Fever Stop: 10/27/19 08:09 Last Admin: 09/28/19 11:46 Dose: 650 mg Documented by: Acyclovir (Zovirax) 800 mg PO BID ORTEGA Stop: 10/27/19 08:59 Last Admin: 09/28/19 07:43 Dose: 800 mg Documented by: Dextrose (Dextrose 50%) 25 - 50 ml IV UD PRN; Protocol PRN Reason: Hypoglycemia Protocol Stop: 10/27/19 08:29 Glucagon (Glucagen) 1 mg IM UD PRN; Protocol PRN Reason: Hypoglycemia Protocol Stop: 10/27/19 08:29 Glucose (Glucose 40%) 15 - 30 gm PO UD PRN; Protocol PRN Reason: Hypoglycemia Protocol Stop: 10/27/19 08:29 Glucose (Dex4 Glucose) 4 - 8 tabs PO UD PRN; Protocol PRN Reason: Hypoglycemia Protocol Stop: 10/27/19 08:29 Heparin Sodium (Porcine) (Heparin Sod 100 Unit/Ml Flush) 5 ml FLUSH PRN PRN PRN Reason: Flush Stop: 10/27/19 23:02 Cefepime HCl 2,000 mg/ Syringe 20 mls @ 5.5 mls/min IV Q12H ORTEGA; Protocol Stop: 09/29/19 17:59 Last Admin: 09/28/19 05:45 Dose: 5.5 mls/min Documented by: Vancomycin HCl 1,000 mg/ (Sodium Chloride) 270 mls @ 125 mls/hr IV Q18H ORTEGA; Protocol Stop: 09/29/19 23:59 Parenteral Electrolytes (Normosol-R) 1,000 mls @ 100 mls/hr IV .Q10H ORTEGA Stop: 10/28/19 09:29 Last Admin: 09/28/19 10:02 Dose: 100 mls/hr Documented by: Insulin Aspart (Novolog Flexpen) 0 units SC ACHS ORTEGA Stop: 10/27/19 08:09 Last Admin: 09/28/19 11:57 Dose: Not Given Documented by: Lidocaine/Prilocaine (Emla 2.5% Crm) 1 ea EXT UD PRN PRN Reason: Pain Stop: 10/27/19 08:18 Miscellaneous (Carbohydrates For Hypoglycemia) 15 - 30 gm PO UD PRN PRN Reason: Hypoglycemia Treatment Stop: 10/27/19 08:29 Miscellaneous Information (Consult) 1 ea N/A UD PRN PRN Reason: Consult Stop: 10/27/19 08:09 Miscellaneous Information (Cefepime Consult Active) 1 ea N/A UD PRN PRN Reason: Consult Stop: 10/27/19 08:12 Nitroglycerin (Nitrostat) 0.4 mg SL UD PRN PRN Reason: Chest Pain Stop: 10/27/19 08:09 Ondansetron HCl (Zofran) 4 mg IV Q6H PRN PRN Reason: Nausea Stop: 10/27/19 08:09 Polyethylene Glycol (Miralax Powder Packet) 17 gm PO DAILY PRN PRN Reason: Constipation Stop: 10/27/19 08:09 Vitamin D (Vitamin D3) 2,000 units PO DAILY ORTEGA Stop: 10/27/19 08:59 Last Admin: 09/28/19 07:42 Dose: 2,000 units Documented by: Diflucan; 200 mg/day Pending Studies at Discharge: No Stand-Alone Forms: My [facility] Skilled Items Patient informed of condition?: Yes DNR: No Discharge Level of Care: Other Communicable Disease: No Discharge Prognosis: Deteriorating Lines: None Urinary Catheter: Yes Medications and DC Order Prescriptions: Continued lidocaine-prilocaine 2.5-2.5 % Kit 1 ea topical DIRECTED RF: 0 cholecalciferol (vitamin D3) [Vitamin D3] 1,000 unit Capsule 2,000 unit PO DAILY RF: 0 acyclovir 800 mg tablet 400 mg PO BID RF: 0 Discharge Orders: Discharge Order (Routine); Ordered 09/28/19 Ordered By: Joann Nix Admission Data Admit Date/Time: 09/27/19 06:35 Attending Provider: Joann Nix Admit Provider: Ervin Starks Primary Care Provider: Nicolas Cervantes Other Providers: Ervin Starks ; Maryellen Lugo ; Lavell Muse ; Winnie Hdz ; Bianca Beatty ; Nacho Mahoney
[2019-09-28] MEDS ORDERED: SODIUM CHLORIDE 0.9% 1000ML 500 ML IV ONE (15:32)
[2019-09-29] MEDS ORDERED: VANCOMYCIN HCL 1,000 MG in SODIUM CHLORIDE 0.9% 250 ML IV SCH (02:00)
--- NOTE | 2019-09-29 12:56 | Pharmacy Report ---
Pharmacy Progress Note - Date of Service September 29, 2019 - Progress Note Received call from Dr. Simmons ([facility] physician) requesting update to blood culture results. He confirmed he is currently taking care of the patient. I counseled that coag negative Staph not lugdunensis isolated from both the aerobic and anaerobic vials of one of the sets of blood cultures. The second set currently has no growth to date. He provided a fax number of , read back x1. I faxed the reports of both blood cultures. Fax confirmation received.
--- NOTE | 2019-10-07 20:48 | Coding Query ---
CODING QUERY To promote full compliance with coding requirements relating to patient care, provider participation is requested in all cases of navy diver uncertainty. Please assist us with the question(s) below: Coding Question(s): Acute Leukemia patient admitted with fever and pancytopenia, s/p chemo . Discharge Summary documents bacteremia as prin dx. PN and DS mention possible infection of existing port. Please document, if suspected or known, the etiology of the Bacteremia. Thanks for your help!! - ROSI Fuentes [facility] Physician's Response(s): Progress note in discharge summary clearly mentioned possible infection of the existing port. The port has to come out and that was the recent vision that the patient was sent to [place]. Principal Diagnosis: "that condition established after study, to be chiefly responsible for occasioning the admission of the patient to the hospital for care." Co-Existing Principal Diagnosis: "when two or more diagnoses equally meet the criteria for principal diagnosis as determined by the circumstances of admission, diagnostic work up, and/or therapy provided, and the Alphabetic Index, Tabular List, or another coding guideline does not provide sequencing direction, any one of the diagnoses may be sequenced first." "When the physician has documented what appears to be a current diagnosis in the body of the record, but has not included the diagnosis in the final diagnostic statement, the physician should be asked whether the diagnosis should be added." (Source Coding [facility] 2 QTR90. p3-4) [place]
== END 2019-09-28 19:56 | disposition short-term general hospital (02) | DRG 314 ==
LOC: ED 04:13 → 2S 06:35

== ENCOUNTER 2020-01-17 15:48 | Inpatient (IN) ==
[2020-01-17] MEDS ORDERED: SODIUM CHLORIDE 0.9% 250 ML IV PRN ×2 (16:40→17:40)
--- NOTE | 2020-01-17 17:04 | Emergency Department Note ---
History of Present Illness General Chief complaint: Hematuria Stated complaint: HEMATURIA Time Seen by Provider: 01/17/20 16:24 Source: patient and family (Spouse who is at the bedside) Mode of arrival: ambulatory Limitations: no limitations History of Present Illness Maximum Pain Intensity: 0 This patient comes in complaining of hematuria. 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 she is followed by a Dr. Fady Wall in [place]. She has been hospitalized twice recently in [place]. First is in September when she was septic and then went to rehab. Her port was removed at that time. In October, she had CMV virus and was started on valganciclovir and IVIG she has been tired and weak and went to rehab after then. She is been home for a week or so she had a Johnson catheter in for about 2 weeks when home nursing came and removed it today they noticed that she had bloody clots. Hemoglobin apparently was 6.8 as well. She is feels generally tired but has had no fever chills or cough no known exposure to Covid. No blood in her stool. She does not have any focal numbness or weakness no fall or trauma. After they remove the catheter around 3:00 she did have a diaper full of bloody clots. Her platelets were 51,000 last week. She is scheduled have a biopsy on her bone marrow done on . Home Medications Medication Instructions Recorded Confirmed Type acetaminophen 650 mg PO QID PRN 01/17/20 01/17/20 History albuterol sulfate [Proventil] 2.5 mg INHALATION Q4H PRN 01/17/20 01/17/20 History atovaquone [Mepron] 1,500 mg PO DAILY 01/17/20 01/17/20 History cholecalciferol (vitamin D3) 50 mcg PO DAILY 01/17/20 01/17/20 History citalopram 20 mg PO DAILY 01/17/20 01/17/20 History folic acid 1 mg PO DAILY 01/17/20 01/17/20 History lorazepam 0.5 mg PO UD PRN 01/17/20 01/17/20 History nystatin 5 ml PO QID 01/17/20 01/17/20 History ondansetron HCl 8 mg PO Q8H PRN 01/17/20 01/17/20 History potassium chloride 10 meq PO UD 01/17/20 01/17/20 History prednisone 5 mg PO DAILY 01/17/20 01/17/20 History thiamine HCl (vitamin B1) 100 mg PO DAILY 01/17/20 01/17/20 History valganciclovir 450 mg PO BID 01/17/20 01/17/20 History Allergies Allergy/AdvReac Type Severity Reaction Status Date / Time vancomycin Allergy Mild Rash Verified 01/17/20 22:06 nickel Allergy Rash Verified 09/27/19 05:23 Past Med/Surg History Medical History (Updated 01/17/20 @ 22:06 by Sebastian Duke MD) Adrenal insufficiency CKD (chronic kidney disease) stage 3, GFR 30-59 ml/min Cystocele Foot drop, left 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 Malnutrition Mood disorder Sciatica Upper motor neuron disease Surgical History (Updated 01/17/20 @ 22:06 by Sebastian Duke MD) H/O allogeneic bone marrow transplant Ommaya reservoir present S/P partial hysterectomy Family History Mother Thalassemia Father Multiple myeloma Other Diabetes Heart disease Social History (Updated 01/17/20 @ 20:06 by Genet Meyer PA-C) Smoking Status: Never smoker Second Hand Exposure: No; Hx Alcohol Use: No Hx Substance Use: No Preferred Language: Chinese Communication Ability: Effective Direct Service Professional Required: No Beliefs That Will Affect Care: None marital status: Current Living Situation: Spouse and Family Other Information That Helps Us Care for You: No Feels Safe at Home: Yes Assistive Devices: Cane, Walker and Wheelchair Review of Systems A total of 10 systems reviewed and were otherwise negative Physical Exam Vital Signs Vital Signs - 24 hr 01/17/20 15:50 01/17/20 17:04 01/17/20 17:14 Temperature 37.2 C Temperature Source Oral Pulse Rate 99 H 98 H 97 H Pulse Rate [Right Finger] Pulse Rate from SpO2 Sensor 97 H 97 H Respiratory Rate 16 16 19 Respiratory Effort / Characteristics Non-Labored Respiratory Depth Normal Blood Pressure 97/62 L 98/62 L Blood Pressure [Right Arm] Blood Pressure Mean 73 66 Blood Pressure Mean [Right Arm] Pulse Oximetry 100 99 95 Oxygen Delivery Method Room Air Sepsis Recent Fever Within 48 Hours No Sepsis New/Unexplained Change in Mental Status No Sepsis Action Taken by Nursing No Action Required 01/17/20 17:16 01/17/20 17:30 01/17/20 18:00 Temperature Temperature Source Pulse Rate 89 90 Pulse Rate [Right Finger] 91 H Pulse Rate from SpO2 Sensor 89 Respiratory Rate 20 15 18 Respiratory Effort / Characteristics Respiratory Depth Blood Pressure Blood Pressure [Right Arm] 98/62 L Blood Pressure Mean Blood Pressure Mean [Right Arm] 74 Pulse Oximetry 98 99 Oxygen Delivery Method Sepsis Recent Fever Within 48 Hours Sepsis New/Unexplained Change in Mental Status Sepsis Action Taken by Nursing 01/17/20 18:30 01/17/20 18:40 01/17/20 18:50 Temperature Temperature Source Pulse Rate 91 H 92 H 91 H Pulse Rate [Right Finger] Pulse Rate from SpO2 Sensor 91 H 91 H Respiratory Rate 18 17 15 Respiratory Effort / Characteristics Respiratory Depth Blood Pressure Blood Pressure [Right Arm] Blood Pressure Mean Blood Pressure Mean [Right Arm] Pulse Oximetry 98 98 Oxygen Delivery Method Sepsis Recent Fever Within 48 Hours Sepsis New/Unexplained Change in Mental Status Sepsis Action Taken by Nursing 01/17/20 19:00 01/17/20 19:10 01/17/20 19:20 Temperature Temperature Source Pulse Rate 94 H 92 H 95 H Pulse Rate [Right Finger] Pulse Rate from SpO2 Sensor 92 H 95 H Respiratory Rate 20 18 27 H Respiratory Effort / Characteristics Respiratory Depth Blood Pressure Blood Pressure [Right Arm] Blood Pressure Mean Blood Pressure Mean [Right Arm] Pulse Oximetry 100 98 Oxygen Delivery Method Sepsis Recent Fever Within 48 Hours Sepsis New/Unexplained Change in Mental Status Sepsis Action Taken by Nursing General: Well developed well nourished in no acute distress, breathing comfortably on room air. Normal speech HEENT: Normal cephalic atraumatic. Pupils are equal round and reactive to light. Extraocular movements are intact. Oropharynx is pink with moist mucous membranes. No swelling of the mouth lips or tongue. Neck: Supple with a midline trachea. No meningeal signs or stiffness, no JVD or bruits. No Stridor. Chest: Clear to auscultation bilaterally. No wheezes or rhonchi. No increased work of breathing. Heart: Regular rate and rhythm without murmurs or gallops. Abdomen: Soft nontender, nondistended without rebound guarding or rigidity. Extremities: No cyanosis clubbing or edema. No calf tenderness or assymetry Spine/Back. Non tender to palpation. No CVA tenderness Skin: Good turgor without rashes. Neurologic exam: Cranial nerves two through 12 are intact. Motor and sensation are intact and symmetrical throughout. Critical Care Time Critical Care Time: Yes Total Critical Care Time: 30 Due to the patient's need for emergent blood products and significant low hemoglobin as well as blood pressure on the low side at 90s, I have discussed the case with her benefits consulting analyst at [facility] as well as the admitting team and the blood bank and she required frequent reassessment and consent for blood transfusion, I have personally spent greater than 30 minutes of critical care time in the direct management of this patient. This includes bedside care, interpretation of diagnostic studies, and testing, discussion with consultants, patient, and family members, and other required patient management activities. This 30 minutes is in excess of all separately billable procedures. Medical Decision Making Differential Diagnosis Anemia, infection, hematuria, thrombocytopenia, sepsis, leukemia, stem cell transplant problem, medication side effect, CMV, [id number] disease Medical Records Attestation: I reviewed the patient's medical records. Home Medications Current Medication List: was personally reviewed by me Laboratory Data Attestation: I reviewed the patient's lab results. Result diagrams: 01/17/20 16:58 01/17/20 16:58 Lab Results 01/17/20 01/17/20 01/17/20 Range/Units 16:58 16:58 17:03 WBC 4.46 L (4.8-10.8) K/uL RBC 1.71 L (4.2-5.4) M/uL Hgb 6.1 L* (12.0-16.0) g/dL Hct 18.2 L* (37-47) % MCV 106.4 H (80-100) fL MCH 35.7 H (25-34) pg MCHC 33.5 (32-36) g/dL RDW Std Deviation 61.8 H (36.4-46.3) fL RDW Coeff of Julissa 16.1 H (11.5-14.5) % Plt Count 68 L (130-400) K/uL MPV 9.4 (7.4-10.4) fL Immature Gran % (Auto) 0.7 % Neut % (Auto) 67.9 % Lymph % (Auto) 27.6 % [place] % (Auto) 3.4 % Eos % (Auto) 0.2 % Baso % (Auto) 0.2 % Neut # (Auto) 3.03 (1.4-6.5) K/uL Lymph # (Auto) 1.23 (1.2-3.4) K/uL [place] # (Auto) 0.15 (0.11-0.59) K/uL Eos # (Auto) 0.01 (0-0.5) K/uL Baso # (Auto) 0.01 (0-0.2) K/uL Immature Gran # (Auto) 0.03 H (0.00-0.02) K/uL Polychromasia 1+ Hypochromasia Present Tear Drop Cells 1+ Sodium 132 L (136-145) mmol/L Potassium 3.7 (3.5-5.1) mmol/L Chloride 101 (98-107) mmol/L Carbon Dioxide 28 (21-32) mmol/L Anion Gap 3.0 (3-11) BUN 23 H (7-18) mg/dl Creatinine 0.69 (0.6-1.2) mg/dl Est Cr Clr Drug Dosing Not Reportable Est GFR ( Amer) 106.6 Est GFR (Non-Af Amer) 92.0 BUN/Creatinine Ratio 33.9 H (10-20) Glucose 113 H (70-99) mg/dl Calcium 8.8 (8.5-10.1) mg/dl Total Bilirubin 0.2 (0.2-1) mg/dl AST 35 (15-37) U/L ALT 55 (12-78) U/L Alkaline Phosphatase 181 H (45-117) U/L Total Protein 5.6 L (6.4-8.2) gm/dl Albumin 2.5 L (3.4-5.0) gm/dl Globulin 3.1 (2.5-4.0) gm/dl Albumin/Globulin Ratio 0.8 L (0.9-2) Lipase 108 (73-393) U/L SARS-CoV-2 Ag (Rapid) (Negative) Antibody ID Referred Crossmatch See Detail 01/17/20 01/17/20 Range/Units 19:06 19:07 WBC (4.8-10.8) K/uL RBC (4.2-5.4) M/uL Hgb (12.0-16.0) g/dL Hct (37-47) % MCV (80-100) fL MCH (25-34) pg MCHC (32-36) g/dL RDW Std Deviation (36.4-46.3) fL RDW Coeff of Julissa (11.5-14.5) % Plt Count (130-400) K/uL MPV (7.4-10.4) fL Immature Gran % (Auto) % Neut % (Auto) % Lymph % (Auto) % [place] % (Auto) % Eos % (Auto) % Baso % (Auto) % Neut # (Auto) (1.4-6.5) K/uL Lymph # (Auto) (1.2-3.4) K/uL [place] # (Auto) (0.11-0.59) K/uL Eos # (Auto) (0-0.5) K/uL Baso # (Auto) (0-0.2) K/uL Immature Gran # (Auto) (0.00-0.02) K/uL Polychromasia Hypochromasia Tear Drop Cells Sodium (136-145) mmol/L Potassium (3.5-5.1) mmol/L Chloride (98-107) mmol/L Carbon Dioxide (21-32) mmol/L Anion Gap (3-11) BUN (7-18) mg/dl Creatinine (0.6-1.2) mg/dl Est Cr Clr Drug Dosing Est GFR ( Amer) Est GFR (Non-Af Amer) BUN/Creatinine Ratio (10-20) Glucose (70-99) mg/dl Calcium (8.5-10.1) mg/dl Total Bilirubin (0.2-1) mg/dl AST (15-37) U/L ALT (12-78) U/L Alkaline Phosphatase (45-117) U/L Total Protein (6.4-8.2) gm/dl Albumin (3.4-5.0) gm/dl Globulin (2.5-4.0) gm/dl Albumin/Globulin Ratio (0.9-2) Lipase (73-393) U/L SARS-CoV-2 Ag (Rapid) Negative (Negative) Antibody ID Referred Cancelled Crossmatch Imaging Data Attestation: I personally reviewed and interpreted this imaging study as follows: MDM Narrative This patient comes in as described above. She was placed in room B7. She has had hematuria. She looks well. She was found to be anemic today. Her platelet been low recently. I did order IV access and for to be typed and crossed for 2 units of blood, I think she will likely need to be transfused. I did also tried to call her doctor Dr. Fady Wall but apparently the clinic is closed for the day. Her hemoglobin came back low again at 6.1. Platelets are also on the low side at 68. She has no significant lecture light or metabolic abnormality. I did discuss the case with the on-call benefits consulting analyst at [facility] and she recommended we keep the patient for transfusion and monitoring and most likely this was related to a viral infection in the urine or may be related to the chemo. I did order viral culture as she directed. I did order blood to be given that was irradiated and leukocyte poor. The blood bank called and will have a difficult time typing and crossing her due to her 2 blood types they were going to give her O- however we do not have any O- irradiated in the house. I asked him for suggestions they recommended that we could get it from the [facility] emergently with the next couple hours I think this is reasonable I told him to go ahead I also discussed with admitting team Dr. Narvaez and they are going to look at this as well. The patient has been consented for blood by myself and she will get transfused and be admitted. Continuous cardiac monitoring: An order was placed in the EMR for continuous cardiac monitoring. She was noted to be in normal sinus rhythm with a rate of 99 Impression & Plan Anemia, ALL (acute lymphoid leukemia) in remission, Hematuria, Thrombocytopenia, H/O stem cell transplant Discharge Plan Visit Data Chief Complaint: Hematuria Stated Complaint: HEMATURIA ED Provider: Sebastian Duke Discharge Problem: Anemia, ALL (acute lymphoid leukemia) in remission, Hematuria, Thrombocytopenia, H/O stem cell transplant Patient Disposition: Admitted As Inpatient Discharge Instructions Interventions: ED Discharge Assessment Last Done: 01/17/20 19:55 Discharge Problem: Anemia Qualifiers: Anemia type: iron deficiency Iron deficiency anemia type: unspecified iron de ficiency Qualified Code(s): D50.9 - Iron deficiency anemia, unspecified Hematuria Qualifiers: Hematuria type: gross Qualified Code(s): R31.0 - Gross hematuria
[2020-01-17 17:23] LABS: Hematocrit (blood only) 18.2 % (37-47); Hemoglobin 6.1 g/dL (12.0-16.0); Mean Corpuscular Hemoglobin 35.7 pg (25-34); Mean Corpuscular Hgb Conc 33.5 g/dL (32-36); Mean Corpuscular Volume 106.4 fL (80-100); Mean Platelet Volume 9.4 fL (7.4-10.4); Platelet Count 68 K/uL (130-400); RDW Coefficient of Variation 16.1 % (11.5-14.5); RDW Standard Deviation 61.8 fL (36.4-46.3); Red Blood Count 1.71 M/uL (4.2-5.4); White Blood Count 4.46 K/uL (4.8-10.8)
[2020-01-17 17:33] LABS: Alanine Aminotransferase 55 U/L (12-78); Albumin Level 2.5 gm/dl (3.4-5.0); Aspartate Aminotransferase 35 U/L (15-37); BUN Creatinine Ratio 33.9 (10-20); Blood Urea Nitrogen 23 mg/dl (7-18); Calcium 8.8 mg/dl (8.5-10.1); Carbon Dioxide 28 mmol/L (21-32); Chloride 101 mmol/L (98-107); Est GFR (African American) 106.6; Glucose 113 mg/dl (70-99); Lipase 108 U/L (73-393); Potassium 3.7 mmol/L (3.5-5.1); Sodium 132 mmol/L (136-145)
[2020-01-17 17:35] LABS: Albumin Globulin Ratio 0.8 (0.9-2); Alkaline Phosphatase 181 U/L (45-117); Bilirubin,Total 0.2 mg/dl (0.2-1); Globulin 3.1 gm/dl (2.5-4.0); Total Protein 5.6 gm/dl (6.4-8.2)
[2020-01-17 18:17] LABS: Basophils # (auto) 0.01 K/uL (0-0.2); Basophils % (auto) 0.2 %; Eosinophils # (auto) 0.01 K/uL (0-0.5); Eosinophils % (auto) 0.2 %; Hypochromasia Present; Immature Granulocytes # (auto) 0.03 K/uL (0.00-0.02); Immature Granulocytes % (auto) 0.7 %; Lymphocytes # (auto) 1.23 K/uL (1.2-3.4); Lymphocytes % (auto) 27.6 %; Monocytes # (auto) 0.15 K/uL (0.11-0.59); Monocytes % (auto) 3.4 %; Neutrophils # (auto) 3.03 K/uL (1.4-6.5); Neutrophils % (auto) 67.9 %; Polychromasia 1+; Tear Drop Cells 1+
--- NOTE | 2020-01-17 19:42 | History & Physical Report ---
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 -Tyson catheter placed for inability to void while at [facility], discharged home 2 weeks ago and developed hematuria with catheter in place 6 days ago -H&H 6.1/18.2. Hgb was 9.6 last Friday, prior to hematuria starting -Consented, type and crossed for 2u irradiated prbcs -Cause likely multifactorial - mechanical 03/21 tyson, pancytopenia worsened by valganciclovir ? ED provider discussed with Dr. Loomis of [facility] heme who recommends transfusion of blood products and close monitoring (cell: [phone]) -UA with reflex cultured ordered but uncollected -Diagnostic imaging pending -Urology consult placed (2) CMV (cytomegalovirus infection): Recurrent CMV infection, most recent lab work from 01/05/2020. Started on 14-day course of valganciclovir -CMV DNA quant blood and urine labwork ordered (3) Pancytopenia: History of chemo-induced pancytopenia, hgb now 6.1 (hgb 9.6 on 01/11), wbc 4.46, plt 68 -? Complication of valganciclovir -Monitor CBC closely (4) Acute lymphoblastic leukemia (ALL) in remission: (5) H/O allogeneic bone marrow transplant: Follows with hematology oncology in [place]. 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 Continue prednisone (7) Adrenal insufficiency: Continue prednisone. Consider stress dosing if vitals unstable or patient becomes febrile (8) Upper motor neuron disease: Admitted to [facility] in Nov for work up of progressive weakness. Has been improving slowly with therapy. Following with neuro onc in [place] -Wheelchair bound, requiring assistance with transfers and eating -Fall precautions, PT/OT for conditioning (9) History of SIADH: Sodium at baseline. Continue to monitor (10) CKD (chronic kidney disease) stage 3, GFR 30-59 ml/min: Kidney function at baseline. Continue to monitor with daily BMP (11) Mood disorder: Continue SSRI (12) Malnutrition: In setting of comorbidities, reduced appetite and tolerates mainly liquids -Ordered Boost BID, full liquids dietitian consult, continue thiamine, folic acid and vitamin D supplementation DVT Ppx: SCDs Code status: FULL PCP: Helen Dispo: Admitted to PCU. Discharge planning ordered Patient seen in collaboration with Dr. Narvaez. Please see addendum. 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 Patient w ith complicated health history over the past year, specifically since stem cell transplant in May 2019. Has been admitted to [facility] twice since then, most recently in November 2019 for weakness. Underwent extensive work-up at that time that revealed neuropathy on EMG but no myelopathy. LP, MRI brain and MRA were without abnormality. Was discharged to [facility] to continue conditioning and during this stay, patient had inability to void and a Tyson catheter was placed. Was discharged home with Tyson in place 2 weeks ago and developed hematuria 6 days ago. Urine has been reddish in color with some clots. Has also been some leakage around catheter site and some bladder spasm- like pain. Underwent voiding trial today with catheter removed around noon. Bladder pain subsided at this point, but due to the hematuria, was sent in by home nursing for further evaluation in the ED. Denies any hematuria in the past. Patient states she feels weak, which is her new baseline. Weakness has progressed to the point the patient is wheelchair-bound, requiring help with transfers and assistance with eating. Denies any fever or chills. No lightheadedness, visual changes, headache, confusion, chest pain, palpitations, shortness of breath, nausea, vomiting, abdominal pain, dysuria, diarrhea or constipation. Eats mainly liquid diet and has minimal appetite. Follows with hematology in [place]. Labwork from 01/04 showed recurrence of CMV and was directed to start valgancyclovir 450mg PO BID x 14 days. Allergies Allergy/AdvReac Type Severity Reaction Status Date / Time nickel Allergy Rash Verified 09/27/19 05:23 Home Medications Medication Instructions Recorded Confirmed Type acetaminophen 650 mg PO QID PRN 01/17/20 01/17/20 History albuterol sulfate [Proventil] 2.5 mg INHALATION Q4H PRN 01/17/20 01/17/20 History atovaquone [Mepron] 1,500 mg PO DAILY 01/17/20 01/17/20 History cholecalciferol (vitamin D3) 50 mcg PO DAILY 01/17/20 01/17/20 History citalopram 20 mg PO DAILY 01/17/20 01/17/20 History folic acid 1 mg PO DAILY 01/17/20 01/17/20 History lorazepam 0.5 mg PO UD PRN 01/17/20 01/17/20 History nystatin 5 ml PO QID 01/17/20 01/17/20 History ondansetron HCl 8 mg PO Q8H PRN 01/17/20 01/17/20 History potassium chloride 10 meq PO UD 01/17/20 01/17/20 History prednisone 5 mg PO DAILY 01/17/20 01/17/20 History thiamine HCl (vitamin B1) 100 mg PO DAILY 01/17/20 01/17/20 History valganciclovir 450 mg PO BID 01/17/20 01/17/20 History Past Med/Surg History Medical History (Updated 01/17/20 @ 20:24 by Genet Meyer PA-C) Adrenal insufficiency CKD (chronic kidney disease) stage 3, GFR 30-59 ml/min Cystocele Foot drop, left 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 Malnutrition Mood disorder Sciatica Upper motor neuron disease Surgical History (Updated 01/17/20 @ 20:05 by Genet Meyer PA-C) H/O allogeneic bone marrow transplant Ommaya reservoir present S/P partial hysterectomy Family History Mother Thalassemia Father Multiple myeloma Other Diabetes Heart disease Social History (Updated 01/17/20 @ 20:06 by Genet Meyer PA-C) Smoking Status: Never smoker Second Hand Exposure: No; Hx Alcohol Use: No Hx Substance Use: No Preferred Language: Citizen Of [place] Communication Ability: Effective Cytogenetic Technologist Required: No Beliefs That Will Affect Care: None marital status: Current Living Situation: Spouse and Family Other Information That Helps Us Care for You: No Feels Safe at Home: Yes Assistive Devices: Cane, Walker and Wheelchair Review of Systems Review of Systems: At least ten systems reviewed and negative except as noted in the HPI. Physical Exam Physical Exam: General Appearance: vitals as above, NAD, chronically ill appearing, cachectic, pale, conversing without issue Head: normocephalic, atraumatic Eyes: normal inspection, PERRL, conjunctivae normal, anicteric sclerae ENT: external ear and nose normal, dry mucous membranes of oropharynx Neck: normal visual inspection, trachea midline, no thyromegaly Respiratory: normal respiratory effort, lungs clear to auscultation, no wheeze, rales, rhonchi. No accessory muscle use Cardiovascular: regular rate, rhythm, no murmur appreciated, normal peripheral pulses, no BLE edema. Vessels: no JVD Chest: normal inspection of chest Abdomen/GI: normal bowel sounds, soft, nontender, no hepatosplenomegaly Extremities/Musculoskeletal: no cyanosis or clubbing, extremities motor strength 5/5 Neurologic: PERRL, EOMI, accommodation nl, no face palsy, no dysarthria, CN's II-XI intact bilaterally and moves all extremities Psychiatric: A+Ox3, euthymic affect Skin: no rashes, pale, warm/dry Results & Data Results & Data ([facility]) Vital Signs (Past 12 Hours) Vital Signs Temp Pulse Pulse Resp BP BP Pulse Ox 01/17/20 18:30 91 H 18 98 01/17/20 18:00 90 18 99 01/17/20 17:30 89 15 01/17/20 17:16 91 H 20 98/62 L 98 01/17/20 17:14 97 H 19 95 01/17/20 17:04 98 H 16 98/62 L 99 01/17/20 15:50 37.2 C 99 H 16 97/62 L 100 Laboratory Results Short CBC 01/17/20 01/17/20 Range/Units 16:58 17:03 WBC 4.46 L (4.8-10.8) K/uL Hgb 6.1 L* (12.0-16.0) g/dL Hct 18.2 L* (37-47) % Plt Count 68 L (130-400) K/uL Neut % (Auto) 67.9 % Crossmatch See Detail BMP 01/17/20 16:58 Sodium 132 L Potassium 3.7 Chloride 101 Carbon Dioxide 28 BUN 23 H Creatinine 0.69 Glucose 113 H Calcium 8.8 Liver Function 01/17/20 Range/Units 16:58 Total Bilirubin 0.2 (0.2-1) mg/dl AST 35 (15-37) U/L ALT 55 (12-78) U/L Alkaline Phosphatase 181 H (45-117) U/L Albumin 2.5 L (3.4-5.0) gm/dl Code Status & VTE Plan VTE Prophylaxis Plan VTE Prophylaxis will be ordered: Yes Supervising Physician Co-Signing Physician Notes HISTORY: Record reviewed. Patient interviewed and examined in ED. Care coordinated with Genet Meyer PA-C. Please refer to her documentation for complete history. 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 Recently hospitalized at [facility] for evaluation of neurologic symptoms, then transferred to [facility] for rehab. Tyson catheter inserted for urinary retention. Discharged to home. Developed gross hematuria several days ago that has worsened. No fever or flank pain. Tyson cath removed today around noon for voiding trial. Weak. No fever, cough, SOB. EXAM: General- no distress Lungs- clear to auscultation; no respiratory distress Cardiovascular- RRR; III. sys murmur LSB and base; no gallop; no JVD; trace pretibial edema Abdomen- + bowel sounds, soft, nontender Extremities- no cyanosis; no calf tenderness Neuro- alert, oriented Skin- warm & dry DATA: Hgb 6.1, MCV 106 WBC 4460, ANC 3030 Plts 68,000. Na 132 BUN 23, creat 0.69 Total BR 0.2, AST 35, ALT 55, alk phos 181 Other lab studies as noted. 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 Transfuse to maintain adequate H/H. GROSS HEMATURIA Differential diagnosis includes Tyson trauma, infection, other etiologies. Urine culture obtained 01/[address] abdomen and pelvis. Consult Urology. MRSA UTI Urine culture obtained 01/13 growing MRSA. Allergic to vancomycin. Rx with daptomycin until better, then consider oral Rx with doxy. Contact precautions. ALL, S/P STEM CELL TRANSPLANT Management per Heme / Onc at [facility]. THROMBOCYTOPENIA Secondary to chemo. No need for platelet transfusion at this time. CMV Continue course of valganciclovir. HISTORY GRAFT VS HOST Continue prednisone. ADRENAL INSUFFICIENCY May be secondary to CMV or steroid therapy. Continue prednisone. Please refer to TERI Meyer's documentation for discussion of other issues.
[2020-01-17] MEDS ORDERED: ACETAMINOPHEN 325 MG TAB PO PRN (20:38)
[2020-01-17] MEDS ORDERED: ALBUTEROL 0.083% NEBU SOLN 3 ML VIAL INH PRN (20:38)
[2020-01-17] MEDS ORDERED: ONDANSETRON INJ 2 MG/ML 2 ML VIAL IV PRN (20:38)
[2020-01-17] MEDS ORDERED: POLYETHYLENE (MIRALAX) 17 GM PACK PO PRN (20:38)
[2020-01-17] MEDS: POTASSIUM CHLORIDE 10 MEQ TABCR PO SCH (22:19)
[2020-01-17] MEDS: NYSTATIN SUSP 500,000 U/5 ML UDC PO SCH (22:19)
[2020-01-17] MEDS ORDERED: IOVERSOL 100ml IV ONE (22:33)
[2020-01-17] MEDS: DAPTOmycin 250 MG in SYRINGE 0 ML IV SCH (23:20)
--- NOTE | 2020-01-18 07:22 | CT Scan Report ---
CT abd pelvis IV con only CLINICAL HISTORY: Hematuria, urinary tract infection. COMPARISON STUDY: None. TECHNIQUE: The patient was scanned in a dynamic helical fashion during intravenous administration of 93 cc of Optiray 320 A dose lowering technique was utilized adhering to the principles of ALARA. CT DOSE: 280.13 mGy.cm FINDINGS: Lower chest: There is minor right basilar atelectasis Liver: The contrast-enhanced liver is normal in size, contour, and attenuation. There is no intrahepa tic biliary ductal dilatation. The hepatic veins and portal veins are patent. Gallbladder: Unremarkable. Spleen: Normal in size and attenuation. Pancreas: Unremarkable. Adrenal glands: Unremarkable. Kidneys: There are no solid renal masses. There is a 5 mm left renal hypodensity likely representing a cyst. There are no perinephric fluid collections. There is no hydronephrosis. Bowel: There are no transition zones to indicate bowel obstruction. There is no evidence of acute div erticulitis. There is no evidence of acute appendicitis. There is rectal and sigmoid wall thickening. Peritoneum: There is no intraperitoneal free air or abdominal ascites. There are small fat-containing inguinal hernias. Vasculature: The abdominal aorta is normal in course and caliber. Adenopathy: None. Pelvic viscera: The uterus is surgically absent. There is bladder wall thickening. There is a droplet of air within the bladder possibly iatrogenic. There is dependent debris within the bladder versus a bladder base mass. This measures 35 x 24 x 16 mm Skeletal structures: No destructive osseous lesions are seen. IMPRESSION: 1. Droplet of air within the bladder, possibly iatrogenic 2. Bladder wall thickening and 35 x 24 x 16 mm bladder base opacity. This could represent infectious debris, or a true bladder base mass. Clinical correlation and follow-up will be necessary 3. No evidence of bowel obstruction. No evidence of free air 4. Rectosigmoid wall thickening. The findings are suspicious for a proctocolitis. ACT 112: Negative or not required by law. Electronically signed by: Familia Mckeon M.D. 01/18/2020 7:21 AM
[2020-01-18 07:42] LABS: Hematocrit (blood only) 22.5 % (37-47); Hemoglobin 7.7 g/dL (12.0-16.0); Mean Corpuscular Hemoglobin 32.2 pg (25-34); Mean Corpuscular Hgb Conc 34.2 g/dL (32-36); Mean Corpuscular Volume 94.1 fL (80-100); Mean Platelet Volume 9.3 fL (7.4-10.4); Platelet Count 58 K/uL (130-400); RDW Coefficient of Variation 23.6 % (11.5-14.5); RDW Standard Deviation 76.3 fL (36.4-46.3); Red Blood Count 2.39 M/uL (4.2-5.4); White Blood Count 3.41 K/uL (4.8-10.8)
[2020-01-18 07:53] LABS: Basophils # (auto) 0.02 K/uL (0-0.2); Basophils % (auto) 0.6 %; Eosinophils # (auto) 0.07 K/uL (0-0.5); Eosinophils % (auto) 2.1 %; Immature Granulocytes # (auto) 0.02 K/uL (0.00-0.02); Immature Granulocytes % (auto) 0.6 %; Lymphocytes # (auto) 1.13 K/uL (1.2-3.4); Lymphocytes % (auto) 33.1 %; Monocytes # (auto) 0.14 K/uL (0.11-0.59); Monocytes % (auto) 4.1 %; Neutrophils # (auto) 2.03 K/uL (1.4-6.5); Neutrophils % (auto) 59.5 %
[2020-01-18] MEDS: NYSTATIN SUSP 500,000 U/5 ML UDC PO SCH ×4 (07:59→20:52)
[2020-01-18] MEDS: ATOVAQUONE 750 MG/5 ML UDC PO SCH (07:59)
[2020-01-18] MEDS: POTASSIUM CHLORIDE CRTAB 20 MEQ TABCR PO SCH (07:59)
[2020-01-18] MEDS: predniSONE 5 MG TAB PO SCH (08:00)
[2020-01-18] MEDS: THIAMINE HCL 100 MG TAB PO SCH (08:00)
[2020-01-18] MEDS: FOLIC ACID 1 MG TAB PO SCH (08:00)
[2020-01-18] MEDS: CHOLECALCIFEROL 1,000 UNITS 25 MCG TAB PO SCH (08:00)
[2020-01-18] MEDS: CITALOPRAM 20 MG TAB PO SCH (08:00)
--- NOTE | 2020-01-18 08:10 | XRay Report ---
XR chest 1V portable CLINICAL HISTORY: Admission chest x-ray COMPARISON STUDY: 09/27/2019 FINDINGS: The right-sided Mediport catheter has been removed. The heart is normal in size. There is n o failure. There is no focal pulmonary consolidation. There are no pleural effusions. There is no pne umothorax.[ IMPRESSION: No active disease in the chest. ACT 112: Negative or not required by law. Electronically signed by: Familia Mckeon M.D. 01/18/2020 8:09 AM
[2020-01-18 08:17] LABS: Calcium 8.8 mg/dl (8.5-10.1); Creatinine Clr Calc Pharmacy 77.5 ml/min; Est GFR (African American) 108.2; Est GFR (Non-African American) 93.4; Potassium 3.4 mmol/L (3.5-5.1)
--- NOTE | 2020-01-18 10:43 | Urology Consultation ---
Date of Consultation January 18, 2020 Assessment & Plan (1) Gross hematuria: (2) Anemia: 64 year-old female patient, with multiple comorbidities, admitted with anemia, gross hematuria, and UTI. -Patient with several day history of gross hematuria, noted after tyson catheter placement. -Plan of care reviewed with Dr. Frederick. -Currently afebrile. -Labs reviewed - creatinine normal, hemoglobin improved status post blood transfusion, remains anemic. -CT abd/pelvis reviewed and notable for bladder wall thickening at bladder base - possible clot/debris versus bladder mass. -Will check post void residual to ensure she is not retaining. -Make NPO and keep samples of voided urine for visualization. -Recommend supportive care and continued antibiotic therapy for UTI. -Recheck H&H in addition to PT/INR/PTT this evening, orders placed. -Plan to reassess patient this afternoon with repeat labs. -Will determine need for emergent cystoscopy at that time depending on clinical progression. -Continue to follow closely while inpatient. -Update provided to primary team, prior records will be printed for review. Supervising Physician Co-Signing Physician Notes Pt admitted with several weeks of gross hematuria which started a week after it was placed . None previously . Spoke with for 30 minutes getting a history as the patient for the past month has had confusion of unknown origin. She had her catheter removed and she voided clots yesterday and today at noon . Recent pvr is 143 cc . Pt comfortable and unable to void. Her hbg was 6.1 on admission and 7.7 after 2 units at 7 am and 7.5 at 430 pm . Spoke with hospitalist and will give clear liquids tonite then NPO and will give 2 more units . Will add on for possible cysto clot evacuation and fulguration if bleeding persists. Blood wont be available until later tonite. consented to procedure and agreed waiting to give blood made sense. 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 Hematuria initially started roughly one week ago. Past medical and surgical history reviewed. Patient with history of stem cell transplant in May 2019. She unfortunately has been [facility] x2 since stem cell transplant. Per chart review, in October, she had CMV virus and was started on Valganciclovir and IVIG. [place] [facility] [place] in November, secondary to weakness. She underwent extensive evaluation at that time. Lumbar puncture, brain MRI and MRA without significant abnormality. She was discharged to [facility] and per the patient, was unable to void. A tyson catheter was placed at that time. Patient had some leaking around catheter and associated bladder spasms. Available records show hematuria was noted in catheter bag by home nursing. Catheter was removed yesterday around noon. Due to gross hematuria, she was sent to ER for further evaluation. Urology consulted for evaluation of gross hematuria. Patient reports she has not followed with a urologist in the past. Denies prior history of gross hematuria. Chart review: Patient afebrile. Blood pressure this morning 111/69 Wbc 3.41 Hgb 7.7 (previously 6.1) - received 2 units PRBC. Creatinine 0.66 Urinalysis 01/05 - nitrate positive, +1 leukocytes, >30 wbc, >30 rbc, 4+ bacteria. Urine culture 01/05 positive for Staph Aureus MRSA Urine culture 01/13 positive for Staph Aureus MRSA Urine BK virus pending. Imaging: CT abd/pelvis with IV contrast - IMPRESSION: 1. Droplet of air within the bladder, possibly iatrogenic 2. Bladder wall thickening and 35 x 24 x 16 mm bladder base opacity. This could represent infectious debris, or a true bladder base mass. 3. No evidence of bowel obstruction. No evidence of free air 4. Rectosigmoid wall thickening. The findings are suspicious for a proctocolitis. Patient reports overall she is feeling "slightly better" since hospital admission and receiving blood transfusion. She does note continued hematuria, reports her urine color as "red". Currently denies dysuria. Denies significant frequency/urgency. Feels she is emptying her bladder overall. No bladder pain or pressure. Denies abdominal or flank pain. Denies fevers or chills. Denies nausea or vomiting but does note decreased appetite. IV Daptomycin ordered by primary team. Did have OT evaluation today. Not currently on anticoagulants. Has had chemotherapy in the past - she is unsure of chemotherapy drug and unsure of when she last received. Denies additional urologic concerns today. Allergies Allergy/AdvReac Type Severity Reaction Status Date / Time vancomycin Allergy Mild Rash Verified 01/17/20 22:06 nickel Allergy Rash Verified 09/27/19 05:23 Home Medications Medication Instructions Recorded Confirmed Type acetaminophen 650 mg PO QID PRN 01/17/20 01/17/20 History albuterol sulfate [Proventil] 2.5 mg INHALATION Q4H PRN 01/17/20 01/17/20 History atovaquone [Mepron] 1,500 mg PO DAILY 01/17/20 01/17/20 History cholecalciferol (vitamin D3) 50 mcg PO DAILY 01/17/20 01/17/20 History citalopram 20 mg PO DAILY 01/17/20 01/17/20 History folic acid 1 mg PO DAILY 01/17/20 01/17/20 History lorazepam 0.5 mg PO UD PRN 01/17/20 01/17/20 History nystatin 5 ml PO QID 01/17/20 01/17/20 History ondansetron HCl 8 mg PO Q8H PRN 01/17/20 01/17/20 History potassium chloride 10 meq PO UD 01/17/20 01/17/20 History prednisone 5 mg PO DAILY 01/17/20 01/17/20 History thiamine HCl (vitamin B1) 100 mg PO DAILY 01/17/20 01/17/20 History valganciclovir 450 mg PO BID 01/17/20 01/17/20 History Patient History Medical History Adrenal insufficiency CKD (chronic kidney disease) stage 3, GFR 30-59 ml/min Cystocele Foot drop, left 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 Malnutrition Mood disorder Sciatica Upper motor neuron disease Surgical History H/O allogeneic bone marrow transplant Ommaya reservoir present S/P partial hysterectomy Family History Mother Thalassemia Father Multiple myeloma Other Diabetes Heart disease Social History Smoking Status: Never smoker Second Hand Exposure: No; Hx Alcohol Use: No Hx Substance Use: No Preferred Language: Macedonian Communication Ability: Impaired Branch General Manager Required: No Beliefs That Will Affect Care: None marital status: Current Living Situation: Spouse and Family Other Information That Helps Us Care for You: No Feels Safe at Home: Yes Assistive Devices: Walker Review of Systems Constitutional: as per Subjective / HPI; no fever and no chills Eyes: no problem reported Ear, Nose, Mouth, Throat: no problem reported Respiratory: no cough and no dyspnea Cardiovascular: no chest pain and no edema Gastrointestinal: as per Subjective / HPI; no nausea and no vomiting Decreased appetite. Genitourinary: as per Subjective / HPI and + hematuria Musculoskeletal: as per Subjective / HPI; no back pain Neurologic: + generalized weakness Endocrine: + fatigue Hematologic / Lymphatic: no easy bleeding and no easy bruising Physical Exam Constitutional: + frail appearing, cooperative and comfortable; no acute distress Appears chronically ill. ENMT: Ears: no hearing impairment Nose: no external nose abnormality Neck: normal visual inspection and trachea midline Respiratory: normal respiratory effort and able to speak in complete sentences; no respiratory distress and no audible wheezes Cardiovascular: Extremities: no calf tenderness and no edema Gastrointestinal (Abdomen): Inspection/Auscultation: abdomen normal to inspection; abdomen not distended Percussion/Palpation: abdomen soft; abdomen nontender and no guarding Musculoskeletal: Moves all extremities without difficulty. Skin: No visible rashes, lesions, or wounds noted. Neurologic: moves all extremities and awake + tremor noted to bilateral upper extremities. Psychiatric: Orientation: alert, oriented x 3 and cooperative Affect: + flat affect Genitourinary: no CVA tenderness Urine not able to be visualized during exam. Results & Data ([facility]) Vital Signs (Past 12 Hours) Vital Signs Temp Pulse Pulse Resp BP BP Pulse Ox 01/18/20 08:00 36.9 C 81 20 111/69 98 01/18/20 07:34 88 01/18/20 05:03 36.8 C 83 16 100/66 98 01/18/20 04:41 36.8 C 87 16 99/63 L 98 01/18/20 03:41 36.7 C 80 16 104/68 95 01/18/20 03:11 36.7 C 78 16 91/57 L 96 01/18/20 02:56 36.8 C 71 93/61 L 96 01/18/20 02:40 36.8 C 91 H 16 111/69 97 01/18/20 01:43 36.8 C 87 16 99/65 L 98 01/18/20 01:18 36.8 C 100 H 16 105/62 97 01/18/20 01:12 36.8 C 78 16 99/67 L 98 01/18/20 00:24 36.5 C 92 H 18 104/68 98 01/18/20 00:18 36.9 C 84 16 98/66 L 99 01/17/20 23:48 36.9 C 83 89/58 L 99 01/17/20 23:37 87 01/17/20 23:33 36.9 C 89 16 95/55 L 97 01/17/20 23:06 36.6 C 93 H 16 94/59 L 99 PG Care Time/CCT Total # of Minutes Spent Total Time Spent with Patient: Total time spent is greater than 50% in coordination of care (as documented) at patient's floor/unit and/or counseling patient: Coding Level of Care Code 51292 Inpt Consult Level 4 Diagnoses Gross hematuria R31.0 Anemia D50.9 Anemia type: iron deficiency Iron deficiency anemia type: unspecified iron deficiency (1) Anemia Anemia type: iron deficiency Iron deficiency anemia type: unspecified iron deficiency Qualified Code(s): D50.9 - Iron deficiency anemia, unspecified
--- NOTE | 2020-01-18 12:44 | Hospitalist Progress Note ---
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 as per admission team "Tyson catheter placed for inability to void while at [facility], discharged home 2 weeks ago and developed hematuria with catheter in place 6 days ago -H&H 6.1/18.2. Hgb was 9.6 last Friday, prior to hematuria starting -Consented, type and crossed for 2u irradiated prbcs -Cause likely multifactorial - mechanical 2/2 tyson, pancytopenia worsened by valganciclovir ? ED provider discussed with Dr. Loomis of [facility] heme who recommen ds transfusion of blood products and close monitoring (cell: [phone])" -admission CT Abdomen/Pelvis 01/17/2020 "1. Droplet of air within the bladder, possibly iatrogenic 2. Bladder wall thickening and 35 x 24 x 16 mm bladder base opacity. This could represent infectious debris, or a true bladder base mass. Clinical correlation and follow-up will be necessary 3. No evidence of bowel obstruction. No evidence of free air 4. Rectosigmoid wall thickening. The findings are suspicious for a proctocolitis." 01/18/2020: -Patient seen and examined in the bed. No tyson. She denies any hematuria today - her blood counts are stable after her blood transfusions on 01/17/2020 admission day (2 PRBC). No abdomen pain. no vomiting. no dizziness. no headache. she has some tremors of upper extremities that she says are from neuropathy and not new for her. Patient denies other symptoms today on review of systems. she was seen by urology today. Hospitalist received call from [facility] urology service that they are now reconsidering the cystoscopy plans (2) CMV (cytomegalovirus infection): -Recurrent CMV infection, most recent lab work from 01/05/2020 and was Started on 14-day course of valganciclovir, CMV DNA quant blood labs were drawn, not currently on any valganciclovir on this admission (3) Pancytopenia: -History of chemo-induced pancytopenia, hgb now 6.1 (hgb 9.6 on 01/11), wbc 4.46, plt 68 on admission -the supposition that this could be medication induced is possible but given her history of risk factors of being immunocompromised (history of ALL, history of bone marrow transplant, CMV infections, hematuria) it is difficult to pin point 1 underlying factor (4) Acute lymphoblastic leukemia (ALL) in remission: (5) H/O allogeneic bone marrow transplant: -Follows with hematology oncology in [place]. 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 Continue home dose prednisone of 5 mg daily (7) Adrenal insufficiency: -Continue prednisone 5 mg daily (8) History of SIADH: -currently serum sodium are acceptable (9) CKD (chronic kidney disease) stage 3, GFR 30-59 ml/min: -monitor creatinine (10) Mood disorder: -Continue SSRI (11) Upper motor neuron disease: - she was admitted to [facility] in November for work up of progressive weakness. Has been improving slowly with therapy. Following with Neuro Oncology in [place] -Wheelchair bound, requiring assistance with transfers and eating -Fall precautions, PT/OT for conditioning (12) Malnutrition: -Ordered Boost BID, full liquids dietitian consult, continue thiamine, folic acid and vitamin D supplementation -01/18/2020 patient want diet advance from full liquids but currently NPO as requested by Urology team DVT Ppx: SCDs Code status: FULL PCP: Helen Admission and Anticipated Discharge Date Admission Date: January 17, 2020 Subjective Patient seen and examined in the bed. No tyson. She denies any hematuria today - her blood counts are stable after her blood transfusions on 01/17/2020 admission day (2 PRBC). No abdomen pain. no vomiting. no dizziness. no headache. she has some tremors of upper extremities that she says are from neuropathy and not new for her. Patient denies other symptoms today on review of systems. she was seen by urology today. Review of Systems Review of Systems: All systems reviewed & are unremarkable except as noted in Subjective Physical Exam Constitutional: comfortable Eyes: PERRL, conjunctivae normal, anicteric sclerae EOM intact bilaterally ENMT: external ear and nose normal, oropharynx normal Neck: normal visual inspection Respiratory: normal respiratory effort, lungs clear to auscultation Cardiovascular: Rate/Rhythm: regular rate Gastrointestinal (Abdomen): normal bowel sounds, soft, nontender, no hepatosplenomegaly Musculoskeletal: Head/Neck/Chest: normocephalic and head atraumatic Neurologic: PERRL, EOMI, accommodation nl, no face palsy, no dysarthria Psychiatric: Orientation: alert Results & Data Results & Data ([facility]) Vital Signs (Past 12 Hours) Vital Signs Temp Pulse Pulse Resp BP BP Pulse Ox 01/18/20 12:00 37.1 C 84 20 106/68 93 01/18/20 08:00 36.9 C 81 20 111/69 98 01/18/20 07:34 88 01/18/20 05:03 36.8 C 83 16 100/66 98 01/18/20 04:41 36.8 C 87 16 99/63 L 98 01/18/20 03:41 36.7 C 80 16 104/68 95 01/18/20 03:11 36.7 C 78 16 91/57 L 96 01/18/20 02:56 36.8 C 71 93/61 L 96 01/18/20 02:40 36.8 C 91 H 16 111/69 97 01/18/20 01:43 36.8 C 87 16 99/65 L 98 01/18/20 01:18 36.8 C 100 H 16 105/62 97 01/18/20 01:12 36.8 C 78 16 99/67 L 98
[2020-01-18 14:41] LABS: Appearance Urine Cloudy (Clear); Bilirubin Urine Negative (Negative); Blood Urine 3+ (Negative); Color Urine Red; Glucose Urine UA Negative (Negative); Ketones Urine Negative (Negative); Leukocyte Esterase Urine Negative (Negative); Nitrite Urine Negative (Negative); Protein Urine 3+ (Negative); Urobilinogen Urine Negative (Negative)
[2020-01-18 14:42] LABS: Sulfosalicylic Acid Urine Positive (Negative)
[2020-01-18 14:44] LABS: Bacteria Urine Negative (Negative); Epithelial Cell Urine 0-5 /lpf (0-5); RBC Urine >30 /hpf (0-4); WBC Urine 0-5 /hpf (0-5)
[2020-01-18 16:45] LABS: Hematocrit (blood only) 21.8 % (37-47); Hemoglobin 7.5 g/dL (12.0-16.0); Mean Corpuscular Hemoglobin 32.2 pg (25-34); Mean Corpuscular Volume 93.6 fL (80-100); RDW Coefficient of Variation 24.3 % (11.5-14.5); RDW Standard Deviation 78.4 fL (36.4-46.3); Red Blood Count 2.33 M/uL (4.2-5.4); White Blood Count 3.39 K/uL (4.8-10.8)
[2020-01-18 16:57] LABS: Partial Thromboplastin Ratio 0.8; Partial Thromboplastin Time 23.1 Seconds (21.0-31.0); Prothrombin Time 10.3 Seconds (9.0-12.0)
[2020-01-18] MEDS ORDERED: D5W AND 1/2NSS 1,000 ML IV SCH (17:00)
[2020-01-18 17:28] LABS: Anisocytosis Present; Basophils # (auto) 0.01 K/uL (0-0.2); Basophils % (auto) 0.3 %; Eosinophils # (auto) 0.03 K/uL (0-0.5); Eosinophils % (auto) 0.9 %; Immature Granulocytes # (auto) 0.02 K/uL (0.00-0.02); Immature Granulocytes % (auto) 0.6 %; Lymphocytes # (auto) 1.19 K/uL (1.2-3.4); Lymphocytes % (auto) 35.1 %; Mean Corpuscular Hgb Conc 34.4 g/dL (32-36); Mean Platelet Volume 8.7 fL (7.4-10.4); Monocytes # (auto) 0.13 K/uL (0.11-0.59); Monocytes % (auto) 3.8 %; Neutrophils # (auto) 2.01 K/uL (1.4-6.5); Neutrophils % (auto) 59.3 %; Platelet Count 54 K/uL (130-400); Platelet Estimate Decreased (Normal); Tear Drop Cells 1+
[2020-01-18] MEDS ORDERED: SODIUM CHLORIDE 0.9% 250 ML IV PRN (18:36)
[2020-01-18] MEDS ORDERED: diphenhydrAMINE 50 MG/ML VIAL IV ONE (18:37)
[2020-01-18] MEDS ORDERED: SODIUM CHLORIDE 0.9% 1000ML 250 ML IV ONE (18:52)
[2020-01-18] MEDS ORDERED: SODIUM CHLORIDE 0.9% 1000ML 1,000 ML IV SCH (19:30)
[2020-01-18] MEDS: SODIUM CHLORIDE 0.9% 1000ML 1,000 ML IV SCH (19:32)
[2020-01-18] MEDS: POTASSIUM CHLORIDE 10 MEQ TABCR PO SCH (20:53)
[2020-01-18] MEDS ORDERED: diphenhydrAMINE 50 MG/ML VIAL ONE (23:46)
[2020-01-18] MEDS: DAPTOmycin 250 MG in SYRINGE 0 ML IV SCH (23:50)
[2020-01-19] MEDS: VALGANCICLOVIR PO SCH ×3 (00:08→21:12)
--- NOTE | 2020-01-19 07:42 | Urology Progress Note ---
Date of Service January 19, 2020 Assessment & Plan (1) Gross hematuria: (2) Anemia: 64 year-old female patient, with multiple comorbidities, admitted with anemia, gross hematuria, and UTI. -Patient with several day history of gross hematuria, noted after tyson catheter placement. -Plan of care reviewed with Dr. Aguilar. -Patient remains afebrile, blood pressure stable. -Labs pending this morning, did receive 2 units PRBC overnight, discussed with lab running STAT. -CT abd/pelvis reviewed and notable for bladder wall thickening at bladder base - possible clot/debris versus bladder mass. -Per nursing, incontinent of urine with continued gross hematuria. -Continue with supportive care and antibiotic therapy. -Keep NPO for planned procedure. -Given persistent gross hematuria, plan to proceed to OR for emergent cystoscopy, possible clot evacuation, and possible fulguration. Risks and benefits discussed and to be reviewed with patient by Dr. Aguilar. OR notified. Preoperative CXR and EKG in chart. COVID negative. Patient covered with IV Daptomycin preoperatively. Admission and Anticipated Discharge Date Admission Date: January 17, 2020 Supervising Physician Co-Signing Physician Notes Spoke with patient about her ongoing gross hematuria. She continues to have gross hematuria. Plan is to take her to the operating room for cystoscopy clot evacuation possible fulguration Procedure risks and benefits discussed as per the consent All of her questions were answered patient agrees to proceed Subjective Patient awake this morning, appears comfortable. Denies fevers or chills. Denies abdominal/flank pain. Continues to have hematuria, nursing reports urine as "quinonez lemonade". Also with clot overnight. Has been incontinent of urine. Patient denies dysuria, frequency, or urgency. Does feel at times she is not emptying her bladder fully. Most recent PVR 180 ml. Denies nausea or vomiting. Has been NPO since midnight, IV fluids present. Chart review: Afebrile Labs 01/18 - pending Labs 01/17 - Wbc 3.39, Hgb 7.5 (received 2 units PRBC overnight), Hct 21.8, creatinine 0.66. Urine culture 01/13 positive for Staph Aureus MRSA, currently on IV Daptomycin - last dose 01/17 2350. Urine BK virus reordered. Denies additional urologic concerns today. Review of Systems Constitutional: as per Subjective / HPI; no fever and no chills Respiratory: no cough and no dyspnea Cardiovascular: no chest pain Gastrointestinal: as per Subjective / HPI; no nausea and no vomiting Genitourinary: as per Subjective / HPI Physical Exam Constitutional: cooperative and comfortable; no acute distress Appears chronically ill. Non-toxic on exam. Respiratory: normal respiratory effort and able to speak in complete sentences; no respiratory distress and no audible wheezes Cardiovascular: Extremities: no edema Gastrointestinal (Abdomen): Inspection/Auscultation: abdomen normal to inspection; abdomen not distended Percussion/Palpation: abdomen soft; abdomen nontender and no guarding Neurologic: + tremor to upper extremities noted. Psychiatric: Orientation: alert, oriented to person, oriented to time and cooperative; + not oriented to place Affect: euthymic affect + oriented to event (knows why she is in hospital) Genitourinary: no CVA tenderness Results & Data ([facility]) Vital Signs (Past 12 Hours) Vital Signs Temp Pulse Pulse Resp BP BP Pulse Ox 01/19/20 04:28 37 C 80 16 104/60 100 01/19/20 03:41 37 C 79 18 118/66 99 01/19/20 03:26 37 C 76 16 99/65 L 99 01/19/20 03:11 37 C 76 16 99/66 L 99 01/19/20 02:56 37.3 C 79 16 105/69 99 01/19/20 02:34 37.1 C 81 16 120/76 98 01/19/20 02:02 36.8 C 86 16 111/78 98 01/19/20 01:02 37.3 C 80 18 106/70 99 01/19/20 00:58 77 01/19/20 00:32 37.1 C 79 16 105/69 99 01/19/20 00:17 37.3 C 79 16 107/70 98 01/18/20 23:52 36.8 C 98 H 18 124/73 99 01/18/20 21:09 36.3 C L 91 H 16 135/81 99 01/18/20 20:38 Pulse Ox 01/19/20 04:28 01/19/20 03:41 01/19/20 03:26 01/19/20 03:11 01/19/20 02:56 01/19/20 02:34 01/19/20 02:02 01/19/20 01:02 01/19/20 00:58 01/19/20 00:32 01/19/20 00:17 01/18/20 23:52 01/18/20 21:09 01/18/20 20:38 100 PG Care Time/CCT Total # of Minutes Spent Total Time Spent with Patient: Total time spent is greater than 50% in coordination of care (as documented) at patient's floor/unit and/or counseling patient: Coding Level of Care Code 32184 Subseq Hosp Care Lvl 3 Diagnoses Gross hematuria R31.0 Anemia D50.9 Anemia type: iron deficiency Iron deficiency anemia type: unspecified iron deficiency (1) Anemia Anemia type: iron deficiency Iron deficiency anemia type: unspecified iron deficiency Qualified Code(s): D50.9 - Iron deficiency anemia, unspecified
[2020-01-19 08:31] LABS: Hemoglobin 10.5 g/dL (12.0-16.0); Mean Corpuscular Hemoglobin 31.3 pg (25-34); Mean Corpuscular Hgb Conc 33.9 g/dL (32-36); Mean Corpuscular Volume 92.5 fL (80-100); Mean Platelet Volume 9.9 fL (7.4-10.4); Platelet Count 58 K/uL (130-400); RDW Coefficient of Variation 21.5 % (11.5-14.5); RDW Standard Deviation 68.3 fL (36.4-46.3); Red Blood Count 3.35 M/uL (4.2-5.4); White Blood Count 4.07 K/uL (4.8-10.8)
[2020-01-19 08:37] LABS: Anisocytosis Present; Basophils # (auto) 0.02 K/uL (0-0.2); Basophils % (auto) 0.5 %; Eosinophils # (auto) 0.08 K/uL (0-0.5); Immature Granulocytes # (auto) 0.01 K/uL (0.00-0.02); Immature Granulocytes % (auto) 0.2 %; Lymphocytes # (auto) 0.83 K/uL (1.2-3.4); Lymphocytes % (auto) 20.4 %; Monocytes # (auto) 0.21 K/uL (0.11-0.59); Monocytes % (auto) 5.2 %; Neutrophils # (auto) 2.92 K/uL (1.4-6.5); Neutrophils % (auto) 71.7 %
[2020-01-19 08:39] LABS: Albumin Level 2.5 gm/dl (3.4-5.0); BUN Creatinine Ratio 17.1 (10-20); Calcium 9.3 mg/dl (8.5-10.1); Creatinine Clr Calc Pharmacy 77.5 ml/min; Est GFR (African American) 108.2; Est GFR (Non-African American) 93.4; Potassium 3.1 mmol/L (3.5-5.1)
[2020-01-19 08:47] LABS: Albumin Globulin Ratio 0.9 (0.9-2); Bilirubin,Total 0.2 mg/dl (0.2-1); Globulin 2.7 gm/dl (2.5-4.0); Total Protein 5.2 gm/dl (6.4-8.2)
--- NOTE | 2020-01-19 08:49 | History & Physical Bridge Note ---
Date of Service January 19, 2020 History & Physical Bridge Note I have examined the patient, reviewed the History & Physical and in the interval since the performance of the History & Physical I have noted the following changes of clinical significance: no changes noted
[2020-01-19] MEDS ORDERED: PROPOFOL IV EMULSION 10 MG/ML 20 ML VIAL IV ONE (09:34)
[2020-01-19] MEDS ORDERED: DEXAMETHASONE SOD INJ 4 MG/ML VIAL ONE (09:34)
[2020-01-19] MEDS ORDERED: ONDANSETRON INJ 2 MG/ML 2 ML VIAL ONE (09:34)
[2020-01-19] MEDS ORDERED: PHENYLEPHRINE 100MCG/ML 5ML SYR ONE (09:34)
[2020-01-19] MEDS ORDERED: ePHEDrine sulfate 50 MG/ML SYR ONE (09:34)
[2020-01-19] MEDS ORDERED: MIDAZOLAM HCL 1 MG/ML 2ML VIAL ONE (09:34)
[2020-01-19] MEDS ORDERED: LIDOCAINE HCL 2% 2 ML VIAL/AMP(20MG/ML) INFIL ONE (09:34)
[2020-01-19] MEDS ORDERED: fentaNYL citrate 100 MCG/2 ML VIAL ONE (09:35)
[2020-01-19] MEDS ORDERED: PROMETHAZINE HCL 6.25 MG in SODIUM CHLORIDE 0.9% 50 ML IV PRN (09:54)
[2020-01-19] MEDS ORDERED: ePHEDrine sulfate 50 MG/ML AMP IV PRN (09:54)
[2020-01-19] MEDS ORDERED: fentaNYL citrate 100 MCG/2 ML VIAL IV PRN (09:54)
[2020-01-19] MEDS ORDERED: ATROPINE SULFATE 0.1 MG/ML 10ML SYR IV PRN (09:54)
[2020-01-19] MEDS ORDERED: ONDANSETRON INJ 2 MG/ML 2 ML VIAL IV PRN (09:54)
--- NOTE | 2020-01-19 09:54 | Anesthesiology Consultation ---
Date of Service January 19, 2020 Assessment & Plan (1) Encounter for pre-operative examination: Chart Review Chart Review: Acceptable Risk for Surgery and Patient NOT seen in Pre Admission Testing Consults Requested none ASA ASA3 Proposed Anesthesia Anesthesia Type: General and MAC Risk / Benefits Reviewed With: PT / POA / Parent / Guardian, Accepts Plan and Informed Consent Obtained History Surgery Operation Date: 01/19/20 09:25 Proposed Procedures p Cystoscopy, Clot Evacuation, Possible Fulguration - Celio Aguilar MD Height/Weight Height: 5 ft 5 in Weight: 63 kg Allergies Allergy/AdvReac Type Severity Reaction Status Date / Time vancomycin Allergy Mild Rash Verified 01/17/20 22:06 nickel Allergy Rash Verified 09/27/19 05:23 Medications Home Medications Medication Instructions Recorded Confirmed Last Taken acetaminophen 650 mg PO QID PRN 01/17/20 01/17/20 Unknown albuterol sulfate [Proventil] 2.5 mg INHALATION Q4H PRN 01/17/20 01/17/20 Unknown atovaquone [Mepron] 1,500 mg PO DAILY 01/17/20 01/17/20 Unknown cholecalciferol (vitamin D3) 50 mcg PO DAILY 01/17/20 01/17/20 Unknown citalopram 20 mg PO DAILY 01/17/20 01/17/20 Unknown folic acid 1 mg PO DAILY 01/17/20 01/17/20 Unknown lorazepam 0.5 mg PO UD PRN 01/17/20 01/17/20 Unknown nystatin 5 ml PO QID 01/17/20 01/17/20 Unknown ondansetron HCl 8 mg PO Q8H PRN 01/17/20 01/17/20 Unknown potassium chloride 10 meq PO UD 01/17/20 01/17/20 Unknown prednisone 5 mg PO DAILY 01/17/20 01/17/20 Unknown thiamine HCl (vitamin B1) 100 mg PO DAILY 01/17/20 01/17/20 Unknown valganciclovir 450 mg PO BID 01/17/20 01/17/20 01/17/20 09:00 Active Medications Generic Name Dose Route Start Last Admin Trade Name Freq PRN Reason Stop Dose Admin Atovaquone 1,500 mg 01/18/20 09:00 01/18/20 07:59 Atovaquone 750 Mg/5 Ml Udc PO 02/17/20 08:59 1,500 mg DAILY ORTEGA Administration Citalopram Hydrobromide 20 mg 01/18/20 09:00 01/18/20 08:00 Citalopram 20 Mg Tab PO 02/17/20 08:59 20 mg DAILY ORTEGA Administration Folic Acid 1 mg 01/18/20 09:00 01/18/20 08:00 Folic Acid 1 Mg Tab PO 02/17/20 08:59 1 mg DAILY ORTEGA Administration Daptomycin 250 mg/ Syringe 5 mls @ 2.5 mls/min 01/17/20 23:00 01/18/20 23:50 IV 01/27/20 22:59 2.5 mls/min Q24H ORTEGA Administration Protocol Sodium Chloride 1,000 mls @ 80 mls/hr 01/18/20 19:30 01/19/20 09:13 Nss 1000ml IV 02/17/20 19:29 Infused .[id number] ORTEAG Infusion Valganciclovir 1 ea 01/18/20 23:00 01/19/20 00:08 PO 02/17/20 22:59 1 tab BID ORTEGA Administration Protocol Nystatin 5 ml 01/17/20 21:00 01/18/20 20:52 Nystatin Susp 500,000 U/5 Ml Udc PO 01/27/20 20:59 5 ml QID ORTEGA Administration Potassium Chloride 10 meq 01/17/20 21:00 01/18/20 20:53 Potassium Chloride 10 Meq Tabcr PO 02/16/20 20:59 10 meq PM ORTEGA Administration Potassium Chloride 20 meq 01/18/20 09:00 01/18/20 07:59 Potassium Chloride Crtab 20 Meq Tabcr PO 02/17/20 08:59 20 meq QAM ORTEGA Administration Prednisone 5 mg 01/18/20 09:00 01/18/20 08:00 Prednisone 5 Mg Tab PO 02/17/20 08:59 5 mg DAILY ORTEGA Administration Thiamine HCl 100 mg 01/18/20 09:00 01/18/20 08:00 Thiamine Hcl 100 Mg Tab PO 02/17/20 08:59 100 mg DAILY ORTEGA Administration Vitamin D 2,000 units 01/18/20 09:00 01/18/20 08:00 Cholecalciferol 1,000 Units 25 Mcg Tab PO 02/17/20 08:59 2,000 units DAILY ORTEGA Administration NPO Date Last Intake of Fluids: 01/18/20 Time Last Intake of Fluids: 18:00 Date Last Intake of Solids: 01/18/20 Time Last Intake of Solids: 12:00 Past Medical History Medical History Adrenal insufficiency CKD (chronic kidney disease) stage 3, GFR 30-59 ml/min Cystocele Foot drop, left 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 Malnutrition Mood disorder Sciatica Upper motor neuron disease Exercise / Class Metabolic Activity II 4-5 Yardwork/Stairs/Walk up hill Past Family History Family History Mother Thalassemia Father Multiple myeloma Other Diabetes Heart disease Past Surgical History Surgical History H/O allogeneic bone marrow transplant Ommaya reservoir present S/P partial hysterectomy Past Anesthesia History No Hx of Anesthesia Complications and No Family Hx of Anesthesia Complications History of PONV No Hx of PONV and No Hx of Motion Sickness Social History Smoking Status: Never smoker Hx Alcohol Use: No Hx Substance Use: No substance use type: does not use Physical Exam Vital Signs Last Vital Signs Temp 36.9 C 01/19/20 09:18 Pulse 82 01/19/20 09:18 Resp 18 01/19/20 09:18 BP 131/89 01/19/20 09:18 Pulse Ox 98 01/19/20 09:18 ENMT Mouth: no dentition abnormality Thyromental Distance: > or= 3.5 Finger Breadths Mallampati Class: II Neck normal visual inspection Respiratory normal respiratory effort Auscultation: lungs clear to auscultation bilaterally Cardiovascular Rate/Rhythm: regular rate and regular rhythm Psychiatric Orientation: alert Testing Laboratory Results 01/19/20 07:43 01/19/20 07:43 PT 10.3 Seconds (9.0-12.0) 01/18/20 16:27 INR 1.0 (0.9-1.1) 01/18/20 16:27 APTT 23.1 Seconds (21.0-31.0) 01/18/20 16:27 Urine Color Red 01/18/20 14:11 Urine Appearance Cloudy (Clear) A 01/18/20 14:11 Urine pH 7.0 (4.5-7.5) 01/18/20 14:11 Ur Specific [place] 1.020 (1.000-1.030) 01/18/20 14:11 Urine Protein 3+ (Negative) H 01/18/20 14:11 Urine Glucose (UA) Negative (Negative) 01/18/20 14:11 Urine Ketones Negative (Negative) 01/18/20 14:11 Urine Nitrite Negative (Negative) 01/18/20 14:11 Ur Leukocyte Esterase Negative (Negative) 01/18/20 14:11 Urine RBC >30 /hpf (0-4) H 01/18/20 14:11 Urine WBC 0-5 /hpf (0-5) 01/18/20 14:11 Ur Epithelial Cells 0-5 /lpf (0-5) 01/18/20 14:11 Blood Type O Positive 01/17/20 17:03 Antibody Screen NEGATIVE 01/17/20 17:03
--- NOTE | 2020-01-19 11:23 | Operative Report ---
PG Post Operative Report Pre & Post Diagnosis Operation Date: 01/19/20 09:25 Pre-Op Diagnosis: HEMATURIA Post-Op Diagnosis: HEMATURIA I identified the patient and participated in the time-out.: Yes Procedure Operation Date: 01/19/20 09:25 Actual Procedures p Cystoscopy, Clot Evacuation, Fulguration(Not Applicable) - Celio Aguilar MD Surgeon Celio Aguilar MD Security Director None Estimated Blood Loss 2 Findings See Below Cystoscopic exam revealed a normal urethra bladder showed a lot of inflammation and several areas of oozing from the mucosa though no bladder tumor seen both ureteral orifices were effluxing clear urine Specimens Bladder biopsy x2 Drains 20 Maori three-way Johnson with a CBI Anesthesia Type General Complications none Disposition Accompanied Patient To Recovery: Yes Disposition: Recovery Room Indications 64-year-old white female with gross hematuria x1 week CT showed clot in the bladder. Patient had ongoing hematuria Taken to the operating for cystoscopy with clot evacuation and fulguration Description of Procedure After the induction of an adequate general anesthetic and appropriate timeout patient was placed in the dorsolithotomy position. Lower abdomen genitalia were prepped with Hibiclens draped in a sterile fashion. Using a 22 Maori scope ro utine cystoscopic exam was formed the above-noted findings with the 30 and 70 lenses. Next using an Ellik evacuator the bladder was irrigated until free of all clot. There was about 60 cc of clot. Next the left and right ureteral orifices were cannulated with ureteral catheters. Using a resection scope and rollerball all the bleeding areas were fulgurated. 2 biopsies were taken of the abnormal mucosa prior to fulguration. After completing the fulguration. Bladder was reinspected. There was no evidence of any further bleeding. The ureteral catheters were removed bladder was drained. 20 Maori three-way Johnson catheter was inserted hooked to gravity drainage with a CBI patient tolerated the procedure well was taken recovery in stable condition. All needle sponge and instrument was were correct I attest to the content of the Intraoperative Record and any orders documented therein. Any exceptions are noted below.
--- NOTE | 2020-01-19 11:50 | Anesthesiology Progress Note ---
Date of Service January 19, 2020 Anesthesia Post Procedure Vital Signs Vital Signs: Temp Pulse Pulse Pulse Resp BP BP 01/19/20 11:45 87 21 121/74 01/19/20 11:40 36.4 C L 83 19 121/73 01/19/20 11:30 86 18 124/74 01/19/20 11:20 83 17 119/68 01/19/20 11:10 83 15 128/73 01/19/20 11:04 37.4 C 79 16 119/74 01/19/20 09:18 36.9 C 82 18 01/19/20 08:30 84 01/19/20 07:00 36.8 C 89 18 01/19/20 04:28 37 C 80 16 104/60 01/19/20 03:41 37 C 79 18 118/66 01/19/20 03:26 37 C 76 16 01/19/20 03:11 37 C 76 16 99/66 L 01/19/20 02:56 37.3 C 79 16 105/69 01/19/20 02:34 37.1 C 81 16 120/76 01/19/20 02:02 36.8 C 86 16 111/78 01/19/20 01:02 37.3 C 80 18 106/70 01/19/20 00:58 77 01/19/20 00:32 37.1 C 79 16 105/69 01/19/20 00:17 37.3 C 79 16 107/70 01/18/20 23:52 36.8 C 98 H 18 124/73 01/18/20 21:09 36.3 C L 91 H 16 01/18/20 20:38 01/18/20 16:00 86 01/18/20 15:32 36.8 C 86 21 01/18/20 12:00 37.1 C 84 20 BP Pulse Ox Pulse Ox 01/19/20 11:45 96 01/19/20 11:40 100 01/19/20 11:30 99 01/19/20 11:20 98 01/19/20 11:10 99 01/19/20 11:04 99 01/19/20 09:18 131/89 98 01/19/20 08:30 01/19/20 07:00 135/66 100 01/19/20 04:28 100 01/19/20 03:41 99 01/19/20 03:26 99/65 L 99 01/19/20 03:11 99 01/19/20 02:56 99 01/19/20 02:34 98 01/19/20 02:02 98 01/19/20 01:02 99 01/19/20 00:58 01/19/20 00:32 99 01/19/20 00:17 98 01/18/20 23:52 99 01/18/20 21:09 135/81 99 01/18/20 20:38 100 01/18/20 16:00 01/18/20 15:32 112/63 98 01/18/20 12:00 106/68 93 Transfer of Care Handoff Completed per policy Notes Mental Status: alert / awake / arousable Patient Amnestic to Procedure: Yes Nausea / Vomiting: adequately controlled Pain: adequately controlled Airway Patency, RR, SpO2: stable & adequate BP & HR: stable & adequate Hydration State: stable & adequate Anesthetic Complications: no major complications apparent
[2020-01-19] MEDS: SODIUM CHLORIDE 0.9% 1000ML 1,000 ML IV SCH ×2 (12:53→23:31)
[2020-01-19] MEDS: POTASSIUM CHLORIDE CRTAB 20 MEQ TABCR PO SCH ×2 (13:42→21:13)
[2020-01-19] MEDS: CITALOPRAM 20 MG TAB PO SCH (13:46)
[2020-01-19] MEDS: FOLIC ACID 1 MG TAB PO SCH (13:46)
[2020-01-19] MEDS: NYSTATIN SUSP 500,000 U/5 ML UDC PO SCH ×4 (13:47→21:13)
[2020-01-19] MEDS: ATOVAQUONE 750 MG/5 ML UDC PO SCH (13:47)
[2020-01-19] MEDS: predniSONE 5 MG TAB PO SCH (13:48)
[2020-01-19] MEDS: THIAMINE HCL 100 MG TAB PO SCH (13:48)
[2020-01-19] MEDS: CHOLECALCIFEROL 1,000 UNITS 25 MCG TAB PO SCH (13:49)
--- NOTE | 2020-01-19 21:05 | Hospitalist Progress Note ---
Date of Service January 19, 2020 Assessment & Plan (1) Hematuria: (Gross hematuria) causing acute blood loss anemia Per Dr. 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 as per admission team "Tyson catheter placed for inability to void while at [facility], discharged home 2 weeks ago and developed hematuria with catheter in place 6 days ago -H&H 6.1/18.2. Hgb was 9.6 last Friday, prior to hematuria starting -Consented, type and crossed for 2u irradiated prbcs -Cause likely multifactorial - mechanical / tyson, pancytopenia worsened by valganciclovir ? ED provider discussed with Dr. Loomis of [facility] who recommends transfusion of blood products and close monitoring (cell: [phone])" -admission CT Abdomen/Pelvis 01/17/2020 "1. Droplet of air within the bladder, possibly iatrogenic 2. Bladder wall thickening and 35 x 24 x 16 mm bladder base opacity. This could represent infectious debris, or a true bladder base mass. Clinical correlation and follow-up will be necessary 3. No evidence of bowel obstruction. No evidence of free air 4. Rectosigmoid wall thickening. The findings are suspicious for a proctocolitis." 01/19/2020 Status post 2 units of packed RBCs, hemoglobin improved from 7-10 Platelet count 58K Status post cystoscopy today with clot evacuation"Cystoscopic exam revealed a normal urethra bladder showed a lot of inflammation and several areas of oozing from the mucosa though no bladder tumor seen both ureteral orifices were effluxing clear urine" Urine culture showing MRSA, continue daptomycin Monitor CBC (2) CMV (cytomegalovirus infection): -Recurrent CMV infection, most recent lab work from 01/05/2020 and was Started on 14-day course of valganciclovir, CMV DNA quant blood labs were drawn (3) Pancytopenia: -the supposition that this could be medication induced is possible but given her history of risk factors of being immunocompromised (history of ALL, history of bone marrow transplant, CMV infections, hematuria) it is difficult to pin point 1 underlying factor -Continue to monitor closely (4) Acute lymphoblastic leukemia (ALL) in remission: (5) H/O allogeneic bone marrow transplant: -Follows with hematology oncology in [place]. 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 Continue home dose prednisone of 5 mg daily (7) Adrenal insufficiency: -Continue prednisone 5 mg daily (8) History of SIADH: -currently serum sodium are acceptable (9) CKD (chronic kidney disease) stage 3, GFR 30-59 ml/min: -monitor creatinine (10) Mood disorder: -Continue SSRI (11) Upper motor neuron disease: Per admitting service notes: - she was admitted to [facility] in November for work up of progressive weakness. Has been improving slowly with therapy. Following with Neuro Oncology in [place] -Wheelchair bound, requiring assistance with transfers and eating -Fall precautions, PT/OT for conditioning (12) Malnutrition: -Ordered Boost BID, dietitian consult, continue thiamine, folic acid and vitamin D supplementation DVT Ppx: SCDs Code status: FULL PCP: Helen Admission and Anticipated Discharge Date Admission Date: January 17, 2020 Subjective Follow-up for hematuria, etc. Patient seen status post cystoscopy Alert, oriented, not in distress Patient states she feels tired but otherwise denies having had any headache, chest pain, shortness of breath abdominal pain, nausea vomiting No other symptoms Review of Systems Review of Systems: All systems reviewed & are unremarkable except as noted in Subjective Physical Exam Physical Exam: General- oriented x 3, not in distress, speaks in sentences with no effort or accessory muscle use Eyes- anicteric Neck- no JVD Lungs- clear breath sounds bilaterally, no rales/wheezes Heart- normal rate, regular rhythm; no murmurs Abdomen- normal bowel sounds, nondistended, soft, nontender Extremities- no pretibial edema, no calf tenderness Neuro- alert, oriented x 3; no gross focal neurologic deficits Skin- warm & dry Results & Data Results & Data ([facility]) Vital Signs (Past 12 Hours) Vital Signs Temp Pulse Pulse Pulse Resp BP BP 01/19/20 16:00 95 H 01/19/20 15:49 36.6 C 87 20 123/84 01/19/20 14:30 36.6 C 88 18 123/83 01/19/20 13:30 36.5 C 85 17 134/83 01/19/20 13:00 36.6 C 77 18 121/76 01/19/20 12:30 36.4 C L 80 16 118/73 01/19/20 12:15 36.5 C 78 18 122/76 01/19/20 12:13 82 01/19/20 12:00 36.4 C L 82 18 120/72 01/19/20 11:45 87 21 121/74 01/19/20 11:40 36.4 C L 83 19 121/73 01/19/20 11:30 86 18 124/74 01/19/20 11:20 83 17 119/68 01/19/20 11:10 83 15 128/73 01/19/20 11:04 37.4 C 79 16 119/74 01/19/20 09:18 36.9 C 82 18 131/89 Pulse Ox 01/19/20 16:00 01/19/20 15:49 98 01/19/20 14:30 100 01/19/20 13:30 99 01/19/20 13:00 99 01/19/20 12:30 99 01/19/20 12:15 100 01/19/20 12:13 01/19/20 12:00 99 01/19/20 11:45 96 01/19/20 11:40 100 01/19/20 11:30 99 01/19/20 11:20 98 01/19/20 11:10 99 01/19/20 11:04 99 01/19/20 09:18 98
[2020-01-20] MEDS: DAPTOmycin 250 MG in SYRINGE 0 ML IV SCH ×2 (00:21→23:14)
[2020-01-20 07:41] LABS: Hematocrit (blood only) 28.6 % (37-47); Hemoglobin 9.7 g/dL (12.0-16.0); Mean Corpuscular Hemoglobin 31.6 pg (25-34); Mean Corpuscular Hgb Conc 33.9 g/dL (32-36); Mean Corpuscular Volume 93.2 fL (80-100); RDW Coefficient of Variation 21.8 % (11.5-14.5); RDW Standard Deviation 67.3 fL (36.4-46.3); Red Blood Count 3.07 M/uL (4.2-5.4); White Blood Count 2.76 K/uL (4.8-10.8)
[2020-01-20 07:45] LABS: Mean Platelet Volume 9.3 fL (7.4-10.4); Platelet Count 46 K/uL (130-400)
--- NOTE | 2020-01-20 07:48 | Urology Progress Note ---
Date of Service January 20, 2020 Assessment & Plan (1) Hematuria: 64 yo F POD #1 s/p cystoscopy, clot evacuation, and fulguration with Dr. Aguilar. - Doing well this morning - Hgb/Hct 9.7/28.6, slight decrease from yesterday - Continue to monitor H/H - Johnson catheter draining clear yellow urine with CBI running on slow at time of exam - CBI clamped during exam @0750, will reassess later today - Discussed with RN and instructions given to restart CBI if pt develops significant hematuria, clots, or discomfort - CBI reassessed this afternoon - Johnson draining yellow urine with minimal pink tinge, no clots noted. - Will d/c CBI, maintain Johnson catheter. Restart CBI if pt develops gross hematuria, clots or discomfort - Continue with supportive care and antibiotic therapy - Will continue to follow Admission and Anticipated Discharge Date Admission Date: January 17, 2020 Subjective 64 yo F POD #1 s/p cystoscopy, clot evacuation, and fulguration with Dr. Juan flores. Pt seen and examined at bedside this AM. Awake, sitting up in bed, eating breakfast. No issues overnight. Offers no complaints at present. Denies abdominal, flank or suprapubic pain. Tolerating Johnson catheter without bother. No dysuria. 20 F three-way Johnson catheter intact, patent, and draining clear yellow urine with CBI running on slow. CBI clamped by myself this morning @0750. Tolerating diet, no nausea or vomiting. No fever or chills. Chart review: Afebrile, Hgb 9.7/Hct 28.6 (previously 10.5/31.0), WBC 2.76, creatinine 0.66, bladder biopsies pending, on IV Daptomycin. No additional concerns today. Review of Systems Constitutional: as per Subjective / HPI Gastrointestinal: as per Subjective / HPI Genitourinary: as per Subjective / HPI Physical Exam Constitutional: chronically ill-appearing, no acute distress Respiratory: normal respiratory effort and able to speak in complete sentences; no respiratory distress and no labored breathing Cardiovascular: Extremities: no pedal edema Gastrointestinal (Abdomen): Inspection/Auscultation: abdomen normal to inspection; abdomen not distended Percussion/Palpation: abdomen soft; abdomen nontender and no guarding Skin: warm and dry Neurologic: moves all extremities and awake tremor noted Psychiatric: Orientation: alert, oriented to person and cooperative Genitourinary: no CVA tenderness No suprapubic tenderness. 20 F three-way Johnson catheter intact, patent, draining clear yellow urine with CBI running on slow. CBI clamped during exam @0750. Results & Data ([facility]) Vital Signs (Past 12 Hours) Vital Signs Temp Pulse Pulse Resp BP Pulse Ox 01/20/20 03:38 36.7 C 80 18 114/73 96 01/20/20 00:46 36.7 C 82 16 131/81 98 01/19/20 23:58 82 PG Care Time/CCT Total # of Minutes Spent Total Time Spent with Patient: Total time spent is greater than 50% in coordination of care (as documented) at patient's floor/unit and/or counseling patient: Coding Level of Care Code 88787 Subseq Hosp Care Lvl 2 Diagnoses Hematuria R31.9
[2020-01-20 08:03] LABS: Anisocytosis Present; Basophils # (auto) 0.01 K/uL (0-0.2); Basophils % (auto) 0.4 %; Eosinophils # (auto) 0.08 K/uL (0-0.5); Eosinophils % (auto) 2.9 %; Immature Granulocytes # (auto) 0.02 K/uL (0.00-0.02); Immature Granulocytes % (auto) 0.7 %; Lymphocytes # (auto) 0.64 K/uL (1.2-3.4); Lymphocytes % (auto) 23.2 %; Monocytes # (auto) 0.16 K/uL (0.11-0.59); Monocytes % (auto) 5.8 %; Neutrophils # (auto) 1.85 K/uL (1.4-6.5); Polychromasia 1+
[2020-01-20] MEDS: THIAMINE HCL 100 MG TAB PO SCH (08:13)
[2020-01-20] MEDS: FOLIC ACID 1 MG TAB PO SCH (08:13)
[2020-01-20] MEDS: predniSONE 5 MG TAB PO SCH (08:14)
[2020-01-20] MEDS: NYSTATIN SUSP 500,000 U/5 ML UDC PO SCH ×4 (08:14→21:04)
[2020-01-20] MEDS: CHOLECALCIFEROL 1,000 UNITS 25 MCG TAB PO SCH (08:14)
[2020-01-20] MEDS: ATOVAQUONE 750 MG/5 ML UDC PO SCH (08:15)
[2020-01-20] MEDS: CITALOPRAM 20 MG TAB PO SCH (08:15)
[2020-01-20] MEDS: POTASSIUM CHLORIDE CRTAB 20 MEQ TABCR PO SCH (08:16)
[2020-01-20 08:19] LABS: BUN Creatinine Ratio 14.2 (10-20); Creatinine Clr Calc Pharmacy 77.5 ml/min; Est GFR (African American) 108.2; Est GFR (Non-African American) 93.4; Potassium 3.7 mmol/L (3.5-5.1)
[2020-01-20] MEDS: VALGANCICLOVIR PO SCH ×2 (09:40→21:14)
[2020-01-20] MEDS: SODIUM CHLORIDE 0.9% 1000ML 1,000 ML IV SCH (12:31)
--- NOTE | 2020-01-20 19:59 | Hospitalist Progress Note ---
Date of Service January 20, 2020 Assessment & Plan (1) Gross hematuria: (1) Hematuria: (Gross hematuria) causing acute blood loss anemia Per Dr. 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 as per admission team "Tyson catheter placed for inability to void while at [facility], discharged home 2 weeks ago and developed hematuria with catheter in place 6 days ago -H&H 6.1/18.2. Hgb was 9.6 last Friday, prior to hematuria starting -Consented, type and crossed for 2u irradiated prbcs -Cause likely multifactorial - mechanical 2/2 tyson, pancytopenia worsened by valganciclovir ? ED provider discussed with Dr. Loomis of [facility] who recommends transfusion of blood products and close monitoring (cell: [phone])" -admission CT Abdomen/Pelvis 01/17/2020 "1. Droplet of air within the bladder, possibly iatrogenic 2. Bladder wall thickening and 35 x 24 x 16 mm bladder base opacity. This could represent infectious debris, or a true bladder base mass. Clinical correlation and follow-up will be necessary 3. No evidence of bowel obstruction. No evidence of free air 4. Rectosigmoid wall thickening. The findings are suspicious for a proctocolitis." 01/19/2020 Status post 2 units of packed RBCs, hemoglobin improved from 7-10 Platelet count 58K Status post cystoscopy today with clot evacuation"Cystoscopic exam revealed a normal urethra bladder showed a lot of inflammation and several areas of oozing from the mucosa though no bladder tumor seen both ureteral orifices were effluxing clear urine" Urine culture showing MRSA, continue daptomycin Monitor CBC 01/20/2020 Hemoglobin today 9.7 from 10 Normal intermittent blood-tinged urine noted Patient asymptomatic Continue to monitor closely, including hemoglobin Continue daptomycin for UTI MRSA ID consulted (2) CMV (cytomegalovirus infection): -Recurrent CMV infection, most recent lab work from 01/05/2020 and was Started on 14-day course of valganciclovir, CMV DNA quant blood labs were drawn -Continue valganciclovir until 01/21/2020 Follow-up CMV DNA (3) Pancytopenia: -the supposition that this could be medication induced is possible but given her history of risk factors of being immunocompromised (history of ALL, history of bone marrow transplant, CMV infections, hematuria) it is difficult to pin point 1 underlying factor -Discussed with water ski assembler Dr. Wall Does not recommend platelet pheresis unless patient develops gross hematuria--we will need leukoreduced, irradiated platelets if transfusion is indicated Continue to monitor CBC (4) Acute lymphoblastic leukemia (ALL) in remission: (5) H/O allogeneic bone marrow transplant: Per admitting service notes: -Follows with hematology oncology in [place]. Currently in remission -she is on 1500 mg Atovaquone daily for prophylaxis against opportunistic infect ions (6) 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: Per admitting service notes: -in the past, she had complication of stem cell transplant as per admissions team. Continue home dose prednisone of 5 mg daily (7) Adrenal insufficiency: -Continue prednisone 5 mg daily (8) History of SIADH: -currently serum sodium are acceptable (9) CKD (chronic kidney disease) stage 3, GFR 30-59 ml/min: -monitor creatinine (10) Mood disorder: -Continue SSRI (11) Upper motor neuron disease: Per admitting service notes: - she was admitted to [facility] in November for work up of progressive weakness. Has been improving slowly with therapy. Following with Neuro Oncology in [place] -Wheelchair bound, requiring assistance with transfers and eating -Fall precautions, PT/OT (12) Malnutrition: -Ordered Boost BID, dietitian consult, continue thiamine, folic acid and vitamin D supplementation DVT Ppx: SCDs In light of gross hematuria Code status: FULL Disposition: PT OT evaluation ordered Lives with at home PCP: Helen Admission and Anticipated Discharge Date Admission Date: January 17, 2020 Subjective Follow-up for hematuria, UTI, etc. Minimal intermittent blood-tinged urine per clinical staff educator Seen sitting up in bed, comfortable, having lunch In good spirits Oriented x3 States she feels improved overall Denies abdominal pain, nausea vomiting, fevers or chills, chest pain, shortness of breath, dizziness, headache No other symptoms Review of Systems Review of Systems: All systems reviewed & are unremarkable except as noted in Subjective Physical Exam Physical Exam: General- oriented x 3, not in distress, speaks in sentences with no effort or accessory muscle use Eyes- anicteric Neck- no JVD Lungs- clear breath sounds bilaterally, no rales/wheezes Heart- normal rate, regular rhythm; no murmurs Abdomen- normal bowel sounds, nondistended, soft, nontender Extremities- no pretibial edema, no calf tenderness Neuro- alert, oriented x 3; no gross focal neurologic deficits Skin- warm & dry Results & Data Results & Data ([facility]) Vital Signs (Past 12 Hours) Vital Signs Temp Pulse Resp BP Pulse Ox 01/20/20 19:50 36.9 C 83 16 136/79 96 01/20/20 15:06 36.8 C 84 18 126/79 99 01/20/20 12:16 36.9 C 94 H 20 137/82 91 Laboratory Results Laboratory Results - last 24 hr 01/20/20 01/20/20 07:01 07:01 WBC 2.76 L RBC 3.07 L Hgb 9.7 L Hct 28.6 L MCV 93.2 MCH 31.6 MCHC 33.9 RDW Std Deviation 67.3 H RDW Coeff of Julissa 21.8 H Plt Count 46 L MPV 9.3 Immature Gran % (Auto) 0.7 Neut % (Auto) 67.0 Lymph % (Auto) 23.2 [place] % (Auto) 5.8 Eos % (Auto) 2.9 Baso % (Auto) 0.4 Neut # (Auto) 1.85 Lymph # (Auto) 0.64 L Elliott # (Auto) 0.16 Eos # (Auto) 0.08 Baso # (Auto) 0.01 Immature Gran # (Auto) 0.02 Polychromasia 1+ Anisocytosis Present Sodium 141 Potassium 3.7 D Chloride 109 H Carbon Dioxide 28 Anion Gap 4.0 BUN 9 Creatinine 0.66 Est Cr Clr Drug Dosing 77.5 Est GFR ( Amer) 108.2 Est GFR (Non-Af Amer) 93.4 BUN/Creatinine Ratio 14.2 Glucose 89 Calcium 9.0
[2020-01-21 07:01] LABS: CMV DNA Qnt Real Time PCR <200 IU/mL (<200); CMV DNA Quant PCR <2.30 log IU/mL (<2.30)
--- NOTE | 2020-01-21 07:48 | Urology Progress Note ---
Date of Service January 21, 2020 Assessment & Plan (1) Hematuria: 64 year-old female patient, with multiple comorbidities, admitted with anemia, gross hematuria, and UTI. - POD #2 s/p cystoscopy, clot evacuation, and fulguration with Dr. Aguilar. - Clinically progressing as expected from standpoint. - Remains afebrile. - Labs pending this am. - CBI discontinued yesterday, urine now clear yellow. - Continue with supportive care and antibiotic therapy per primary team. - No additional acute intervention indicated at this time. - Okay to remove tyson catheter today. - Will arrange follow-up with urology service as outpatient once discharged. Thank you for allowing us to participate in the acute care of Mrs. Felix. Please reconsult us with additional questions, concerns or changes in patient status. Admission and Anticipated Discharge Date Admission Date: January 17, 2020 Subjective 64 yo F POD #2 s/p cystoscopy, clot evacuation, and fulguration with Dr. Aguilar. Patient seen and examined at bedside. She is comfortable and denies any pain. No issues overnight. Offers no complaints at present. Denies abdominal, flank or suprapubic pain. Tolerating tyson catheter, draining clear yellow urine off CBI. Tolerating diet, no nausea or vomiting. No fever or chills. Chart review: Afebrile. Labs pending this am. Labs 12/ - Hgb 9.7/Hct 28.6 (previously 10.5/31.0), WBC 2.76, creatinine 0.66. Currently on IV Daptomycin for MRSA UTI. Bladder, biopsies: - #1. Chronic cystitis. - #2. Negative for in situ and invasive carcinoma. No additional concerns today. Review of Systems Constitutional: as per Subjective / HPI; no fever and no chills Gastrointestinal: as per Subjective / HPI; no nausea and no vomiting Genitourinary: as per Subjective / HPI Physical Exam Constitutional: cooperative and comfortable; no acute distress and not ill appearing Respiratory: normal respiratory effort and able to speak in complete sentences; no respiratory distress and no audible wheezes Gastrointestinal (Abdomen): Inspection/Auscultation: abdomen normal to inspection; abdomen not distended Percussion/Palpation: abdomen soft; abdomen nontender and no guarding Psychiatric: Orientation: alert, oriented to person, oriented to time and cooperative; + not oriented to place Affect: euthymic affect Genitourinary: no CVA tenderness Tyson catheter intact draining clear yellow urine. Results & Data ([facility]) Vital Signs (Past 12 Hours) Vital Signs Temp Pulse Pulse Resp BP Pulse Ox Pulse Ox 01/21/20 04:03 36.9 C 84 18 131/77 96 01/21/20 00:00 82 01/20/20 23:30 36.7 C 82 18 122/72 95 01/20/20 20:00 96 01/20/20 19:50 36.9 C 83 16 136/79 96 PG Care Time/CCT Total # of Minutes Spent Total Time Spent with Patient: Total time spent is greater than 50% in coordination of care (as documented) at patient's floor/unit and/or counseling patient: Coding Level of Care Code 47623 Subseq Hosp Care Lvl 2 Diagnoses Hematuria R31.9
[2020-01-21 08:02] LABS: Hematocrit (blood only) 29.4 % (37-47); Hemoglobin 9.7 g/dL (12.0-16.0); Mean Corpuscular Hemoglobin 31.1 pg (25-34); Mean Corpuscular Volume 94.2 fL (80-100); RDW Coefficient of Variation 21.8 % (11.5-14.5); RDW Standard Deviation 69.2 fL (36.4-46.3); Red Blood Count 3.12 M/uL (4.2-5.4); White Blood Count 2.62 K/uL (4.8-10.8)
[2020-01-21 08:11] LABS: Basophils # (auto) 0.01 K/uL (0-0.2); Basophils % (auto) 0.4 %; Eosinophils # (auto) 0.08 K/uL (0-0.5); Eosinophils % (auto) 3.1 %; Immature Granulocytes # (auto) 0.01 K/uL (0.00-0.02); Immature Granulocytes % (auto) 0.4 %; Lymphocytes # (auto) 0.94 K/uL (1.2-3.4); Lymphocytes % (auto) 35.9 %; Mean Platelet Volume 9.9 fL (7.4-10.4); Monocytes # (auto) 0.17 K/uL (0.11-0.59); Monocytes % (auto) 6.5 %; Neutrophils # (auto) 1.41 K/uL (1.4-6.5); Neutrophils % (auto) 53.7 %; Platelet Count 46 K/uL (130-400)
[2020-01-21 08:33] LABS: Anisocytosis Present; Macrocytosis Present; Ovalocytes 1+
[2020-01-21 08:34] LABS: Calcium 8.7 mg/dl (8.5-10.1); Creatinine Clr Calc Pharmacy 75.2 ml/min; Est GFR (African American) 107.1; Est GFR (Non-African American) 92.4; Potassium 3.2 mmol/L (3.5-5.1)
[2020-01-21] MEDS: THIAMINE HCL 100 MG TAB PO SCH (09:13)
[2020-01-21] MEDS: VALGANCICLOVIR PO SCH ×2 (09:13→20:00)
[2020-01-21] MEDS: predniSONE 5 MG TAB PO SCH (09:13)
[2020-01-21] MEDS: CHOLECALCIFEROL 1,000 UNITS 25 MCG TAB PO SCH (09:13)
[2020-01-21] MEDS: FOLIC ACID 1 MG TAB PO SCH (09:13)
[2020-01-21] MEDS: ATOVAQUONE 750 MG/5 ML UDC PO SCH (09:13)
[2020-01-21] MEDS: NYSTATIN SUSP 500,000 U/5 ML UDC PO SCH ×4 (09:13→19:59)
[2020-01-21] MEDS: CITALOPRAM 20 MG TAB PO SCH (09:13)
[2020-01-21] MEDS: POTASSIUM CHLORIDE CRTAB 20 MEQ TABCR PO SCH ×2 (11:18→19:59)
[2020-01-21] MEDS ORDERED: POTASSIUM CHLORIDE CRTAB 20 MEQ TABCR PO SCH (21:00)
--- NOTE | 2020-01-21 21:02 | Hospitalist Progress Note ---
Date of Service January 21, 2020 Assessment & Plan (1) Gross hematuria: (1) Hematuria: (Gross hematuria) causing acute blood loss anemia Per Dr. 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 as per admission team "Tyson catheter placed for inability to void while at [facility], discharged home 2 weeks ago and developed hematuria with catheter in place 6 days ago -H&H 6.1/18.2. Hgb was 9.6 last Friday, prior to hematuria starting -Consented, type and crossed for 2u irradiated prbcs -Cause likely multifactorial - mechanical 2/2 tyson, pancytopenia worsened by valganciclovir ? ED provider discussed with Dr. Loomis of [facility] who recommends transfusion of blood products and close monitoring (cell: [phone])" -admission CT Abdomen/Pelvis 01/17/2020 "1. Droplet of air within the bladder, possibly iatrogenic 2. Bladder wall thickening and 35 x 24 x 16 mm bladder base opacity. This could represent infectious debris, or a true bladder base mass. Clinical correlation and follow-up will be necessary 3. No evidence of bowel obstruction. No evidence of free air 4. Rectosigmoid wall thickening. The findings are suspicious for a proctocolitis." 01/19/2020 Status post 2 units of packed RBCs, hemoglobin improved from 7-10 Platelet count 58K Status post cystoscopy today with clot evacuation"Cystoscopic exam revealed a normal urethra bladder showed a lot of inflammation and several areas of oozing from the mucosa though no bladder tumor seen both ureteral orifices were effluxing clear urine" Urine culture showing MRSA, continue daptomycin Monitor CBC 01/20/2020 Hemoglobin today 9.7 from 10 Normal intermittent blood-tinged urine noted Patient asymptomatic Continue to monitor closely, including hemoglobin Continue daptomycin for UTI MRSA ID consulted 01/21/2020 Globin stable at 9.7 No hematuria noted so far Clinically improving Continue to monitor Continue daptomycin for UTI MRSA, ID service notes reviewed DC Tyson catheter per urology service (2) CMV (cytomegalovirus infection): -Recurrent CMV infection, most recent lab work from 01/05/2020 and was Started on 14-day course of valganciclovir, CMV DNA quant blood labs were drawn -Continue valganciclovir until 01/21/2020 Follow-up CMV DNA (3) Pancytopenia: -the supposition that this could be medication induced is possible but given her history of risk factors of being immunocompromised (history of ALL, history of bone marrow transplant, CMV infections, hematuria) it is difficult to pin point 1 underlying factor -Discussed with ore crushing dust collector Dr. Wall Does not recommend platelet pheresis unless patient develops gross hematuria--we will need leukoreduced, irradiated platelets if transfusion is indicated Continue to monitor CBC (4) Acute lymphoblastic leukemia (ALL) in remission: (5) H/O allogeneic bone marrow transplant: Per admitting service notes: -Follows with hematology oncology in [place]. 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 Continue home dose prednisone of 5 mg daily (7) Adrenal insufficiency: -Continue prednisone 5 mg daily (8) History of SIADH: -currently serum sodium are acceptable (9) CKD (chronic kidney disease) stage 3, GFR 30-59 ml/min: -monitor creatinine (10) Mood disorder: -Continue SSRI (11) Upper motor neuron disease: Per admitting service notes: - she was admitted to [facility] in November for work up of progressive weakness. Has been improving slowly with therapy. Following with Neuro Oncology in [place] -Wheelchair bound, requiring assistance with transfers and eating -Fall precautions, PT/OT (12) Malnutrition: -Ordered Boost BID, dietitian consult, continue thiamine, folic acid and vitamin D supplementation DVT Ppx: SCDs In light of gross hematuria Code status: FULL Disposition: PT OT evaluation ordered Lives with at home PCP: Helen Plan of care discussed with patient and her over the phone in detail and at length All questions were answered They are understanding, agreeable, comfortable plan of care Admission and Anticipated Discharge Date Admission Date: January 17, 2020 Subjective Follow-up for hematuria, MRSA UTI, etc. Seen sitting up in bed, comfortable, just had lunch Portable, not in distress, in good spirits She continues to feel improved Denies fevers or chills, abdominal pain, nausea or vomiting No hematuria per RN No chest pain, shortness of breath, palpitations, dizziness No other symptom Review of Systems Review of Systems: All systems reviewed & are unremarkable except as noted in Subjective Physical Exam 2 Physical Exam: General- oriented x 3, not in distress, speaks in sentences with no effort or accessory muscle use Eyes- anicteric Neck- no JVD Lungs- clear BS bilaterally, no crackles, no wheezing bilaterally Heart- normal rate, regular rhythm; no murmurs Abdomen- normal bowel sounds, nondistended, soft, nontender Extremities- no pretibial edema, no calf tenderness Neuro- alert, oriented x 3; no gross focal neurologic deficits Skin- warm & dry Results & Data Results & Data ([facility]) Vital Signs (Past 12 Hours) Vital Signs Temp Pulse Resp BP Pulse Ox 01/21/20 15:00 36.8 C 82 20 123/74 93 01/21/20 11:14 37.0 C 80 19 128/75 98 Laboratory Results Laboratory Results - last 24 hr 01/17/20 01/21/20 01/21/20 19:07 07:32 07:32 WBC 2.62 L RBC 3.12 L Hgb 9.7 L Hct 29.4 L MCV 94.2 MCH 31.1 MCHC 33.0 RDW Std Deviation 69.2 H RDW Coeff of Julissa 21.8 H Plt Count 46 L MPV 9.9 Immature Gran % (Auto) 0.4 Neut % (Auto) 53.7 Lymph % (Auto) 35.9 [place] % (Auto) 6.5 Eos % (Auto) 3.1 Baso % (Auto) 0.4 Neut # (Auto) 1.41 Lymph # (Auto) 0.94 L [place] # (Auto) 0.17 Eos # (Auto) 0.08 Baso # (Auto) 0.01 Immature Gran # (Auto) 0.01 Anisocytosis Present Macrocytosis Present Ovalocytes 1+ Sodium 139 Potassium 3.2 L Chloride 105 Carbon Dioxide 27 Anion Gap 8.0 BUN 6 L Creatinine 0.68 Est Cr Clr Drug Dosing 75.2 Est GFR ( Amer) 107.1 Est GFR (Non-Af Amer) 92.4 BUN/Creatinine Ratio 9.0 L Glucose 91 POC Glucose Calcium 8.7 Magnesium CMV Specimen Source Whole Blood CMV Qnt PCR IU/mL <200 CMV Qnt PCR log IU/mL <2.30 BK Virus DNA Quant PCR Cancelled Virus Source Cancelled 01/21/20 01/21/20 07:32 07:54 WBC RBC Hgb Hct MCV MCH MCHC RDW Std Deviation RDW Coeff of Julissa Plt Count MPV Immature Gran % (Auto) Neut % (Auto) Lymph % (Auto) [place] % (Auto) Eos % (Auto) Baso % (Auto) Neut # (Auto) Lymph # (Auto) [place] # (Auto) Eos # (Auto) Baso # (Auto) Immature Gran # (Auto) Anisocytosis Macrocytosis Ovalocytes Sodium Potassium Chloride Carbon Dioxide Anion Gap BUN Creatinine Est Cr Clr Drug Dosing Est GFR ( Amer) Est GFR (Non-Af Amer) BUN/Creatinine Ratio Glucose POC Glucose 98 Calcium Magnesium 1.8 CMV Specimen Source CMV Qnt PCR IU/mL CMV Qnt PCR log IU/mL BK Virus DNA Quant PCR Virus Source Medications Administered Current Inpatient Medications Acetaminophen (Acetaminophen 325 Mg Tab) 650 mg PO Q4H PRN PRN Reason: Pain or Fever Stop: 02/16/20 20:37 Albuterol (Albuterol 0.083% Nebu Soln 3 Ml Vial) 2.5 mg INH Q4H PRN PRN Reason: Shortness Of Breath Or Wheezin Stop: 02/16/20 20:37 Atovaquone (Atovaquone 750 Mg/5 Ml Udc) 1,500 mg PO DAILY [facility] Stop: 02/17/20 08:59 Last Admin: 01/21/20 09:13 Dose: 1,500 mg Documented by: Citalopram Hydrobromide (Citalopram 20 Mg Tab) 20 mg PO DAILY [facility] Stop: 02/17/20 08:59 Last Admin: 01/21/20 09:13 Dose: 20 mg Documented by: Folic Acid (Folic Acid 1 Mg Tab) 1 mg PO DAILY [facility] Stop: 02/17/20 08:59 Last Admin: 01/21/20 09:13 Dose: 1 mg Documented by: Daptomycin 250 mg/ Syringe 5 mls @ 2.5 mls/min IV Q24H [facility]; Protocol Stop: 01/27/20 22:59 Last Admin: 01/20/20 23:14 Dose: 2.5 mls/min Documented by: Miscellaneous Information (Daptomycin Consult Active) 1 ea N/A UD PRN PRN Reason: Consult Stop: 02/16/20 21:58 Valganciclovir 1 ea PO BID [facility]; Protocol Stop: 02/17/20 22:59 Last Admin: 01/21/20 20:00 Dose: Not Given Documented by: Nystatin (Nystatin Susp 500,000 U/5 Ml Udc) 5 ml PO QID [facility] Stop: 01/27/20 20:59 Last Admin: 01/21/20 19:59 Dose: 5 ml Documented by: Ondansetron HCl (Ondansetron Inj 2 Mg/Ml 2 Ml Vial) 4 mg IV Q6H PRN PRN Reason: Nausea Stop: 02/16/20 20:37 Polyethylene Glycol (Polyethylene (Miralax) 17 Gm Pack) 17 gm PO DAILY PRN PRN Reason: Constipation Stop: 02/16/20 20:37 Potassium Chloride (Potassium Chloride Crtab 20 Meq Tabcr) 40 meq PO BID [facility] Stop: 02/20/20 10:29 Last Admin: 01/21/20 19:59 Dose: 40 meq Documented by: Prednisone (Prednisone 5 Mg Tab) 5 mg PO DAILY [facility] Stop: 02/17/20 08:59 Last Admin: 01/21/20 09:13 Dose: 5 mg Documented by: Thiamine HCl (Thiamine Hcl 100 Mg Tab) 100 mg PO DAILY [facility] Stop: 02/17/20 08:59 Last Admin: 01/21/20 09:13 Dose: 100 mg Documented by: Vitamin D (Cholecalciferol 1,000 Units 25 Mcg Tab) 2,000 units PO DAILY [facility] Stop: 02/17/20 08:59 Last Admin: 01/21/20 09:13 Dose: 2,000 units Documented by: Home Medications Medication Instructions Recorded Confirmed acetaminophen 650 mg PO QID PRN 01/17/20 01/17/20 albuterol sulfate [Proventil] 2.5 mg INHALATION Q4H PRN 01/17/20 01/17/20 atovaquone [Mepron] 1,500 mg PO DAILY 01/17/20 01/17/20 cholecalciferol (vitamin D3) 50 mcg PO DAILY 01/17/20 01/17/20 citalopram 20 mg PO DAILY 01/17/20 01/17/20 folic acid 1 mg PO DAILY 01/17/20 01/17/20 lorazepam 0.5 mg PO UD PRN 01/17/20 01/17/20 nystatin 5 ml PO QID 01/17/20 01/17/20 ondansetron HCl 8 mg PO Q8H PRN 01/17/20 01/17/20 potassium chloride 10 meq PO UD 01/17/20 01/17/20 prednisone 5 mg PO DAILY 01/17/20 01/17/20 thiamine HCl (vitamin B1) 100 mg PO DAILY 01/17/20 01/17/20 valganciclovir 450 mg PO BID 01/17/20 01/17/20
[2020-01-21] MEDS: DAPTOmycin 250 MG in SYRINGE 0 ML IV SCH (23:33)
[2020-01-22 15:23] LABS: CMV DNA PCR Qual NOT DETECTED; Source Urine
[2020-01-22 17:39] LABS: Creatinine Clr Calc Pharmacy 75.2 ml/min; Est GFR (African American) 107.1; Est GFR (Non-African American) 92.4; Potassium 3.5 mmol/L (3.5-5.1)
[2020-01-22] MEDS: NYSTATIN SUSP 500,000 U/5 ML UDC PO SCH ×4 (17:57→21:17)
--- NOTE | 2020-01-22 18:08 | Hospitalist Progress Note ---
Date of Service January 22, 2020 Assessment & Plan (1) Gross hematuria: (1) Hematuria: (Gross hematuria) causing acute blood loss anemia Per Dr. 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 as per admission team "Tyson catheter placed for inability to void while at [facility], discharged home 2 weeks ago and developed hematuria with catheter in place 6 days ago -H&H 6.1/18.2. Hgb was 9.6 last Friday, prior to hematuria starting -Consented, type and crossed for 2u irradiated prbcs -Cause likely multifactorial - mechanical 2/2 tyson, pancytopenia worsened by valganciclovir ? ED provider discussed with Dr. Loomis of [facility] who recommends transfusion of blood products and close monitoring (cell: [phone])" -admission CT Abdomen/Pelvis 01/17/2020 "1. Droplet of air within the bladder, possibly iatrogenic 2. Bladder wall thickening and 35 x 24 x 16 mm bladder base opacity. This could represent infectious debris, or a true bladder base mass. Clinical correlation and follow-up will be necessary 3. No evidence of bowel obstruction. No evidence of free air 4. Rectosigmoid wall thickening. The findings are suspicious for a proctocolitis." 01/19/2020 Status post 2 units of packed RBCs, hemoglobin improved from 7-10 Platelet count 58K Status post cystoscopy today with clot evacuation"Cystoscopic exam revealed a normal urethra bladder showed a lot of inflammation and several areas of oozing from the mucosa though no bladder tumor seen both ureteral orifices were effluxing clear urine" Urine culture showing MRSA, continue daptomycin Monitor CBC 01/20/2020 Hemoglobin today 9.7 from 10 Normal intermittent blood-tinged urine noted Patient asymptomatic Continue to monitor closely, including hemoglobin 01/21/2020 Globin stable at 9.7 No hematuria noted so far Clinically improving Continue to monitor Continue daptomycin for UTI MRSA, ID service notes reviewed DC Tyson catheter per urology service 01/22/2020 Hemoglobin stable at 9.6 no hematuria, Tyson catheter removed Continues to improve Continue daptomycin for UTI MRSA, addition to linezolid upon discharge, but hold citalopram while on linezolid ID consulted-recommend to check BK virus and adenovirus in urine and serum--pending (2) CMV (cytomegalovirus infection): -Recurrent CMV infection, most recent lab work from 01/05/2020 and was Started on 14-day course of valganciclovir, CMV DNA quant blood labs were drawn -Patient given valganciclovir until 01/21/2020 to complete 14 days Follow-up CMV DNA--> not detected (3) Pancytopenia: -the supposition that this could be medication induced is possible but given her history of risk factors of being immunocompromised (history of ALL, history of bone marrow transplant, CMV infections, hematuria) it is difficult to pin point 1 underlying factor -Discussed with snack steward Dr. Wall Does not recommend platelet pheresis unless patient develops gross hematuria--we will need leukoreduced, irradiated platelets if transfusion is indicated WBC decreasing, will continue to monitor Continue to monitor CBC (4) Acute lymphoblastic leukemia (ALL) in remission: (5) H/O allogeneic bone marrow transplant: Per admitting service notes: -Follows with hematology oncology in [place]. 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 Continue home dose prednisone of 5 mg daily (7) Adrenal insufficiency: -Continue prednisone 5 mg daily (8) History of SIADH: -currently serum sodium are acceptable (9) CKD (chronic kidney disease) stage 3, GFR 30-59 ml/min: -monitor creatinine (10) Mood disorder: -Continue SSRI (11) Upper motor neuron disease: Per admitting service notes: - she was admitted to [facility] in November for work up of progressive weakness. Has been improving slowly with therapy. Following with Neuro Oncology in [place] -Wheelchair bound, requiring assistance with transfers and eating -Fall precautions, PT/OT (12) Malnutrition: -Ordered Boost BID, dietitian consult, continue thiamine, folic acid and vitamin D supplementation DVT Ppx: SCDs In light of gross hematuria Code status: FULL Disposition: PT OT evaluation ordered Lives with at home PCP: Helen Admission and Anticipated Discharge Date Admission Date: January 17, 2020 Subjective Follow-up for hematuria, MRSA UTI, etc. Seen resting in bed, comfortable, not in distress Oriented x3, answers all questions appropriate States that she feels fine overall Denies abdominal pain, nausea vomiting, urinary symptoms No chest pain, shortness of breath, headache, dizziness Denies bleeding No other symptoms Review of Systems Review of Systems: All systems reviewed & are unremarkable except as noted in Subjective Physical Exam Physical Exam: General- oriented x 3, not in distress, speaks in sentences with no effort or accessory muscle use Eyes- anicteric Neck- no JVD Lungs- clear BS bilaterally, no crackles, no wheezing auscultated Heart- normal rate, regular rhythm; no murmurs Abdomen- normal bowel sounds, nondistended, soft, nontender Extremities- no pretibial edema, no calf tenderness Neuro- alert, oriented x 3; nogross focal neurologic deficits Skin- warm & dry Results & Data Results & Data ([facility]) Laboratory Results Laboratory Results - last 24 hr 01/18/20 01/18/20 01/22/20 14:11 14:11 05:45 WBC Pending RBC Pending Hgb Pending Hct Pending MCV Pending MCH Pending MCHC Pending Plt Count Pending CMV DNA Qual PCR NOT DETECTED Miscellaneous Test REPORT Ref Lab Test Source Urine
[2020-01-22 18:10] LABS: Hematocrit (blood only) 29.4 % (37-47); Hemoglobin 9.6 g/dL (12.0-16.0); Mean Corpuscular Hemoglobin 31.1 pg (25-34); Mean Corpuscular Hgb Conc 32.7 g/dL (32-36); Mean Corpuscular Volume 95.1 fL (80-100); RDW Coefficient of Variation 21.4 % (11.5-14.5); RDW Standard Deviation 70.8 fL (36.4-46.3); Red Blood Count 3.09 M/uL (4.2-5.4); White Blood Count 1.96 K/uL (4.8-10.8)
[2020-01-22 18:14] LABS: Anisocytosis Present; Basophils # (auto) 0.02 K/uL (0-0.2); Eosinophils # (auto) 0.07 K/uL (0-0.5); Eosinophils % (auto) 3.6 %; Giant Platelets 2+; Immature Granulocytes # (auto) 0.01 K/uL (0.00-0.02); Immature Granulocytes % (auto) 0.5 %; Lymphocytes # (auto) 0.69 K/uL (1.2-3.4); Lymphocytes % (auto) 35.2 %; Mean Platelet Volume 9.6 fL (7.4-10.4); Monocytes % (auto) 10.2 %; Neutrophils # (auto) 0.97 K/uL (1.4-6.5); Neutrophils % (auto) 49.5 %; Platelet Count 46 K/uL (130-400)
[2020-01-22] MEDS: CITALOPRAM 20 MG TAB PO SCH (19:58)
[2020-01-22] MEDS: FOLIC ACID 1 MG TAB PO SCH (19:59)
[2020-01-22] MEDS: POTASSIUM CHLORIDE CRTAB 20 MEQ TABCR PO SCH ×2 (20:00→21:17)
[2020-01-22] MEDS: ATOVAQUONE 750 MG/5 ML UDC PO SCH (20:01)
[2020-01-22] MEDS: THIAMINE HCL 100 MG TAB PO SCH (20:03)
[2020-01-22] MEDS: VALGANCICLOVIR PO SCH ×2 (20:03→21:17)
[2020-01-22] MEDS: predniSONE 5 MG TAB PO SCH (20:03)
[2020-01-22] MEDS: CHOLECALCIFEROL 1,000 UNITS 25 MCG TAB PO SCH (20:05)
[2020-01-22] MEDS: DAPTOmycin 250 MG in SYRINGE 0 ML IV SCH (22:50)
[2020-01-23 06:13] LABS: Hematocrit (blood only) 32.7 % (37-47); Hemoglobin 10.9 g/dL (12.0-16.0); Mean Corpuscular Hemoglobin 32.1 pg (25-34); Mean Corpuscular Hgb Conc 33.3 g/dL (32-36); Mean Corpuscular Volume 96.2 fL (80-100); RDW Coefficient of Variation 20.9 % (11.5-14.5); RDW Standard Deviation 70.6 fL (36.4-46.3); White Blood Count 3.09 K/uL (4.8-10.8)
[2020-01-23 06:16] LABS: Mean Platelet Volume 9.9 fL (7.4-10.4); Platelet Count 53 K/uL (130-400)
[2020-01-23 06:35] LABS: ALC (manual) 0.54 K/uL (1.2-3.4); ANC (manual) 2.27 K/uL (1.4-6.5); Anisocytosis Present; Basophils # (manual) 0.03 K/uL (0-0.2); Basophils % (manual) 0.9 %; Eosinophils # (manual) 0.08 K/uL (0-0.5); Eosinophils % (manual) 2.6 %; Giant Platelets 1+; Large Granular Lymph # (manua 0.49 K/uL; Large Granular Lymph % (manual) 15.8 %; Lymphocytes # (manual) 0.06 K/uL (1.2-3.4); Lymphocytes % (manual) 1.8 %; Monocytes # (manual) 0.16 K/uL (0.11-0.59); Monocytes % (manual) 5.3 %; Neutrophils # (manual) 2.27 K/uL (1.4-6.5); Neutrophils % (manual) 73.6 %
[2020-01-23 06:48] LABS: BUN Creatinine Ratio 13.2 (10-20); Calcium 8.8 mg/dl (8.5-10.1); Creatinine Clr Calc Pharmacy 81.2 ml/min; Est GFR (African American) 109.9; Est GFR (Non-African American) 94.8; Potassium 4.1 mmol/L (3.5-5.1)
[2020-01-23] MEDS: POTASSIUM CHLORIDE CRTAB 20 MEQ TABCR PO SCH (08:28)
[2020-01-23] MEDS: VALGANCICLOVIR PO SCH ×2 (08:28→20:24)
[2020-01-23] MEDS: predniSONE 5 MG TAB PO SCH (08:28)
[2020-01-23] MEDS: CITALOPRAM 20 MG TAB PO SCH (08:29)
[2020-01-23] MEDS: ATOVAQUONE 750 MG/5 ML UDC PO SCH (08:29)
[2020-01-23] MEDS: THIAMINE HCL 100 MG TAB PO SCH (08:29)
[2020-01-23] MEDS: FOLIC ACID 1 MG TAB PO SCH (08:29)
[2020-01-23] MEDS: NYSTATIN SUSP 500,000 U/5 ML UDC PO SCH ×4 (08:29→20:24)
[2020-01-23] MEDS: CHOLECALCIFEROL 1,000 UNITS 25 MCG TAB PO SCH (08:29)
--- NOTE | 2020-01-23 20:10 | Hospitalist Progress Note ---
Date of Service January 23, 2020 Assessment & Plan (1) Gross hematuria: (1) Hematuria: (Gross hematuria) causing acute blood loss anemia Per Dr. 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 as per admission team "Tyson catheter placed for inability to void while at [facility], discharged home 2 weeks ago and developed hematuria with catheter in place 6 days ago -H&H 6.1/18.2. Hgb was 9.6 last Friday, prior to hematuria starting -Consented, type and crossed for 2u irradiated prbcs -Cause likely multifactorial - mechanical 2/2 tyson, pancytopenia worsened by valganciclovir ? ED provider discussed with Dr. Loomis of [facility] who recommends transfusion of blood products and close monitoring (cell: [phone])" -admission CT Abdomen/Pelvis 01/17/2020 "1. Droplet of air within the bladder, possibly iatrogenic 2. Bladder wall thickening and 35 x 24 x 16 mm bladder base opacity. This could represent infectious debris, or a true bladder base mass. Clinical correlation and follow-up will be necessary 3. No evidence of bowel obstruction. No evidence of free air 4. Rectosigmoid wall thickening. The findings are suspicious for a proctocolitis." 01/19/2020 Status post 2 units of packed RBCs, hemoglobin improved from 7-10 Platelet count 58K Status post cystoscopy today with clot evacuation"Cystoscopic exam revealed a normal urethra bladder showed a lot of inflammation and several areas of oozing from the mucosa though no bladder tumor seen both ureteral orifices were effluxing clear urine" Urine culture showing MRSA, continue daptomycin Monitor CBC 01/20/2020 Hemoglobin today 9.7 from 10 Normal intermittent blood-tinged urine noted Patient asymptomatic Continue to monitor closely, including hemoglobin 01/21/2020 Globin stable at 9.7 No hematuria noted so far Clinically improving Continue to monitor Continue daptomycin for UTI MRSA, ID service notes reviewed DC Tyson catheter per urology service 01/22/2020 Hemoglobin stable at 9.6 no hematuria, Tyson catheter removed Continues to improve Continue daptomycin for UTI MRSA, addition to linezolid upon discharge, but hold citalopram while on linezolid ID consulted-recommend to check BK virus and adenovirus in urine and serum--pending 01/23/2020 Hemoglobin stable at 10.9 No hematuria, no problems with voiding Continue daptomycin IV Awaiting PT OT evaluation (2) CMV (cytomegalovirus infection): -Recurrent CMV infection, most recent lab work from 01/05/2020 and was Started on 14-day course of valganciclovir, CMV DNA quant blood labs were drawn -Patient given valganciclovir until 01/21/2020 to complete 14 days Follow-up CMV DNA--> not detected (3) Pancytopenia: -the supposition that this could be medication induced is possible but given her history of risk factors of being immunocompromised (history of ALL, history of bone marrow transplant, CMV infections, hematuria) it is difficult to pin point 1 underlying factor -Discussed with leather polisher Dr. Wall Does not recommend platelet pheresis unless patient develops gross hematuria--we will need leukoreduced, irradiated platelets if transfusion is indicated WBC increasing, platelets also increasing Continue to monitor CBC (4) Acute lymphoblastic leukemia (ALL) in remission: (5) H/O allogeneic bone marrow transplant: Per admitting service notes: -Follows with hematology oncology in [place]. 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 Continue home dose prednisone of 5 mg daily (7) Adrenal insufficiency: -Continue prednisone 5 mg daily (8) History of SIADH: -currently serum sodium are acceptable (9) CKD (chronic kidney disease) stage 3, GFR 30-59 ml/min: -monitor creatinine (10) Mood disorder: -Continue SSRI (11) Upper motor neuron disease: Per admitting service notes: - she was admitted to [facility] in November for work up of progressive weakness. Has been improving slowly with therapy. Following with Neuro Oncology in [place] -Wheelchair bound, requiring assistance with transfers and eating -Fall precautions, PT/OT (12) Malnutrition: -Ordered Boost BID, dietitian consult, continue thiamine, folic acid and vitamin D supplementation DVT Ppx: SCDs In light of gross hematuria Code status: FULL Disposition: PT OT evaluation ordered Lives with at home PCP: Helen Admission and Anticipated Discharge Date Admission Date: January 17, 2020 Subjective Follow-up for MRSA UTI, hematuria, etc. Seen resting in bed, comfortable, not in distress Oriented x3 Answer questions appropriately States she feels fine overall No hematuria noted No problems with voiding after Tyson catheter removal No abdominal pain, nausea vomiting, fevers or chills Denies other symptom Review of Systems Review of Systems: All systems reviewed & are unremarkable except as noted in Subjective Physical Exam Physical Exam: General- oriented x 3, not in distress, speaks in sentences with no effort or accessory muscle use Eyes- anicteric Neck- no JVD Lungs- clear BS BL Heart- normal rate, regular rhythm; no murmurs Abdomen- normal bowel sounds, nondistended, soft, nontender Extremities- no pretibial edema, no calf tenderness Neuro- alert, oriented x 3; no new gross focal neurologic deficits Skin- warm & dry Results & Data Results & Data ([facility]) Vital Signs (Past 12 Hours) Vital Signs Temp Pulse Resp BP Pulse Ox 01/23/20 15:24 37.0 C 83 18 151/89 H 97 Laboratory Results Laboratory Results - last 24 hr 01/22/20 01/23/20 01/23/20 05:45 05:33 05:33 WBC 3.09 L RBC 3.40 L Hgb 10.9 L Hct 32.7 L MCV 96.2 MCH 32.1 MCHC 33.3 RDW Std Deviation 70.6 H RDW Coeff of Julissa 20.9 H Plt Count 53 L MPV 9.9 Neutrophils % (Manual) 73.6 Lymphocytes % (Manual) 1.8 Monocytes % (Manual) 5.3 Eosinophils % (Manual) 2.6 Basophils % (Manual) 0.9 Neutrophils # (Manual) 2.27 Total Absolute Neuts 2.27 Lymphocytes # (Manual) 0.06 L Total Abs Lymphocytes 0.54 L Monocytes # (Manual) 0.16 Eosinophils # (Manual) 0.08 Basophils # (Manual) 0.03 Large Granular Lymphs 15.8 # Lrg Granular Lymphs 0.49 Giant Platelets 1+ Anisocytosis Present Sodium 134 L Potassium 4.1 D Chloride 101 Carbon Dioxide 27 Anion Gap 6.0 BUN 8 Creatinine 0.63 Est Cr Clr Drug Dosing 81.2 Est GFR ( Amer) 109.9 Est GFR (Non-Af Amer) 94.8 BUN/Creatinine Ratio 13.2 Glucose 84 Calcium 8.8 Adenovirus Source Pending Adenovirus (PCR) Pending BK Virus DNA Quant PCR Pending Virus Source Pending
[2020-01-23] MEDS: DAPTOmycin 250 MG in SYRINGE 0 ML IV SCH (22:35)
[2020-01-24 06:33] LABS: Hematocrit (blood only) 35.8 % (37-47); Hemoglobin 11.7 g/dL (12.0-16.0); Mean Corpuscular Hemoglobin 31.4 pg (25-34); Mean Corpuscular Hgb Conc 32.7 g/dL (32-36); RDW Coefficient of Variation 20.8 % (11.5-14.5); Red Blood Count 3.73 M/uL (4.2-5.4); White Blood Count 2.76 K/uL (4.8-10.8)
[2020-01-24 06:51] LABS: Platelet Count 55 K/uL (130-400)
[2020-01-24 07:09] LABS: BUN Creatinine Ratio 12.1 (10-20); Calcium 9.3 mg/dl (8.5-10.1); Creatinine Clr Calc Pharmacy 64.7 ml/min; Est GFR (African American) 91.7; Est GFR (Non-African American) 79.1; Potassium 4.2 mmol/L (3.5-5.1)
[2020-01-24 07:41] LABS: ALC (manual) 1.37 K/uL (1.2-3.4); ANC (manual) 1.15 K/uL (1.4-6.5); Anisocytosis Present; Basophils # (manual) 0.05 K/uL (0-0.2); Basophils % (manual) 1.8 %; Eosinophils % (manual) 3.5 %; Lymphocytes # (manual) 0.32 K/uL (1.2-3.4); Lymphocytes % (manual) 11.5 %; Monocytes % (manual) 3.5 %; Neutrophils # (manual) 1.15 K/uL (1.4-6.5); Neutrophils % (manual) 41.6 %; Reactive Lymphocytes # (manual) 1.05 K/uL; Reactive Lymphocytes % (manual) 38.1 %
[2020-01-24] MEDS: FOLIC ACID 1 MG TAB PO SCH (09:25)
[2020-01-24] MEDS: NYSTATIN SUSP 500,000 U/5 ML UDC PO SCH ×4 (09:25→20:56)
[2020-01-24] MEDS: THIAMINE HCL 100 MG TAB PO SCH (09:25)
[2020-01-24] MEDS: ATOVAQUONE 750 MG/5 ML UDC PO SCH (09:26)
[2020-01-24] MEDS: CHOLECALCIFEROL 1,000 UNITS 25 MCG TAB PO SCH (09:26)
[2020-01-24] MEDS: CITALOPRAM 20 MG TAB PO SCH (09:26)
[2020-01-24] MEDS: predniSONE 5 MG TAB PO SCH (09:26)
[2020-01-24] MEDS: VALGANCICLOVIR PO SCH ×2 (09:27→20:56)
--- NOTE | 2020-01-24 17:29 | Hospitalist Progress Note ---
Date of Service January 24, 2020 Assessment & Plan (1) Gross hematuria: (1) Hematuria: (Gross hematuria) causing acute blood loss anemia Per Dr. 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 as per admission team "Tyson catheter placed for inability to void while at [facility], discharged home 2 weeks ago and developed hematuria with catheter in place 6 days ago -H&H 6.1/18.2. Hgb was 9.6 last Friday, prior to hematuria starting -Consented, type and crossed for 2u irradiated prbcs -Cause likely multifactorial - mechanical 2/2 tyson, pancytopenia worsened by valganciclovir ? ED provider discussed with Dr. Loomis of [facility] who recommends transfusion of blood products and close monitoring (cell: [phone])" -admission CT Abdomen/Pelvis 01/17/2020 "1. Droplet of air within the bladder, possibly iatrogenic 2. Bladder wall thickening and 35 x 24 x 16 mm bladder base opacity. This could represent infectious debris, or a true bladder base mass. Clinical correlation and follow-up will be necessary 3. No evidence of bowel obstruction. No evidence of free air 4. Rectosigmoid wall thickening. The findings are suspicious for a proctocolitis." 01/19/2020 Status post 2 units of packed RBCs, hemoglobin improved from 7-10 Platelet count 58K Status post cystoscopy today with clot evacuation"Cystoscopic exam revealed a normal urethra bladder showed a lot of inflammation and several areas of oozing from the mucosa though no bladder tumor seen both ureteral orifices were effluxing clear urine" Urine culture showing MRSA, continue daptomycin Monitor CBC 01/20/2020 Hemoglobin today 9.7 from 10 Normal intermittent blood-tinged urine noted Patient asymptomatic Continue to monitor closely, including hemoglobin 01/21/2020 Globin stable at 9.7 No hematuria noted so far Clinically improving Continue to monitor Continue daptomycin for UTI MRSA, ID service notes reviewed DC Tyson catheter per urology service 01/22/2020 Hemoglobin stable at 9.6 no hematuria, Tyson catheter removed Continues to improve Continue daptomycin for UTI MRSA, addition to linezolid upon discharge, but hold citalopram while on linezolid ID consulted-recommend to check BK virus and adenovirus in urine and serum--pending 01/23/2020 Hemoglobin stable at 10.9 No hematuria, no problems with voiding Continue daptomycin IV Awaiting PT OT evaluation 01/24/2020 Hg stable at 11 (+) incontinence--> per Urology, continue to monitor for now continue Daptomycin ff up Adenovirus and BK virus (2) CMV (cytomegalovirus infection): -Recurrent CMV infection, most recent lab work from 01/05/2020 and was Started on 14-day course of valganciclovir, CMV DNA quant blood labs were drawn -Patient given valganciclovir until 01/21/2020 to complete 14 days Follow-up CMV DNA--> not detected (3) Pancytopenia: -the supposition that this could be medication induced is possible but given her history of risk factors of being immunocompromised (history of ALL, history of bone marrow transplant, CMV infections, hematuria) it is difficult to pin point 1 underlying factor -Discussed with cook helper dessert Dr. Wall Does not recommend platelet pheresis unless patient develops gross hematuria--we will need leukoreduced, irradiated platelets if transfusion is indicated WBC stable overall Continue to monitor CBC (4) Acute lymphoblastic leukemia (ALL) in remission: (5) H/O allogeneic bone marrow transplant: Per admitting service notes: -Follows with hematology oncology in [place]. 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 Continue home dose prednisone of 5 mg daily (7) Adrenal insufficiency: -Continue prednisone 5 mg daily (8) History of SIADH: -currently serum sodium are acceptable (9) CKD (chronic kidney disease) stage 3, GFR 30-59 ml/min: -monitor creatinine (10) Mood disorder: -Continue SSRI (11) Upper motor neuron disease: Per admitting service notes: - she was admitted to [facility] in November for work up of progressive weakness. Has been improving slowly with therapy. Following with Neuro Oncology in [place] -Wheelchair bound, requiring assistance with transfers and eating -Fall precautions, PT/OT --> recommend 24 hour care or Rehab (12) Malnutrition: -Ordered Boost BID, dietitian consult, continue thiamine, folic acid and vitamin D supplementation DVT Ppx: SCDs In light of gross hematuria Code status: FULL Disposition: PT OT evaluation ordered--> recommend 24 hour care or Rehab Lives with at home PCP: Helen Admission and Anticipated Discharge Date Admission Date: January 17, 2020 Subjective ff up for hematuria, MRSA UTI seen resting in bed, in good spirits states she feels fine overall no hematuria, (+) incontinence no abdominal pain, fever/chills no other symptoms Review of Systems Review of Systems: All systems reviewed & are unremarkable except as noted in Subjective Physical Exam Physical Exam: General- oriented x 3, not in distress, speaks in sentences with no effort or accessory muscle use Eyes- anicteric Neck- no JVD Lungs- clear BS bilaterally Heart- normal rate, regular rhythm; no murmurs Abdomen- normal bowel sounds, nondistended, soft, nontender Extremities- no pretibial edema, no calf tenderness Neuro- alert, oriented x 3; no gross focal neurologic deficits Skin- warm & dry Results & Data Results & Data ([facility]) Vital Signs (Past 12 Hours) Vital Signs Temp Pulse Resp BP Pulse Ox 01/24/20 16:55 36.9 C 94 H 18 157/81 H 99 01/24/20 07:22 36.8 C 87 18 131/79 98 Laboratory Results Laboratory Results - last 24 hr 01/22/20 01/24/20 01/24/20 05:45 05:48 05:48 WBC 2.76 L RBC 3.73 L Hgb 11.7 L Hct 35.8 L MCV 96.0 MCH 31.4 MCHC 32.7 RDW Std Deviation 71.0 H RDW Coeff of Julissa 20.8 H Plt Count 55 L MPV 9.0 Neutrophils % (Manual) 41.6 Lymphocytes % (Manual) 11.5 Reactive Lymphs % (Man) 38.1 Monocytes % (Manual) 3.5 Eosinophils % (Manual) 3.5 Basophils % (Manual) 1.8 Neutrophils # (Manual) 1.15 L Total Absolute Neuts 1.15 L Lymphocytes # (Manual) 0.32 L Reactive Lymphs # 1.05 Total Abs Lymphocytes 1.37 Monocytes # (Manual) 0.10 L Eosinophils # (Manual) 0.10 Basophils # (Manual) 0.05 Anisocytosis Present Sodium 136 Potassium 4.2 Chloride 101 Carbon Dioxide 31 Anion Gap 4.0 BUN 10 Creatinine 0.79 Est Cr Clr Drug Dosing 64.7 Est GFR ( Amer) 91.7 Est GFR (Non-Af Amer) 79.1 BUN/Creatinine Ratio 12.1 Glucose 99 Calcium 9.3 Total Creatine Kinase 21 L Adenovirus Source Cancelled Adenovirus (PCR) Cancelled
[2020-01-24] MEDS: DAPTOmycin 250 MG in SYRINGE 0 ML IV SCH (23:52)
[2020-01-25 06:26] LABS: BUN Creatinine Ratio 21.1 (10-20); Creatinine Clr Calc Pharmacy 75.2 ml/min; Est GFR (African American) 107.1; Est GFR (Non-African American) 92.4; Potassium 3.2 mmol/L (3.5-5.1)
[2020-01-25] MEDS: VALGANCICLOVIR PO SCH ×2 (08:43→21:36)
[2020-01-25] MEDS: THIAMINE HCL 100 MG TAB PO SCH (08:44)
[2020-01-25] MEDS: CITALOPRAM 20 MG TAB PO SCH (08:44)
[2020-01-25] MEDS: ATOVAQUONE 750 MG/5 ML UDC PO SCH (08:44)
[2020-01-25] MEDS: CHOLECALCIFEROL 1,000 UNITS 25 MCG TAB PO SCH (08:44)
[2020-01-25] MEDS: NYSTATIN SUSP 500,000 U/5 ML UDC PO SCH ×4 (08:44→21:35)
[2020-01-25] MEDS: FOLIC ACID 1 MG TAB PO SCH (08:44)
[2020-01-25] MEDS: predniSONE 5 MG TAB PO SCH (08:44)
[2020-01-25] MEDS: POTASSIUM CHLORIDE CRTAB 20 MEQ TABCR PO SCH ×2 (12:54→21:35)
--- NOTE | 2020-01-25 14:16 | Hospitalist Progress Note ---
Date of Service January 25, 2020 Assessment & Plan (1) Gross hematuria: (1) Hematuria: (Gross hematuria) causing acute blood loss anemia Per Dr. 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 as per admission team "Tyson catheter placed for inability to void while at [facility], discharged home 2 weeks ago and developed hematuria with catheter in place 6 days ago -H&H 6.1/18.2. Hgb was 9.6 last Friday, prior to hematuria starting -Consented, type and crossed for 2u irradiated prbcs -Cause likely multifactorial - mechanical 2/ tyson, pancytopenia worsened by valganciclovir ? ED provider discussed with Dr. Loomis of [facility] who recommends transfusion of blood products and close monitoring (cell: [phone])" -admission CT Abdomen/Pelvis 01/17/2020 "1. Droplet of air within the bladder, possibly iatrogenic 2. Bladder wall thickening and 35 x 24 x 16 mm bladder base opacity. This could represent infectious debris, or a true bladder base mass. Clinical correlation and follow-up will be necessary 3. No evidence of bowel obstruction. No evidence of free air 4. Rectosigmoid wall thickening. The findings are suspicious for a proctocolitis." Status post 2 units of packed RBCs, hemoglobin improved from 7-->10 Status post cystoscopy with clot evacuation"Cystoscopic exam revealed a normal urethra bladder showed a lot of inflammation and several areas of oozing from the mucosa though no bladder tumor seen both ureteral orifices were effluxing clear urine" Urine culture showing MRSA, patient placed on daptomycin IV Hematuria gradually resolved remains stable Tyson catheter removed for urology service recommendation ID service consulted, recommend to continue daptomycin and transition to linezolid upon discharge (will need 6 more days of p.o. linezolid upon discharge) Citalopram has to be held while patient is on linezolid to avoid serotonin syndrome Adenovirus and BK virus in the serum and urine ordered, to rule out hemorrhagic cystitis due to this infection in patient status post transplant--> results pending please follow-up (2) CMV (cytomegalovirus infection): -Recurrent CMV infection, most recent lab work from 01/05/2020 and was Started on 14-day course of valganciclovir, CMV DNA quant blood labs were drawn -Patient given valganciclovir until 01/21/2020, she has completed a 14-day course Follow-up CMV DNA--> not detected (3) Pancytopenia: -the supposition that this could be medication induced is possible but given her history of risk factors of being immunocompromised (history of ALL, history of bone marrow transplant, CMV infections, hematuria) it is difficult to pin point 1 underlying factor -Discussed with environmental research scientist Dr. Wall Does not recommend platelet pheresis unless patient develops gross hematuria--we will need leukoreduced, irradiated platelets if transfusion is indicated CBC stable overall Continue to monitor CBC as outpatient (4) Acute lymphoblastic leukemia (ALL) in remission: (5) H/O allogeneic bone marrow transplant: Per admitting service notes: -Follows with hematology oncology in [place]. 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 Continue home dose prednisone of 5 mg daily (7) Adrenal insufficiency: -Continue prednisone 5 mg daily (8) History of SIADH: -currently serum sodium are acceptable (9) CKD (chronic kidney disease) stage 3, GFR 30-59 ml/min: -monitor creatinine (10) Mood disorder: -Continue SSRI (11) Upper motor neuron disease: Per admitting service notes: - she was admitted to [facility] in November for work up of progressive weakness. Has been improving slowly with therapy. Following with Neuro Oncology in [place] -Wheelchair bound, requiring assistance with transfers and eating -Fall precautions, PT/OT --> recommend 24 hour care or Rehab, home health services with PT and OT (12) Malnutrition: -Ordered Boost BID, dietitian consult, continue thiamine, folic acid and vitamin D supplementation DVT Ppx: SCDs In light of gross hematuria Code status: FULL Disposition: [place] home with home health services Lives with at home Follow-up with Dr. Cervantes in 1 week Plan of care discussed with patient and her over the phone in detail and at length All questions were answered She is understanding, agreeable, comfortable with the plan of care Admission and Anticipated Discharge Date Admission Date: January 17, 2020 Subjective ff up for hematuria, MRSA UTI seen resting in bed, comfortable states she feels fine overall denies abdominal pain, nausea/vomiting, chills no hematuria no other symptoms states she is ready for discharge Review of Systems Review of Systems: All systems reviewed & are unremarkable except as noted in Subjective Physical Exam Physical Exam: General- oriented x 3, not in distress, speaks in sentences with no effort or accessory muscle use Eyes- anicteric Neck- no JVD Lungs- clear BS BL no rales/wheezing Heart- normal rate, regular rhythm; no murmurs Abdomen- normal bowel sounds, nondistended, soft, nontender Extremities- no pretibial edema, no calf tenderness Neuro- alert, oriented x 3; no gross focal neurologic deficits Skin- warm & dry Results & Data Results & Data ([facility]) Vital Signs (Past 12 Hours) Vital Signs Temp Pulse Resp BP Pulse Ox 01/25/20 08:18 36.9 C 81 18 107/66 98 Laboratory Results Laboratory Results - last 24 hr 01/25/20 01/25/20 05:21 05:21 Sodium 132 L Potassium 3.2 L D Chloride 98 Carbon Dioxide 28 Anion Gap 6.0 BUN 14 Creatinine 0.68 Est Cr Clr Drug Dosing 75.2 Est GFR ( Amer) 107.1 Est GFR (Non-Af Amer) 92.4 BUN/Creatinine Ratio 21.1 H Glucose 91 Calcium 9.0 Magnesium 1.9
[2020-01-25] MEDS: DAPTOmycin 250 MG in SYRINGE 0 ML IV SCH (23:25)
[2020-01-26] MEDS: NYSTATIN SUSP 500,000 U/5 ML UDC PO SCH ×2 (09:12→14:03)
[2020-01-26] MEDS: THIAMINE HCL 100 MG TAB PO SCH (09:12)
[2020-01-26] MEDS: predniSONE 5 MG TAB PO SCH (09:13)
[2020-01-26] MEDS: FOLIC ACID 1 MG TAB PO SCH (09:13)
[2020-01-26] MEDS: CHOLECALCIFEROL 1,000 UNITS 25 MCG TAB PO SCH (09:13)
[2020-01-26] MEDS: ATOVAQUONE 750 MG/5 ML UDC PO SCH (09:13)
[2020-01-26] MEDS: VALGANCICLOVIR PO SCH (09:13)
[2020-01-26] MEDS: CITALOPRAM 20 MG TAB PO SCH (09:13)
[2020-01-26] MEDS: POTASSIUM CHLORIDE CRTAB 20 MEQ TABCR PO SCH (09:13)
--- NOTE | 2020-01-26 13:48 | Hospitalist Progress Note ---
Date of Service January 26, 2020 Assessment & Plan (1) Gross hematuria: (1) Hematuria /Hemorrhagic cystitis Per Dr. 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 as per admission team "Tyson catheter placed for inability to void while at [facility], discharged home 2 weeks ago and developed hematuria with catheter in place 6 days ago -H&H 6.1/18.2. Hgb was 9.6 last Friday, prior to hematuria starting -Consented, type and crossed for 2u irradiated prbcs -Cause likely multifactorial - mechanical 2/2 tyson, pancytopenia worsened by valganciclovir ? ED provider discussed with Dr. Loomis of [facility] heme who re commends transfusion of blood products and close monitoring (cell: [phone])" -admission CT Abdomen/Pelvis 01/17/2020 "1. Droplet of air within the bladder, possibly iatrogenic 2. Bladder wall thickening and 35 x 24 x 16 mm bladder base opacity. This could represent infectious debris, or a true bladder base mass. Clinical correlation and follow-up will be necessary 3. No evidence of bowel obstruction. No evidence of free air 4. Rectosigmoid wall thickening. The findings are suspicious for a proctocolitis." (Gross hematuria) causing acute blood loss anemia: Status post 2 units of packed RBCs, hemoglobin improved from 7-->10 Status post cystoscopy with clot evacuation"Cystoscopic exam revealed a normal urethra bladder showed a lot of inflammation and several areas of oozing from the mucosa though no bladder tumor seen both ureteral orifices were effluxing clear urine" Urine culture showing MRSA, patient placed on daptomycin IV will be discharged on PO Zyvox /linezolid Hematuria gradually resolved remains stable Tyson catheter removed for urology service recommendation ID service consulted, recommend to continue daptomycin and transition to linezolid upon discharge (will need 6 more days of p.o. linezolid upon discharge) Counselled Pt not to take Citalopram while taking linezolid to avoid serotonin syndrome Adenovirus and BK virus in the serum and urine ordered, to rule out hemorrhagic cystitis due to this infection in patient status post transplant--> results pending please follow-up with family Physician /Clinic viit (2) CMV (cytomegalovirus infection): -Recurrent CMV infection, most recent lab work from 01/05/2020 and was Started on 14-day course of valganciclovir, CMV DNA quant blood labs were drawn -Patient given valganciclovir until 01/21/2020, she has completed a 14-day course CMV DNA--> not detected (3) Pancytopenia: -the supposition that this could be medication induced is possible but given her history of risk factors of being immunocompromised (history of ALL, history of bone marrow transplant, CMV infections, hematuria) it is difficult to pin point 1 underlying factor -Dr White Discussed with supply chain coordinator Dr. Wall Does not recommend platelet pheresis unless patient develops gross hematuria--we will need leukoreduced, irradiated platelets if transfusion is indicated CBC stable overall Continue to monitor CBC as outpatient (4) Acute lymphoblastic leukemia (ALL) in remission: (5) H/O allogeneic bone marrow transplant: Per admitting service notes: -Follows with hematology oncology in [place]. 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 Continue home dose prednisone of 5 mg daily (7) Adrenal insufficiency: -Continue prednisone 5 mg daily (8) History of SIADH: -currently serum sodium are acceptable (9) CKD (chronic kidney disease) stage 3, GFR 30-59 ml/min: -monitor creatinine (10) Mood disorder: -Continue SSRI (11) Upper motor neuron disease: Per admitting service notes: - she was admitted to [facility] in November for work up of progressive weakness. Has been improving slowly with therapy. Following with Neuro Oncology in [place] -Wheelchair bound, requiring assistance with transfers and eating -Fall precautions, PT/OT --> recommend 24 hour care or Rehab, home health services with PT and OT (12) Malnutrition: -Ordered Boost BID, dietitian consult, continue thiamine, folic acid and vitamin D supplementation DVT Ppx: SCDs In light of gross hematuria Code status: FULL Disposition: will be discharged home with home services Lives with at home Follow-up with Dr. Cervantes in 1 week Admission and Anticipated Discharge Date Admission Date: January 17, 2020 Subjective offers no new complain no fever or chills , comfortable , denies of any pain Tolerating diet, no nausea or vomiting. No fever or chills. stable to be discharged home today Review of Systems Review of Systems: All systems reviewed & are unremarkable except as noted in HPI & below Physical Exam Constitutional: WD/WN, vitals as above + ill appearing Eyes: PERRL, conjunctivae normal, anicteric sclerae ENMT: external ear and nose normal, oropharynx normal Neck: trachea midline, no thyromegaly Respiratory: normal respiratory effort, lungs clear to auscultation Cardiovascular: RRR, no murmur, no edema Gastrointestinal (Abdomen): Percussion/Palpation: abdomen soft; abdomen nontender Skin: no rashes, warm and dry Neurologic: PERRL, EOMI, accommodation nl, no face palsy, no dysarthria Psychiatric: A+Ox3, euthymic affect Results & Data Results & Data ([facility]) Vital Signs (Past 12 Hours) Vital Signs Temp Pulse Resp BP Pulse Ox 01/26/20 07:31 36.4 C L 88 16 142/83 H 96
--- NOTE | 2020-01-26 15:09 | Discharge Summary ---
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 Patient with complicated health history over the past year, specifically since stem cell transplant in May 2019. Has been admitted to [facility] twice since then, most recently in November 2019 for weakness. Underwent extensive work-up at that time that revealed neuropathy on EMG but no myelopathy. LP, MRI brain and MRA were without abnormality. Was discharged to [facility] to continue conditioning and during this stay, patient had inability to void and a Tyson catheter was placed. Was discharged home with Tyson in place 2 weeks ago and developed hematuria 6 days ago. Urine has been reddish in color with some clots. Has also been some leakage around catheter site and some bladder spasm- like pain. Underwent voiding trial today with catheter removed around noon. Bladder pain subsided at this point, but due to the hematuria, was sent in by home nursing for further evaluation in the ED. Denies any hematuria in the past. Patient states she feels weak, which is her new baseline. Weakness has progressed to the point the patient is wheelchair-bound, requiring help with transfers and assistance with eating. Denies any fever or chills. No lightheadedness, visual changes, headache, confusion, chest pain, palpitations, shortness of breath, nausea, vomiting, abdominal pain, dysuria, diarrhea or cons tipation. Eats mainly liquid diet and has minimal appetite. Follows with hematology in [place]. Labwork from 01/04 showed recurrence of CMV and was directed to start valgancyclovir 450mg PO BID x 14 days. Principal Diagnosis Bladder Infection, Blood in the Urine Discharge Exam Constitutional WD/WN, vitals as above + ill appearing Eyes PERRL, conjunctivae normal, anicteric sclerae ENMT external ear and nose normal, oropharynx normal Neck trachea midline, no thyromegaly Respiratory normal respiratory effort, lungs clear to auscultation Cardiovascular RRR, no murmur, no edema Gastrointestinal (Abdomen) Percussion/Palpation: abdomen soft; abdomen nontender Skin no rashes, warm and dry Neurologic PERRL, EOMI, accommodation nl, no face palsy, no dysarthria Psychiatric A+Ox3, euthymic affect Discharge Data Allergies Allergy/AdvReac Type Severity Reaction Status Date / Time vancomycin Allergy Mild Rash Verified 01/17/20 22:06 nickel Allergy Rash Verified 09/27/19 05:23 Consultations 01/17/20 18:01 ED Decision to Admit Stat 01/17/20 20:38 Consult Case Management - Discharge Planning Routine 01/17/20 20:44 Consult Urology Routine 01/20/20 11:22 Consult Infectious Diseases Routine Procedures Performed Operation Date: 01/19/20 09:25 Actual Procedures p Cystoscopy, Clot Evacuation, Fulguration(Not Applicable) - Celio Aguilar MD Ordered Studies 01/17/20 21:57 CT abd pelvis IV con only Routine Hospital Course (1) Gross hematuria: (1) Hematuria /Hemorrhagic cystitis Per Dr. 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 as per admission team "Tyson catheter placed for inability to void while at [facility], discharged home 2 weeks ago and developed hematuria with catheter in place 6 days ago -H&H 6.1/18.2. Hgb was 9.6 last Friday, prior to hematuria starting -Consented, type and crossed for 2u irradiated prbcs -Cause likely multifactorial - mechanical 2/2 tyson, pancytopenia worsened by valganciclovir ? ED provider discussed with Dr. Loomis of [facility] heme who recommends transfusion of blood products and close monitoring (cell: [phone])" -admission CT Abdomen/Pelvis 01/17/2020 "1. Droplet of air within the bladder, possibly iatrogenic 2. Bladder wall thickening and 35 x 24 x 16 mm bladder base opacity. This could represent infectious debris, or a true bladder base mass. Clinical correlation and follow-up will be necessary 3. No evidence of bowel obstruction. No evidence of free air 4. Rectosigmoid wall thickening. The findings are suspicious for a proctocolitis." (Gross hematuria) causing acute blood loss anemia: Status post 2 units of packed RBCs, hemoglobin improved from 7-->10 Status post cystoscopy with clot evacuation"Cystoscopic exam revealed a normal urethra bladder showed a lot of inflammation and several areas of oozing from the mucosa though no bladder tumor seen both ureteral orifices were effluxing clear urine" Urine culture showing MRSA, patient placed on daptomycin IV will be discharged on PO Zyvox /linezolid Hematuria gradually resolved remains stable Tyson catheter removed for urology service recommendation ID service consulted, recommend to continue daptomycin and transition to linezolid upon discharge (will need 6 more days of p.o. linezolid upon discharge) Counselled Pt not to take Citalopram while taking linezolid to avoid serotonin syndrome Adenovirus and BK virus in the serum and urine ordered, to rule out hemorrhagic cystitis due to this infection in patient status post transplant--> results pending please follow-up with family Physician /Clinic viit (2) CMV (cytomegalovirus infection): -Recurrent CMV infection, most recent lab work from 01/05/2020 and was Started on 14-day course of valganciclovir, CMV DNA quant blood labs were drawn -Patient given valganciclovir until 01/21/2020, she has completed a 14-day course CMV DNA--> not detected (3) Pancytopenia: -the supposition that this could be medication induced is possible but given her history of risk factors of being immunocompromised (history of ALL, history of bone marrow transplant, CMV infections, hematuria) it is difficult to pin point 1 underlying factor -Dr White Discussed with calender wind up tender Dr. Wall Does not recommend platelet pheresis unless patient develops gross hematuria--we will need leukoreduced, irradiated platelets if transfusion is indicated CBC stable overall Continue to monitor CBC as outpatient (4) Acute lymphoblastic leukemia (ALL) in remission: (5) H/O allogeneic bone marrow transplant: Per admitting service notes: -Follows with hematology oncology in [place]. 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 Continue home dose prednisone of 5 mg daily (7) Adrenal insufficiency: -Continue prednisone 5 mg daily (8) History of SIADH: -currently serum sodium are acceptable (9) CKD (chronic kidney disease) stage 3, GFR 30-59 ml/min: -monitor creatinine (10) Mood disorder: -Continue SSRI (11) Upper motor neuron disease: Per admitting service notes: - she was admitted to [facility] in November for work up of progressive weakness. Has been improving slowly with therapy. Following with Neuro Oncology in [place] -Wheelchair bound, requiring assistance with transfers and eating -Fall precautions, PT/OT --> recommend 24 hour care or Rehab, home health services with PT and OT (12) Malnutrition: -Ordered Boost BID, dietitian consult, continue thiamine, folic acid and vitamin D supplementation DVT Ppx: SCDs In light of gross hematuria Code status: FULL Disposition: will be discharged home with home services Lives with at home Follow-up with Dr. Cervantes in 1 week Total Time Total Time Spent Total Time Spent (In Minutes): 30 mins Total Time Includes: Discharge Planning and Medication Reconciliation Discharge Plan Discharge Items Patient Disposition: Home - Home Health Services Reason For Visit: HEMATURIA Discharge Diagnosis: Bladder Infection, Blood in the Urine Activity: Resume your previous activity Activity Comment: gradually as tolerated Non-emergency contact: Primary Care Provider and Urologist Call non-emergency contact if: you have any medication questions, your symptoms worsen and you have a fever Follow-up/Referrals: Jay Heller MD [Physician] - (Office will call patient with appointment date and time) Nioclas Cervantes DO [Primary Care Provider] - 01/28/20 11:20 pm (Date & Time 01/28/2020 11:20 AM Provider Nicolas Cervantes DO Department General Internal Medicine [facility] ) Diet: Regular Addtl Attending Provider Instructions: Please review your new medication list and follow instructions closely. Your new medication is: Linezolid- antibiotic for bladder infection (total of 6 days) Potassium supplement- for low potassium Hold Citalopram for the duration that you are taking Linezolid (6 days). Resume after completing Linezolid course. Take Boost/Ensure drink twice a day. Please call your primary care physician or return to the ER immediately if with worsening of symptoms, Including blood in the urine, pain with urination, fevers or chills, nausea vomiting, weakness. Follow-up with your primary care physician Dr. Cervantes as outlined above. Follow-up with urologist Dr. Judah Heller in 2 weeks. Please call his office to set up an appointment. Contact information outlined above. Do not take Aspirin , over the counter Ibuprophen , naproxen , Motrin , Aleve , Advil -can cause bleeding complication . You can take Tylenol as needed for Pain or Fever Pending Studies at Discharge: Yes Studies:: Results of adenovirus and BK virus tests done while in the hospital Stand-Alone Forms: My [facility], Smoking Cessation Medications and DC Order Prescriptions: New potassium chloride [Klor-Con M20] 20 mEq Tablet,Er Particles/Crystals 40 meq PO DAILY Qty: 14 RF: 0 linezolid 600 mg tablet 600 mg PO BID 6 Days Qty: 12 RF: 0 Continued nystatin 100,000 unit/mL suspension 5 ml PO QID RF: 0 acetaminophen 325 mg Tablet 650 mg PO QID PRN (Reason: Pain) RF: 0 albuterol sulfate 2.5 mg /3 mL (0.083 %) Solution For Nebulization 2.5 mg INHALATION Q4H PRN (Reason: Shortness Of Breath Or Wheezing) RF: 0 ondansetron HCl 8 mg tablet 8 mg PO Q8H PRN (Reason: Nausea) RF: 0 prednisone 5 mg tablet 5 mg PO DAILY RF: 0 thiamine HCl (vitamin B1) 100 mg Tablet 100 mg PO DAILY RF: 0 lorazepam 0.5 mg Tablet 0.5 mg PO UD PRN (Reason: Anxiety) RF: 0 folic acid 1 mg Tablet 1 mg PO DAILY RF: 0 atovaquone [Mepron] 750 mg/5 mL Suspension 1,500 mg PO DAILY RF: 0 cholecalciferol (vitamin D3) 50 mcg (2,000 unit) Tablet 50 mcg PO DAILY RF: 0 Discontinued valganciclovir 450 mg Tablet 450 mg PO BID RF: 0 potassium chloride 10 mEq tablet extended release 10 meq PO UD RF: 0 citalopram 20 mg tablet 20 mg PO DAILY RF: 0 Discharge Orders: Discharge Order (Routine); Ordered 01/26/20 Ordered By: Caroline Nowak/Other Patient Handouts: ED Potassium-Rich Foods, Linezolid tablets Admission Data Admit Date/Time: 01/17/20 19:23 Attending Provider: Caroline Winter Admit Provider: Alfredo Narvaez Primary Care Provider: Nicolas Cervantes Other Providers: [facility] ; Matt Pacheco ; Alfredo Narvaez ; Jay Heller ; Rivas Villanueva ; Luis Anne ; Sudhakar Meyer I. ; Sean Chan II ; Jessica Dutton ; Nathanael Cano ; Kevon White Other Interventions: Discharge Summary Assessment (RN) Last Done: 01/26/20 13:53
[2020-01-27 11:49] LABS: BK Virus Source Whole Blood
== END 2020-01-26 15:05 | disposition home health service (06) | DRG 668 ==
LOC: ED 15:48 → SUATTDRO 19:23 → 2S 19:23 → 3W 01-22 17:17